=== PATIENT | female | born 1990 | race Caucasian/White ===

== ENCOUNTER 2018-01-11 09:37 | Day surgery (SDC) | payer OTHER ==
[~2018-01-11 09:37] MED LIST: MIDAZOLAM 2 MG/2 ML VIAL IV PRN; SODIUM CHLORIDE 0.9% 1,000 ML IV SCH; ceFAZolin 1,000 MG in SODIUM CHLORIDE 0.9% IRRIGATIO 250 ML IRRIGATION ONE; ceFAZolin IN SWFI 2 GM/20 ML SYRINGE IVP ONE; fentaNYL (PF) 50 MCG/ML 2 ML AMP IV PRN
[2018-01-11 10:47] LABS: Basophils % (A) 1 %; Eosinophils # (A) 0.1 k/uL (0-0.7); Eosinophils % (A) 2 %; HGB 13.1 gm/dL (11.4-16.0); Lymphocytes % (A) 23 %; MCH 29.6 pg (25.0-35.0); MCHC 32.7 g/dL (31.0-37.0); MCV 90.5 fL (80.0-100.0); Mean Platelet Volume 10.3; Monocytes # (A) 0.4 k/uL (0-1.0); Monocytes % (A) 10 %; Neutrophils # (A) 2.8 k/uL (1.3-7.7); Neutrophils % (A) 63 %; Platelet Count 148 k/uL (150-450); RBC 4.42 m/uL (3.80-5.40); RDW 13.9 % (11.5-15.5); WBC 4.5 k/uL (3.8-10.6)
[2018-01-11 11:00] LABS: Anion Gap 12 mmol/L; Blood Urea Nitrogen 10 mg/dL (7-17); Calcium 9.3 mg/dL (8.4-10.2); Carbon Dioxide 22 mmol/L (22-30); Chloride 107 mmol/L (98-107); Glucose 79 mg/dL (74-99); Potassium 4.3 mmol/L (3.5-5.1); Sodium 141 mmol/L (137-145)
[2018-01-11] MEDS ORDERED: PROPOFOL 10 MG/ML 20 ML VIAL IV ONE (11:42)
[2018-01-11] MEDS ORDERED: ONDANSETRON 4 MG/2 ML VIAL ONE (11:42)
[2018-01-11] MEDS ORDERED: MIDAZOLAM 2 MG/2 ML VIAL ONE (11:42)
[2018-01-11] MEDS ORDERED: MORPHINE SULFATE 10 MG/ML SYRINGE ONE (11:42)
[2018-01-11] MEDS ORDERED: diphenhydrAMINE 50 MG/ML 1 ML VIAL ONE (11:42)
[2018-01-11] MEDS ORDERED: fentaNYL (PF) 50 MCG/ML 2 ML AMP ONE (11:42)
[2018-01-11] MEDS ORDERED: KETAMINE 10 MG/ML 20 ML VIAL ONE (11:42)
[2018-01-11] MEDS ORDERED: IOPAMIDOL-250 50ML BTL IV ONE (11:50)
[2018-01-11] MEDS ORDERED: LIDOCAINE 1% INJ 10MG/ML (20 ML MDV) SQ ONE (12:15)
[2018-01-11] MEDS ORDERED: ACETAMINOPHEN TAB 325 MG TAB PO PRN (13:03)
--- NOTE | 2018-01-11 13:20 | P.PCN ---
Date of Procedure: 01/11/18 Preoperative Diagnosis: Nonischemic cardiomyopathy and CHF Postoperative Diagnosis: The same Procedure(s) Performed: Single-chamber AICD implantation, axillary venography Description of Procedure: HISTORY: This is a 27-year-old female with history of nonischemic cardiomyopathy and mitral valve disease status post mitral valve replacement was referred by Dr. HOSSEIN Keating for prophylactic AICD implantation. Patient was explained the risks of the procedure including possibility of infection, myocardial perforation, tamponade and bleeding. Patient fully understood and accepted. CONSENT:I have discussed the risks, benefits and alternative therapies for the above-mentioned procedure and for both sedation/analgesia as well as necessary blood product administration, if indicated, as they pertain to this patient. The patient has indicated understanding and acceptance of the risks and procedures discussed. PROCEDURE: Patient was brought to the lab in a fasting state. Patient was prepped and draped in the usual fashion. Department of anesthesia provided analgesia and anesthesia during the procedure.. The skin below the left clavicle was infiltrated with lidocaine. An incision was made parallel to deltopectoral groove was deepened until the pectoral fascia was exposed. A pocket was created by blunt dissection and cautery. Axillary venography was performed to delineate the course of the axillary vein. 1 stick were performed into extrathoracic portion of the axillary vein and 1 sheath was advanced over the guidewires into left in subclavian vein. Conscious Sedation: This was managed by department of anesthesia LEADS: VENTRICULAR: This was manufactured by [employer]. Model number is 6935M-55 cm. Serial number is [id number]. The ventricular lead is maneuvered l with help of a straight and curved stylets into the left ventricle apical region. Satisfactory position was obtained and threshold measurements were made. And thresholds were obtained. THRESHOLDS: VENTRICLE: The minimal patient threshold was 0.5 V at a pulse width of 0.5 ms. R-wave: 5.6 ohms.. The impedance is 1024. Through the device the R waves are about 8 mV. . The shock impedance is 61 ohms. The lead and pulse generator remained in the pocket after it was washed with antibiotics. Pocket was closed in the usual fashion. The fascia was closed with 2-0 Prolene ,the subcutaneous tissue was closed with 3-0 Prolene and the skin was closed with 4-0 Prolene. DFT TESTING: This was performed under general anesthesia. VF was induced with T shock. It was appropriately detected without any fallout' s. However shocks of 15 J followed by 20 J failed to convert patient to sinus rhythm. External defibrillator was performed with success. After 5 minutes. VF was again induced. This was appropriately detected. Shocks of 15 J with reverse polarity failed to convert patient to sinus rhythm, however shocks of 25 J with reverse polarity was successful in converting patient to sinus rhythm. Patient tolerated the procedure well PROGRAMMING: The bradycardia pacing: MODE: VVI RATE: 40 OUTPUT: Ventricle: 3.5 V at pulse width of 0.4 ms Tachycardia Programming: VF zone: This is programmed to a rate of 1 88 bpm. ATP during charging is programmed. The shocks were programmed to 35 J 6 with reverse polarity. VT zone. This was programmed to a rate of 167-188. Therapies were programmed to burst pacing 3 followed by ramp pacing 3 followed by 20 J followed by 35 J 3. All strokes are programmed with reverse polarity FINAL IMPRESSION: # #1. Successful implantation of single-chamber single coil AICD #2. DFT testing #3. Axillary venography COMPLICATIONS: None PLAN:. We will monitored on the telemetry unit. Prophylactic antibiotics we' ll continue. Further recommendations depend upon clinical course. Chest x-ray will obtain tomorrow morning. Possible discharge in am.
[2018-01-11] MEDS: HYDROcodone/APAP 5-325MG 1 EACH TAB PO PRN ×4 (14:03→23:53)
[2018-01-11] MEDS: LACTATED RINGERS 1,000 ML IV SCH (16:14)
[2018-01-11 16:48] VITALS: BMI 24.5
[2018-01-11] MEDS: ceFAZolin IN SWFI 2 GM/20 ML SYRINGE IVP SCH (17:30)
[2018-01-11] MEDS: METOPROLOL TARTRATE 25 MG TAB PO SCH (20:48)
[2018-01-11] MEDS: SACUBITRIL/VALSARTAN 24 MG-26 MG TABLET PO SCH (20:48)
[2018-01-11] MEDS ORDERED: MELATONIN 5 MG TABLET PO SCH (21:00)
[2018-01-12] MEDS: ceFAZolin IN SWFI 2 GM/20 ML SYRINGE IVP SCH ×3 (00:59→12:50)
[2018-01-12] MEDS: HYDROcodone/APAP 5-325MG 1 EACH TAB PO PRN ×2 (06:43→12:54)
[2018-01-12 08:34] VITALS: RESP 18
--- NOTE | 2018-01-12 08:42 | XR ---
EXAMINATION TYPE: XR chest 2V DATE OF EXAM: 01/12/2018 COMPARISON: None INDICATION: Lead placement check TECHNIQUE: Frontal and lateral views of the chest are obtained. FINDINGS: The heart size is mildly prominent. The pulmonary vasculature is normal. The lungs are clear. Pacemaker is over the left chest. Single lead is directed towards the cardiac apex. Sternotomy wires are present from prior cardiac valve surgery. IMPRESSION: 1. No acute pulmonary process. 2. Pacemaker on the left with the lead towards the cardiac apex. No pneumothorax is present.
[2018-01-12] MEDS: METOPROLOL TARTRATE 25 MG TAB PO SCH (08:55)
[2018-01-12] MEDS ORDERED: FUROSEMIDE 20 MG TAB PO SCH (09:00)
[2018-01-12] MEDS ORDERED: SPIRONOLACTONE 25 MG TAB PO SCH (09:00)
[2018-01-12] MEDS: SACUBITRIL/VALSARTAN 24 MG-26 MG TABLET PO SCH (09:09)
[2018-01-12 11:51] VITALS: BP 97/63; PULSE 75; TEMP 97.9
[2018-01-12] MEDS: LACTATED RINGERS 1,000 ML IV SCH (12:19)
--- NOTE | 2018-01-12 15:06 | P.DS ---
Providers Attending physician: Kelli Bauman Primary care physician: Cristiano Marinomley [facility] Course: INTERVAL HISTORY: The patient is a 27-year-old female admitted to the hospital for elective placement of single chamber [employer] AICD for non-ischemic cardiomyopathy and mitral valve disease s/p mitral valve replacement. Procedure was tolerated well with no immediate complications. Chest xray this morning reveals no evidence of pneumothorax with proper lead placement towards cardiac apex. [employer] has done initial check of pacemaker and found to be operating properly. She denies symptoms of chest pain, shortness of breath, dizziness, palpitations, nausea, vomiting or diaphoresis. Telemetry tracings have been unremarkable. Blood pressure 97/63, heart rate 75, respirations 18, temp 97.9. Patient is 96 % room air. Laboratory data reviewed, hemoglobin 13.1 , platelets 148, sodium 141, potassium 4.3, creatinine 0.7. FINAL IMPRESSION: Status post single-chamber AICD placement Nonischemic cardiomyopathy History of mitral valve replacement PLAN: Patient may be able to be discharged home today. Resume all medications. Prescription Keflex 500 mg every 6 hours 3 days and for Finley 5/325 mg when necessary has been given for pain at the incision site. We will make him a follow-up appointment with Dr. Keating in one week. Patient Condition at Discharge: Stable Plan - Discharge Summary Discharge Rx Participant: No New Discharge Prescriptions: New Cephalexin [Keflex] 500 mg PO Q6HR 3 Days #12 cap Continue Metoprolol Tartrate 25 mg PO BID Furosemide [Lasix] 20 mg PO DAILY Spironolactone [Aldactone] 25 mg PO DAILY Sacubitril/Valsartan [Entresto 24 mg-26 mg Tablet] 1 each PO BID Discharge Medication List Furosemide [Lasix] 20 mg PO DAILY 01/06/18 [History] Metoprolol Tartrate 25 mg PO BID 01/06/18 [History] Sacubitril/Valsartan [Entresto 24 mg-26 mg Tablet] 1 each PO BID 01/06/18 [ History] Spironolactone [Aldactone] 25 mg PO DAILY 01/06/18 [History] Cephalexin [Keflex] 500 mg PO Q6HR 3 Days #12 cap 01/12/18 [Rx] Follow up Appointment(s)/Referral(s): Kelli Bauman MD [STAFF PHYSICIAN] - 1 Week
== END 2018-01-12 15:55 | disposition home or self-care (01) ==
LOC: CATHEP 09:37 → 3OBS 12:55 → CATHEP 01-12 15:55
PROVIDERS: ATTEND Internal Medicine Cardiovascular Disease
DX: I42.8 Other cardiomyopathies (principal); Z00.6 Encounter for examination for normal comparison and control in clinical research program; Z95.2 Presence of prosthetic heart valve; Z79.82 Long term (current) use of aspirin; Z79.899 Other long term (current) drug therapy; Z88.8 Allergy status to other drugs, medicaments and biological substances
CPT/HCPCS: 93641; 33249; 80048; 85025; 81025; 71046; C1895; C1722; J2250; J1200; J2270; J2405; J0690 ×3; J2001; J3010; J2704; Q9966

== ENCOUNTER 2018-03-15 10:02 | Day surgery (SDC) | payer OTHER ==
[2018-03-10 12:43] VITALS: BMI 24.2
[~2018-03-15 10:02] MED LIST changes: +HYDROmorphone 0.5 MG/0.5 ML SYRINGE IVP PRN; +LACTATED RINGERS 1,000 ML IV SCH; -ceFAZolin 1,000 MG in SODIUM CHLORIDE 0.9% IRRIGATIO 250 ML IRRIGATION ONE; -ceFAZolin IN SWFI 2 GM/20 ML SYRINGE IVP ONE; -fentaNYL (PF) 50 MCG/ML 2 ML AMP IV PRN
[2018-03-15 11:04] LABS: Basophils % (A) 0 %; Eosinophils # (A) 0.1 k/uL (0-0.7); Eosinophils % (A) 2 %; HCT 33.6 % (34.0-46.0); Lymphocytes # (A) 0.6 k/uL (1.0-4.8); Lymphocytes % (A) 18 %; MCH 29.4 pg (25.0-35.0); MCHC 32.7 g/dL (31.0-37.0); Mean Platelet Volume 10.7; Monocytes # (A) 0.3 k/uL (0-1.0); Monocytes % (A) 9 %; Neutrophils # (A) 2.3 k/uL (1.3-7.7); Neutrophils % (A) 69 %; Platelet Count 103 k/uL (150-450); RBC 3.74 m/uL (3.80-5.40); RDW 13.9 % (11.5-15.5); WBC 3.3 k/uL (3.8-10.6)
[2018-03-15 11:46] LABS: Anion Gap 8 mmol/L; Blood Urea Nitrogen 13 mg/dL (7-17); Calcium 9.1 mg/dL (8.4-10.2); Carbon Dioxide 22 mmol/L (22-30); Chloride 109 mmol/L (98-107); Glucose 87 mg/dL (74-99); Potassium 4.1 mmol/L (3.5-5.1); Sodium 139 mmol/L (137-145)
[2018-03-15] MEDS ORDERED: ceFAZolin IN SWFI 2 GM/20 ML SYRINGE IVP STA (13:19)
[2018-03-15] MEDS ORDERED: IV FLUID CONTINUATION 900 ML IV ONE ×2 (13:20)
[2018-03-15] MEDS ORDERED: METOPROLOL TARTRATE 5 MG/5 ML VIAL IVP ONE ×2 (13:20→15:57)
[2018-03-15] MEDS ORDERED: fentaNYL (PF) 50 MCG/ML 2 ML AMP ONE (13:20)
[2018-03-15] MEDS ORDERED: ISOPROTERENOL 250 MCG/1.25 ML SYR IV ONE (13:20)
[2018-03-15] MEDS ORDERED: MIDAZOLAM 2 MG/2 ML VIAL ONE (13:20)
[2018-03-15] MEDS ORDERED: PROPOFOL 10 MG/ML 20 ML VIAL IV ONE (13:20)
[2018-03-15] MEDS ORDERED: LIDOCAINE 1% INJ 10MG/ML (20 ML MDV) ONE (13:41)
[2018-03-15] MEDS ORDERED: LIDOCAINE 1% INJ 10MG/ML (20 ML MDV) SQ ONE (13:59)
[2018-03-15] MEDS ORDERED: HEPARIN SODIUM (1,000 UNIT/ML) 1,000 UNIT in SODIUM CHLORIDE 0.9% 1,000 ML IRRIGATION ONE (15:18)
[2018-03-15] MEDS ORDERED: ACETAMINOPHEN IV (For NPO) 1,000 MG in EMPTY BAG 1 BAG IVPB ONE (15:59)
[2018-03-15] MEDS ORDERED: ACETAMINOPHEN TAB 325 MG TAB PO PRN (15:59)
--- NOTE | 2018-03-15 16:15 | P.PCN ---
Preoperative Diagnosis: Dear Dr. Hsu Mrs. Parkinson underwent a diagnostic EP study which revealed are very easily inducible right atrial tachycardia with a rapid ventricular response which was responsible for her inappropriate ICD shocks. During the tachycardia her blood pressure would drop below 80 mmHg systolic in the supine position She underwent successful mapping and ablation of the tachycardia. The tachycardia was rendered noninducible I have changed her metoprolol tartrate to metoprolol succinate since she also has a cardiomyopathy. Other medications remain unchanged She will continue to follow with you and Dr. Bauman as before. Thank you for entrusting me with the care of the patient Warm regards Sincerely Lui Dunn
[2018-03-15] MEDS: METOPROLOL SUCCINATE (ER) 50 MG TAB.ER.24H PO SCH (16:56)
[2018-03-15] MEDS: HYDROcodone/APAP 5-325MG 1 EACH TAB PO PRN ×2 (16:56→21:01)
--- NOTE | 2018-03-15 17:27 | PCN ---
PROCEDURE NOTE Radha Parkinson is a 28-year-old female who has cardiomyopathy and a single-chamber ICD. She is a patient of Dr. Cristiano Hsu and Dr. Bauman. She received an inappropriate ICD shock for supraventricular tachycardia with a short RP interval and she was brought in for a diagnostic EP study and radiofrequency ablation. The patient was brought to the EP lab in a fasting state. Written informed consent was obtained prior to the procedure. IV antibiotics were administered prior to the procedure. Right and left groins were prepped. The ICD was interrogated and reprogrammed. VT and VF detections were turned off. Venous sheaths were placed in the right and left femoral veins, and via these diagnostic catheters were placed in the high right atrium, His bundle area, right ventricle and coronary sinus. Sinus cycle length 691 milliseconds, MN interval 185 milliseconds, QRS 86 milliseconds, QT 388 milliseconds. AH and HV intervals were within normal limits. Sinus node recovery time at a paced cycle length of 400 milliseconds was 778 milliseconds. AV node Wenckebach block 290 milliseconds. VA Wenckebach block greater than 400 milliseconds. Supraventricular tachycardia with a short RP interval was very easily inducible with catheter manipulation as well as with high right atrial and CS pacing. Ventricular pacing could not entrain the tachycardia. The tachycardia was dissociated. It had a high to low sequence with a W-shaped morphology in lead V1 and upright in the inferior leads. Isuprel was also started and the tachycardia was inducible with atrial pacing. On low-dose Isuprel, the tachycardia was induced multiple times, both with catheter manipulation as well as with burst stimulation in the coronary sinus to facilitate 3D mapping. An RF ablation catheter was placed in the right atrium. Three-D electroanatomic mapping was performed. The tachycardia was localized to the upper part of the christiano terminalis/upper part of the right atrial free wall. At this site, good diaphragmatic stimulation was tested for and there was no evidence for phrenic nerve stimulation. Thereafter, RF energy was applied, between 25 and 30 cook, and good power and good contact force was achieved and successful ablation was performed. Thereafter, despite atrial and coronary sinus stimulation, the tachycardia could not be induced with up to triple extrastimuli from multiple sites. Burst stimulation was also performed. Straight pacing was also performed. No tachycardia could be induced. All catheters were then removed at the end of the procedure. The patient was transferred back to telemetry. 1. The ICD was re-interrogated and re-programmed. VT zone at 176 beats per minute with appropriate antitachycardia pacing, cardioversion and defibrillation. The patient has a high DFT. 2. VF zone at 214 beats per minute with ATP during charging followed by defibrillation at max output in reverse polarity. Monitor zone was also programmed. 3. Long detection intervals were also programmed. IMPRESSION: Diagnostic EP study revealing right atrial free wall atrial tachycardia was successfully ablated. Single-chamber ICD was re-programmed to long detection intervals to minimize inappropriate ICD shocks. PROCEDURES PERFORMED: 1. Single-chamber ICD interrogation with reprogramming. 2. Comprehensive diagnostic EP study with CS pacing and recording. 3. Comprehensive diagnostic EP study with attempted arrhythmia induction. 4. CS pacing and recording. 5. Drug stimulation. 6. Three-D mapping. 7. Atrial tachycardia/SVT ablation (79069). 8. ICD interrogation with re-programming at the end of the procedure. MMODL / IJN: [id number] /
[2018-03-15 17:30] VITALS: RESP 16
[2018-03-15] MEDS: SACUBITRIL/VALSARTAN 24 MG-26 MG TABLET PO SCH (20:04)
[2018-03-15] MEDS: GABAPENTIN 100 MG CAP PO SCH (20:05)
--- NOTE | 2018-03-16 08:46 | P.DS ---
Providers Attending physician: Lui Dunn Primary care physician: [facility] Course: Patient is doing well. She is resting comfortably in bed no chest discomfort dizziness lightheadedness. Minimal tenderness in the groins. No bleeding no hematoma Normal heart sounds Normal S1 normal S2 Breath sounds are clear no rhonchi no crackles Abdomen Groins of healed well no hematoma no bruising no swelling Impression Coronary myopathy, valvular heart disease Inappropriate ICD shocks secondary to SVT Diagnostic EP study revealed right atrial tachycardia, lateral right atrium, upper Status post successful ablation Suggest Continue current cardiac medications and follow Dr. Bauman in 2 weeks. She will be discharged today in a few hours after she ambulates in the hallways and if her groins are stable Patient Condition at Discharge: Stable Plan - Discharge Summary Discharge Rx Participant: No New Discharge Prescriptions: No Action RX: Metoprolol Tartrate 62.5 mg PO DAILY RX: Furosemide [Lasix] 20 mg PO DAILY RX: Spironolactone [Aldactone] 25 mg PO DAILY RX: Sacubitril/Valsartan [Entresto 24 mg-26 mg Tablet] 1 each PO BID Gabapentin [Neurontin] 100 mg PO TID Discharge Medication List RX: Furosemide [Lasix] 20 mg PO DAILY 01/06/18 [History] RX: Metoprolol Tartrate 62.5 mg PO DAILY 01/06/18 [History] RX: Sacubitril/Valsartan [Entresto 24 mg-26 mg Tablet] 1 each PO BID 01/06/18 [ History] RX: Spironolactone [Aldactone] 25 mg PO DAILY 01/06/18 [History] Gabapentin [Neurontin] 100 mg PO TID 03/10/18 [History]
[2018-03-16] MEDS ORDERED: SPIRONOLACTONE 25 MG TAB PO SCH (09:00)
[2018-03-16] MEDS ORDERED: FUROSEMIDE 20 MG TAB PO SCH (09:00)
[2018-03-16] MEDS: SACUBITRIL/VALSARTAN 24 MG-26 MG TABLET PO SCH (09:56)
[2018-03-16] MEDS: GABAPENTIN 100 MG CAP PO SCH (09:56)
[2018-03-16] MEDS: METOPROLOL SUCCINATE (ER) 50 MG TAB.ER.24H PO SCH (09:56)
[2018-03-16 11:11] VITALS: BP 118/67; PULSE 86; TEMP 97.3
== END 2018-03-16 13:15 | disposition home or self-care (01) ==
LOC: CATHEP 10:02 → 1SOBS 15:52 → CATHEP 03-16 13:15
PROVIDERS: ATTEND Internal Medicine Clinical Cardiac Electrophysiology
DX: T82.198A Other mechanical complication of other cardiac electronic device, initial encounter (principal); I42.0 Dilated cardiomyopathy; I47.1 Supraventricular tachycardia; I10 Essential (primary) hypertension; Z82.49 Family history of ischemic heart disease and other diseases of the circulatory system; Z79.899 Other long term (current) drug therapy; Z88.8 Allergy status to other drugs, medicaments and biological substances; Z72.0 Tobacco use
CPT/HCPCS: 93623; 93613; 93653; 80048; 85025; 81025; C1769 ×3; C1894; C1730 ×2; C1732; J2250; J2001; J3010; J1644; J0131; J2704; J0690

== ENCOUNTER 2018-05-06 22:34 | Observation (INO) | payer OTHER ==
[2018-05-06] MEDS ORDERED: SODIUM CHLORIDE 0.9% 500 ML 500 ML IV STA (22:39)
--- NOTE | 2018-05-06 22:43 | ED ---
Overdose HPI - General Stated Complaint: Overdose, ETOH Time Seen by Provider: 05/06/18 22:39 Source: EMS, RN notes reviewed, old records reviewed Mode of arrival: EMS - History of Present Illness Initial Comments: This is a 28-year-old female with a history of cardiomyopathy heart valve surgery who apparently is not supposed be drinking alcohol but did drink alcohol tonight approximate 8 heart iced teas with a half a pint of schnapps. She also took 5 loose bar. Unclear exactly why. EMS was called and found her unresponsive on the floor and her home she started to arouse once in the a.m. was. She was brought in for evaluation. Patient is a poor historian this time. No trauma is reported. MD Complaint: intentional overdose, other - Related Data Home Medications Medication Instructions Recorded Confirmed Furosemide [Lasix] 20 mg PO DAILY 01/06/18 05/06/18 Metoprolol Tartrate 62.5 mg PO DAILY 01/06/18 03/15/18 Sacubitril/Valsartan [Entresto 24 1 tab PO BID 01/06/18 05/06/18 mg-26 mg Tablet] Spironolactone [Aldactone] 25 mg PO DAILY 01/06/18 05/06/18 Gabapentin [Neurontin] 100 mg PO TID 03/10/18 05/06/18 Buspar Unknown Dose 5 tab PO ONCE 05/06/18 05/06/18 Allergies Allergy/AdvReac Type Severity Reaction Status Date / Time peas Allergy Rash/Hives Verified 05/06/18 22:58 guaifenesin [From Robitussin] AdvReac Nausea & Verified 05/06/18 22:58 Vomiting Review of Systems ROS Statement: Those systems with pertinent positive or pertinent negative responses have been documented in the HPI. ROS Other: All systems not noted in ROS Statement are negative. Limitations: ROS unobtainable due to patients medical condition Past Medical History Past Medical History: Liver Disease Additional Past Medical History / Comment(s): Cardiomyopathy; Hepatitis C; Neurofibromatosis, see Dr Dunn H & P History of Any Multi-Drug Resistant Organisms: None Reported Past Surgical History: AICD, Cardiac Ablation, Cardiac Valve Replacement Additional Past Surgical History / Comment(s): Heart valve replacement in [place], Detached Retina surgery, left lung pneumothorax- after heart valve replacement. liver biopsy 2011. Past Anesthesia/Blood Transfusion Reactions: No Reported Reaction Type of Cardiac Device: AICD Device Placement Date:: 01-11-18 Past Psychological History: Anxiety Smoking Status: Never smoker Past Alcohol Use History: None Reported Past Drug Use History: None Reported - Past Family History Mother Family Medical History: No Reported History General Exam - General Exam Comments Initial Comments: This a well-developed asthenic appearing female who is lethargic but does respond to questioning. There is a smell of alcohol conjoiners on her breath Limitations: altered mental status General appearance: appears intoxicated, lethargic Head exam: Present: atraumatic, normocephalic, normal inspection Eye exam: Present: normal appearance, PERRL, EOMI. Absent: scleral icterus, conjunctival injection, periorbital swelling ENT exam: Present: normal exam, mucous membranes moist Neck exam: Present: normal inspection. Absent: tenderness, meningismus, lymphadenopathy Respiratory exam: Present: normal lung sounds bilaterally. Absent: respiratory distress, wheezes, rales, rhonchi, stridor Cardiovascular Exam: Present: regular rate, normal rhythm, normal heart sounds. Absent: systolic murmur, diastolic murmur, rubs, gallop, clicks GI/Abdominal exam: Present: soft, normal bowel sounds. Absent: distended, tenderness, guarding, rebound, rigid Extremities exam: Present: normal inspection, full ROM, normal capillary refill. Absent: tenderness, pedal edema, joint swelling, calf tenderness Back exam: Present: normal inspection Neurological exam: Present: alert, altered, CN II-XII intact. Absent: motor sensory deficit Psychiatric exam: Present: depressed, flat affect Skin exam: Present: warm, dry, intact, normal color. Absent: rash Course Vital Signs 05/06/18 05/06/18 05/07/18 22:45 23:34 00:00 Temperature 97.1 F L 98.2 F Pulse Rate 101 H 97 87 Respiratory 18 18 20 Rate Blood Pressure 122/89 125/88 121/85 O2 Sat by Pulse 97 95 98 Oximetry Medical Decision Making - Medical Decision Making I did discuss findings with the patient does have acute pancreatitis likely alcohol related. Additionally patient does drink a considerable amount of alcohol on his potential for going into DTs/withdrawals and she does states she is a drink alcohol the morning otherwise she will feel badly - Lab Data Result diagrams: 05/06/18 22:55 05/06/18 22:55 Lab Results 05/06/18 05/06/18 05/06/18 Range/Units 22:55 22:55 22:55 WBC 4.4 (3.8-10.6) k/uL RBC 4.18 (3.80-5.40) m/uL Hgb 11.7 (11.4-16.0) gm/dL Hct 36.8 (34.0-46.0) % MCV 87.9 (80.0-100.0) fL MCH 28.0 (25.0-35.0) pg MCHC 31.8 (31.0-37.0) g/dL RDW 14.8 (11.5-15.5) % Plt Count 120 L (150-450) k/uL Neutrophils % 75 % Lymphocytes % 15 % Monocytes % 7 % Eosinophils % 1 % Basophils % 0 % Neutrophils # 3.3 (1.3-7.7) k/uL Lymphocytes # 0.7 L (1.0-4.8) k/uL Monocytes # 0.3 (0-1.0) k/uL Eosinophils # 0.1 (0-0.7) k/uL Basophils # 0.0 (0-0.2) k/uL PT (9.0-12.0) sec INR (<1.2) Sodium 137 (137-145) mmol/L Potassium 4.0 (3.5-5.1) mmol/L Chloride 103 (98-107) mmol/L Carbon Dioxide 22 (22-30) mmol/L Anion Gap 12 mmol/L BUN 6 L (7-17) mg/dL Creatinine 0.55 (0.52-1.04) mg/dL Est GFR (CKD-EPI)AfAm >90 (>60 ml/min/1.73 sqM) Est GFR (CKD-EPI)NonAf >90 (>60 ml/min/1.73 sqM) Glucose 79 (74-99) mg/dL Calcium 8.6 (8.4-10.2) mg/dL Magnesium 2.0 (1.6-2.3) mg/dL Total Bilirubin 0.4 (0.2-1.3) mg/dL AST 32 (14-36) U/L ALT 40 (9-52) U/L Alkaline Phosphatase 39 (38-126) U/L Total Creatine Kinase 50 (30-135) U/L CK-MB (CK-2) 0.6 (0.0-2.4) ng/mL CK-MB (CK-2) Rel Index 1.2 Troponin I <0.012 (0.000-0.034) ng/mL Total Protein 7.2 (6.3-8.2) g/dL Albumin 4.4 (3.5-5.0) g/dL Amylase 120 H (30-110) U/L Lipase 895 H (23-300) U/L Urine HCG, Qual (Not Detectd) Salicylates <1.0 mg/dL Urine Opiates Screen (NotDetected) Ur Oxycodone Screen (NotDetected) Urine Methadone Screen (NotDetected) Ur Propoxyphene Screen (NotDetected) Acetaminophen <10.0 ug/mL Ur Barbiturates Screen (NotDetected) U Tricyclic Antidepress (NotDetected) Ur Phencyclidine Scrn (NotDetected) Ur Amphetamines Screen (NotDetected) U Methamphetamines Scrn (NotDetected) U Benzodiazepines Scrn (NotDetected) Urine Cocaine Screen (NotDetected) U Marijuana (THC) Screen (NotDetected) Serum Alcohol 148 mg/dL 05/06/18 05/06/18 05/06/18 Range/Units 22:55 23:45 23:45 WBC (3.8-10.6) k/uL RBC (3.80-5.40) m/uL Hgb (11.4-16.0) gm/dL Hct (34.0-46.0) % MCV (80.0-100.0) fL MCH (25.0-35.0) pg MCHC (31.0-37.0) g/dL RDW (11.5-15.5) % Plt Count (150-450) k/uL Neutrophils % % Lymphocytes % % Monocytes % % Eosinophils % % Basophils % % Neutrophils # (1.3-7.7) k/uL Lymphocytes # (1.0-4.8) k/uL Monocytes # (0-1.0) k/uL Eosinophils # (0-0.7) k/uL Basophils # (0-0.2) k/uL PT 10.0 (9.0-12.0) sec INR 0.9 (<1.2) Sodium (137-145) mmol/L Potassium (3.5-5.1) mmol/L Chloride (98-107) mmol/L Carbon Dioxide (22-30) mmol/L Anion Gap mmol/L BUN (7-17) mg/dL Creatinine (0.52-1.04) mg/dL Est GFR (CKD-EPI)AfAm (>60 ml/min/1.73 sqM) Est GFR (CKD-EPI)NonAf (>60 ml/min/1.73 sqM) Glucose (74-99) mg/dL Calcium (8.4-10.2) mg/dL Magnesium (1.6-2.3) mg/dL Total Bilirubin (0.2-1.3) mg/dL AST (14-36) U/L ALT (9-52) U/L Alkaline Phosphatase (38-126) U/L Total Creatine Kinase (30-135) U/L CK-MB (CK-2) (0.0-2.4) ng/mL CK-MB (CK-2) Rel Index Troponin I (0.000-0.034) ng/mL Total Protein (6.3-8.2) g/dL Albumin (3.5-5.0) g/dL Amylase (30-110) U/L Lipase (23-300) U/L Urine HCG, Qual Not Detected (Not Detectd) Salicylates mg/dL Urine Opiates Screen Not Detected (NotDetected) Ur Oxycodone Screen Not Detected (NotDetected) Urine Methadone Screen Not Detected (NotDetected) Ur Propoxyphene Screen Not Detected (NotDetected) Acetaminophen ug/mL Ur Barbiturates Screen Not Detected (NotDetected) U Tricyclic Antidepress Not Detected (NotDetected) Ur Phencyclidine Scrn Not Detected (NotDetected) Ur Amphetamines Screen Not Detected (NotDetected) U Methamphetamines Scrn Not Detected (NotDetected) U Benzodiazepines Scrn Not Detected (NotDetected) Urine Cocaine Screen Not Detected (NotDetected) U Marijuana (THC) Screen Not Detected (NotDetected) Serum Alcohol mg/dL - EKG Data -: EKG Interpreted by Me EKG shows normal: sinus rhythm (Sinus rhythm of 100. Interval 180 QRS duration 100 QT since QTC 390/503 pulmonary disease pattern incomplete right bundle- branch block nonspecific ST configuration prolonged QT by atrial enlargement) Disposition Clinical Impression: Acute pancreatitis, Alcohol intoxication, Medication overdose, Alcohol abuse Disposition: ADMITTED IP TO THIS HOSP Condition: Stable Referrals: Cristiano Hsu MD [Primary Care Provider] - 1-2 days
[2018-05-06 23:20] LABS: Basophils % (A) 0 %; Eosinophils # (A) 0.1 k/uL (0-0.7); Eosinophils % (A) 1 %; HCT 36.8 % (34.0-46.0); HGB 11.7 gm/dL (11.4-16.0); Lymphocytes # (A) 0.7 k/uL (1.0-4.8); Lymphocytes % (A) 15 %; MCHC 31.8 g/dL (31.0-37.0); MCV 87.9 fL (80.0-100.0); Mean Platelet Volume 10.6; Monocytes # (A) 0.3 k/uL (0-1.0); Monocytes % (A) 7 %; Neutrophils # (A) 3.3 k/uL (1.3-7.7); Neutrophils % (A) 75 %; Platelet Count 120 k/uL (150-450); RBC 4.18 m/uL (3.80-5.40); RDW 14.8 % (11.5-15.5); WBC 4.4 k/uL (3.8-10.6)
[2018-05-06 23:21] LABS: INR 0.9 (<1.2)
[2018-05-06 23:25] LABS: ALT 40 U/L (9-52); AST 32 U/L (14-36); Acetaminophen <10.0 ug/mL; Albumin 4.4 g/dL (3.5-5.0); Alkaline Phosphatase 39 U/L (38-126); Amylase 120 U/L (30-110); Anion Gap 12 mmol/L; Blood Urea Nitrogen 6 mg/dL (7-17); Calcium 8.6 mg/dL (8.4-10.2); Carbon Dioxide 22 mmol/L (22-30); Chloride 103 mmol/L (98-107); Glucose 79 mg/dL (74-99); Lipase 895 U/L (23-300); Salicylate <1.0 mg/dL; Sodium 137 mmol/L (137-145); Total Bilirubin 0.4 mg/dL (0.2-1.3); Total Protein 7.2 g/dL (6.3-8.2)
[2018-05-06 23:34] LABS: Alcohol 148 mg/dL
[2018-05-06 23:36] LABS: Creatine Kinase 50 U/L (30-135)
[2018-05-06 23:50] LABS: Creatine Kinase MB 0.6 ng/mL (0.0-2.4); Troponin I <0.012 ng/mL (0.000-0.034)
[2018-05-07 00:07] LABS: Amphetamine Screen,Urine Not Detected (NotDetected); Barbiturate Screen,Urine Not Detected (NotDetected); Benzodiazepines Screen,Urine Not Detected (NotDetected); Cocaine Screen,Urine Not Detected (NotDetected); Methadone Screen, Urine Not Detected (NotDetected); Opiate Screen,Urine Not Detected (NotDetected); Oxycodone Screen, Urine Not Detected (NotDetected); Phencyclidine Screen,Urine Not Detected (NotDetected); Tricyclic Antidepressant,Urine Not Detected (NotDetected); Urn Cannabinoid Scrn Not Detected (NotDetected)
[2018-05-07] MEDS ORDERED: NALOXONE 0.4 MG/ML 1 ML VIAL IV PRN (00:20)
[2018-05-07] MEDS ORDERED: LORazepam 2 MG/ML INJ IV PRN ×3 (00:23)
[2018-05-07] MEDS: SODIUM CHLORIDE 0.9% 1,000 ML IV SCH ×3 (01:07→20:05)
[2018-05-07 03:42] VITALS: BMI 22.2
[2018-05-07] MEDS: GABAPENTIN 100 MG CAP PO SCH ×3 (08:15→20:04)
[2018-05-07] MEDS: FUROSEMIDE 20 MG TAB PO SCH (08:15)
[2018-05-07] MEDS: SPIRONOLACTONE 25 MG TAB PO SCH (08:16)
[2018-05-07] MEDS: SACUBITRIL/VALSARTAN 24 MG-26 MG TABLET PO SCH ×2 (08:16→20:05)
--- NOTE | 2018-05-07 12:41 | P.CN ---
Psychiatric Consult - . Consult date: 05/07/18 Consult:: 05/07/18 09:36 Intentional overdose of alcohol Assessment and Plan Assessment: This is a 28-year-old female with a history of cardiomyopathy heart valve surgery who apparently is not supposed be drinking alcohol but did drink alcohol tonight approximate 8 heart iced teas with a half a pint of schnapps. She also took 5 loose bar. Unclear exactly why. EMS was called and found her unresponsive on the floor and her home she started to arouse once in the a.m. was. She was brought in for evaluation. Patient is a poor historian this time. No trauma is reported. Patient does admit to drinking and has been working with her therapist at [facility] this decrease and stop her drinking. This was not an intentional overdose. MD Complaint: intentional overdose, other - Related Data Home Medications Medication Instructions Recorded Confirmed Furosemide [Lasix] 20 mg PO DAILY 01/06/18 05/06/18 Metoprolol Tartrate 62.5 mg PO DAILY 01/06/18 03/15/18 Sacubitril/Valsartan [Entresto 24 1 tab PO BID 01/06/18 05/06/18 mg-26 mg Tablet] Spironolactone [Aldactone] 25 mg PO DAILY 01/06/18 05/06/18 Gabapentin [Neurontin] 100 mg PO TID 03/10/18 05/06/18 Buspar Unknown Dose 5 tab PO ONCE 05/06/18 05/06/18 Allergies Allergy/AdvReac Type Severity Reaction Status Date / Time peas Allergy Rash/Hives Verified 05/06/18 22:58 guaifenesin [From Robitussin] AdvReac Nausea & Verified 05/06/18 22:58 Vomiting Past Medical History Past Medical History: Liver Disease Additional Past Medical History / Comment(s): Cardiomyopathy; Hepatitis C; Neurofibromatosis, see Dr Dunn H & P History of Any Multi-Drug Resistant Organisms: None Reported Past Surgical History: AICD, Cardiac Ablation, Cardiac Valve Replacement Additional Past Surgical History / Comment(s): Heart valve replacement in [place], Detached Retina surgery, left lung pneumothorax- after heart valve replacement. liver biopsy 2011. Past Anesthesia/Blood Transfusion Reactions: No Reported Reaction Type of Cardiac Device: AICD Device Placement Date:: 01-11-18 Past Psychological History: Anxiety Smoking Status: Never smoker Past Alcohol Use History: None Reported Past Drug Use History: None Reported - Past Family History Mother Family Medical History: No Reported History Mental Status Examination - The patient presents alert, pleasant, and cooperative. There calmly seated without any agitated behavior. [She] reports that [her] mood is good. Affect is congruent and euthymic. [She] deny having any suicidal or homicidal ideation intent or plan. [She] denies any auditory or visual hallucinations. There is no evidence of any delusional thought content. [Her] thought process is linear and goal-directed. [Her] speech is fluent and nonpressured. [Her] memory and concentration is grossly intact for the purposes of this session. Psychiatric impression: Alcohol use disorder moderate with mixed anxiety Psychiatric recommendations: She is to continue to go to [facility] and work with her therapist. I also recommend 90 meetings in 90 days at and talk with her primary care physician about using alternative medicines to help her stop drinking. She does not require a sitter and discussed with the nurse that she does not require a sitter since she is not suicidal homicidal. Thank you for the consult Felipe Mata D.O. PhD (1) Acute pancreatitis Current Visit: Yes Status: Acute Code(s): K85.90 - ACUTE PANCREATITIS WITHOUT NECROSIS OR INFECTION, UNSP SNOMED Code(s): 924776343 (2) Alcohol abuse Current Visit: Yes Status: Acute Code(s): F10.10 - ALCOHOL ABUSE, UNCOMPLICATED SNOMED Code(s): 91569212 Time with Patient: Less than 30
[2018-05-07] MEDS: METOPROLOL SUCCINATE (ER) 25 MG TAB.ER.24H PO SCH (12:59)
[2018-05-07] MEDS: THIAMINE 100 MG TAB PO SCH (16:03)
[2018-05-07] MEDS ORDERED: ENOXAPARIN 40 MG/0.4 ML SYRINGE SQ SCH (22:30)
--- NOTE | 2018-05-08 00:02 | HP ---
HISTORY AND PHYSICAL DATE OF ADMISSION: May 07, 2018 DATE OF SERVICE: May 0705 25. PRESENTING COMPLAINT: Decreased responsiveness. HISTORY OF PRESENTING COMPLAINT: This is a 28-year-old patient who follows with Dr. Hsu. The patient's chronic stable medical conditions include chronic liver disease from hepatitis C, could be from tattoos, cardiomyopathy that she has had as a child, follows with Dr. Ayesha Keating, neurofibromatosis and the patient has AICD. Patient decided to drink with her boyfriend and her father's friends and brought what is Twisted Tea. The patient normally has 3 cans a day, which contains about 5% of alcohol but yesterday decided to drink far more than that and had some other alcoholic drinks and next thing she remembers that she was brought here. She became unresponsive and in the ER, slowly started coming around. Initially the intention was not known. Psychiatry was consulted, which did clear the patient earlier today. The patient told me she had no suicidal ideation and intent except that she was having a good time with people as mentioned above. There was no chest pain or palpitations. In the morning, when I saw this patient, patient is hungry, wanted food. REVIEW OF SYSTEMS: CONSTITUTIONAL: Tired. HEENT: None. RESPIRATORY: None. CARDIOVASCULAR: None. GASTROINTESTINAL: None. GENITOURINARY: None. MUSCULOSKELETAL none. DERMATOLOGICAL, HEMATOLOGIC, LYMPHATIC: none. PSYCHIATRY: None. NEUROLOGICAL: None. PAST MEDICAL HISTORY: Of hepatitis C with liver disease, cardiomyopathy since a child, neurofibromatosis, AICD. PAST SURGICAL HISTORY: AICD, cardiac ablation, cardiac valve replacement, heart valve replacement, detached retina surgery, left lung pneumothorax after heart valve replacement, liver biopsy in 2011, AICD. SOCIAL HISTORY: Smokes 2 cigarettes a day. Drinks 3 cans of Twisted Tea. Has got 5% alcohol. The patient lives with her boyfriend and mother, uncle and also works in a [employer]. FAMILY HISTORY: Reviewed, noncontributory to presentation. HOME MEDICATIONS: 1. Metoprolol 25 mg p.o. daily. 2. BuSpar. 3. Aldactone 25 mg a day. 4. Entresto one tab b.i.d. 5. Neurontin 100 mg t.i.d. 6. Lasix 20 mg p.o. daily. ALLERGIES: GUAIFENESIN, PENICILLIN. PHYSICAL EXAMINATION: VITAL SIGNS: Vital signs on presentation, temperature 97.1, pulse 101, respiratory 18, blood pressure 120/89, pulse ox 97% on room air. GENERAL APPEARANCE: Average build, lying in bed, tired, sitting up, awake. EYES: Pupils equal. Conjunctivae normal. HEENT: External appearance of nose and ears normal. Oral cavity normal. NECK: JVD not raised. Mass not palpable. RESPIRATORY: Effort normal. LUNGS: Fair entry. CARDIOVASCULAR: First and second sounds no edema ABDOMEN: Soft, nontender. Liver and spleen not palpable. LYMPHATICS: No lymph nodes palpable in the neck and axillae. PSYCHIATRY: Alert and oriented x3. Mood and affect normal. NEUROLOGICAL: Pupils equal. Cranial nerves grossly intact. Power and sensation grossly intact. INVESTIGATIONS: White count 4.4, hemoglobin 11.7, platelets 120. Potassium 4.0, BUN 6, creatinine 0.55. Amylase 120, lipase 895. Urine HCG negative. Serum alcohol 148. ASSESSMENT: 1. Decreased responsiveness from acute alcohol intoxication. 2. Acute pancreatitis with minimal symptoms due to alcoholism. 3. Chronic cardiomyopathy, ejection fraction not known. 4. Hepatitis C with chronic liver disease. 5. AICD in place. PLAN: Patient's diet will be advanced. We will keep the patient on gambling monitor. Home medications will be resumed. Will repeat pancreatic enzymes in the morning. Care was discussed with the patient. Advised against smoking and alcohol. I have encouraged the patient to be out of bed as tolerated. Copy to Dr. Hsu. RUSS / CARLOS: [id number] /
[2018-05-08 01:09] VITALS: RESP 16
[2018-05-08 07:18] LABS: Amylase 43 U/L (30-110); Lipase 363 U/L (23-300)
[2018-05-08 07:44] VITALS: PULSE 90
[2018-05-08] MEDS: GABAPENTIN 100 MG CAP PO SCH ×2 (08:25→16:38)
[2018-05-08] MEDS: SPIRONOLACTONE 25 MG TAB PO SCH (08:25)
[2018-05-08] MEDS: SACUBITRIL/VALSARTAN 24 MG-26 MG TABLET PO SCH (08:25)
[2018-05-08] MEDS: METOPROLOL SUCCINATE (ER) 25 MG TAB.ER.24H PO SCH (08:25)
[2018-05-08] MEDS: FUROSEMIDE 20 MG TAB PO SCH (08:25)
[2018-05-08] MEDS: THIAMINE 100 MG TAB PO SCH ×2 (12:24→16:38)
[2018-05-08 14:42] VITALS: BP 105/71; TEMP 98.8
--- NOTE | 2018-05-09 02:48 | DS ---
DISCHARGE SUMMARY DATE OF ADMISSION: 05/07/2018 DATE OF DISCHARGE: 05/08/2018 FINAL DIAGNOSES: 1. Acute metabolic encephalopathy from acute alcohol intoxication. 2. Acute pancreatitis due to alcoholism. 3. Chronic cardiomyopathy ejection fraction not known, cause undetermined. 4. Hepatitis C with chronic liver disease. 5. AICD in place. HOSPITAL COURSE: This patient has a known cardiomyopathy, EF not known and hepatitis C, who does drink alcohol, decided to drink more alcohol with her friends. Found to be unresponsive after drinking excessive alcohol. There is some element of acute pancreatitis. Doing much better by the time of discharge. Tolerating a diet. The patient's serum alcohol is 148 on admission. By the time of discharge, patient is back to baseline. Patient is counseled against use of any alcohol. PHYSICAL EXAMINATION: VITAL SIGNS: Temperature 98, pulse 92, respiratory rate 16, blood pressure 105/71. LUNGS: Clear. Cardiovascular: 1st and 2nd sounds normal. Psych AO x3. INVESTIGATIONS: White count 4.4, amylase down to 43, lipase 363. DISCHARGE MEDICATIONS: 1. Lasix 20 mg a day. 2. Entresto one tablet p.o. b.i.d. 3. Aldactone 25 mg a day. 4. Neurontin 100 mg t.i.d. 5. Buspar 5 mg as before. 6. Metoprolol succinate 25 mg p.o. daily. 7. Thiamine 100 mg p.o. b.i.d. Follow with Dr. Hsu in 3 days. No alcohol. Copy to Dr. Hsu. MMLATANYA / MIREYAN: [id number] /
== END 2018-05-08 19:22 | disposition home or self-care (01) ==
LOC: EC 22:34 → 4SSUR 05-07 00:20 → OBSVTOIN 05-07 00:20 → INTOOBSV 05-07 00:20 → UNDODISIN 05-08 19:22
PROVIDERS: ADMIT Hospitalist; ATTEND Hospitalist
DX: F10.229 Alcohol dependence with intoxication, unspecified (principal); G93.41 Metabolic encephalopathy; K85.20 Alcohol induced acute pancreatitis without necrosis or infection; I42.9 Cardiomyopathy, unspecified; B19.20 Unspecified viral hepatitis C without hepatic coma; F17.210 Nicotine dependence, cigarettes, uncomplicated; Q85.00 Neurofibromatosis, unspecified; T51.0X1A Toxic effect of ethanol, accidental (unintentional), initial encounter; F41.9 Anxiety disorder, unspecified; Z95.2 Presence of prosthetic heart valve; Z95.810 Presence of automatic (implantable) cardiac defibrillator; Z79.899 Other long term (current) drug therapy; Z88.8 Allergy status to other drugs, medicaments and biological substances; Z88.0 Allergy status to penicillin; Z91.018 Allergy to other foods; Y90.6 Blood alcohol level of 120-199 mg/100 ml
CPT/HCPCS: 96361 ×2; 96372; 96374; 82075; 99285; 36415; 94760; 93005; 80053; 82150 ×2; 82550; 82553; 83690 ×2; 83735; 84484; 85025; 85610; 81025; 80306; 83520 ×2; G0378 ×2; G0480; J2060; J1650; 80320

== ENCOUNTER → 2019-06-21 | Outpatient (CLI) | payer OTHER ==
[2019-06-21 12:43] LABS: Prothrombin Time 10.1 sec (9.0-12.0)
[2019-06-21 13:08] LABS: HCT 41.5 % (34.0-46.0); HGB 13.3 gm/dL (11.4-16.0); MCH 29.2 pg (25.0-35.0); Mean Platelet Volume 11.4; Platelet Count 126 k/uL (150-450); RBC 4.56 m/uL (3.80-5.40); RDW 13.7 % (11.5-15.5); WBC 5.2 k/uL (3.8-10.6)
[2019-06-21 18:42] LABS: African American GFR (CKD) 137.6 (60.0-200.0); Albumin 4.7 g/dL (3.80-4.90); Albumin/Globulin Ratio 2.04 (1.60-3.17); Bilirubin, Conjugated 0.3 mg/dL (0.20-0.40); Bilirubin,Unconjugated 0.9 mg/dL; Globulin 2.3 g/dL (1.6-3.3); Non-African American GFR(CKD) 118.7 (60.0-200.0); Total Bilirubin 1.2 mg/dL (0.2-1.2)
== END | disposition home or self-care (01) ==
LOC: LABWHC1 11:26
PROVIDERS: ATTEND Physician Assistant
DX: B18.2 Chronic viral hepatitis C (principal)
CPT/HCPCS: 36415; 80076; 82565; 85027; 85610; 87522

== ENCOUNTER 2019-07-07 23:08 | Emergency (ER) | payer OTHER ==
[2019-07-07 23:14] VITALS: TEMP 98
[2019-07-07] MEDS ORDERED: SODIUM CHLORIDE 0.9% 1,000 ML IV STA (23:25)
[2019-07-07] MEDS ORDERED: SODIUM CHLORIDE 0.9% 500 ML IV STA (23:25)
[2019-07-07 23:51] LABS: Basophils % (A) 0 %; Eosinophils # (A) 0.2 k/uL (0-0.7); Eosinophils % (A) 2 %; HCT 39.9 % (34.0-46.0); HGB 13.2 gm/dL (11.4-16.0); Lymphocytes # (A) 0.9 k/uL (1.0-4.8); Lymphocytes % (A) 11 %; MCH 29.6 pg (25.0-35.0); MCHC 33.2 g/dL (31.0-37.0); MCV 89.3 fL (80.0-100.0); Mean Platelet Volume 10.7; Monocytes # (A) 0.5 k/uL (0-1.0); Monocytes % (A) 7 %; Neutrophils # (A) 6.3 k/uL (1.3-7.7); Neutrophils % (A) 78 %; Platelet Count 134 k/uL (150-450); RBC 4.47 m/uL (3.80-5.40); RDW 13.6 % (11.5-15.5)
[2019-07-08 00:05] LABS: INR 0.9 (<1.2); Partial Thromboplastin Time 22.5 sec (22.0-30.0); Prothrombin Time 9.9 sec (9.0-12.0)
[2019-07-08 00:13] LABS: ALT 46 U/L (4-34); AST 42 U/L (14-36); African American GFR (CKD) >90 (>60 ml/min/1.73 sqM); Albumin 4.5 g/dL (3.5-5.0); Alkaline Phosphatase 60 U/L (38-126); Anion Gap 7 mmol/L; Blood Urea Nitrogen 17 mg/dL (7-17); Calcium 9.8 mg/dL (8.4-10.2); Carbon Dioxide 29 mmol/L (22-30); Chloride 103 mmol/L (98-107); Glucose 81 mg/dL (74-99); Non-African American GFR(CKD) >90 (>60 ml/min/1.73 sqM); Potassium 4.1 mmol/L (3.5-5.1); Sodium 139 mmol/L (137-145); Total Bilirubin 0.8 mg/dL (0.2-1.3); Total Protein 7.6 g/dL (6.3-8.2)
--- NOTE | 2019-07-08 00:20 | CT ---
EXAMINATION TYPE: CT abdomen pelvis w con DATE OF EXAM: 07/08/2019 COMPARISON: None HISTORY: abd pain CT DLP: 634.7 mGycm Automated exposure control for dose reduction was used. CONTRAST: Performed with IV Contrast, patient injected with 100 mL of Isovue 300. Multiple axial sections were obtained from the diaphragm to the floor the pelvis with intravenous con trast. Lung bases are clear. There is no pleural effusion. Heart size is normal. There are sternal wires. Th ere is pacemaker wire in the heart. Liver spleen pancreas stomach appear normal. Gallbladder is contracted with small gallstone. There is no adrenal mass. Kidneys show satisfactory contrast opacification. There is no hydronephrosi s. Appendix is posterior and appears normal. Ureters are not dilated. Bladder distends smoothly. Gauri yed images show normal renal excretion. There is no inguinal hernia. There is 3.6 cm septated cyst in the right adnexal region consistent with ovarian cyst. Lumbar vertebra have normal spacing and align ment. Posterior elements are intact. There is no compression fracture. Bony pelvis is intact. Uterus appears absent. There is no mesenteric edema. There is no ascites or free air. There is no sign of a bowel obstructio n. IMPRESSION: Septated large cyst on the right ovary. Normal appendix. Small calcified gallstone. No dilated ducts.
[2019-07-08 01:06] VITALS: RESP 18
[2019-07-08] MEDS ORDERED: MORPHINE SULFATE 4 MG/ML SYRINGE IV STA (01:27)
--- NOTE | 2019-07-08 02:10 | ED ---
General Adult HPI - General Chief complaint: GI Bleed Stated complaint: GI Bleed Time Seen by Provider: 07/07/19 23:18 Source: patient, RN notes reviewed, old records reviewed Mode of arrival: ambulatory Limitations: no limitations - History of Present Illness Initial comments: 29-year-old female patient with extensive past medical history including cardio myopathy, hepatitis C, AICD, presents ED for chief complaint of rectal bleeding, abdominal pain. Patient reports that she had a endoscopy as well as colonoscopy performed today. Reports that she isn't having symptoms otherwise periumbilical abdominal discomfort. She also reports that she feels that she had a bowel movement when she strained she did have some rectal bleeding. Approximately one hour later the same occurred. This was that roughly 4:00 and 5:00. Patient states that she cannot be due to hysterectomy. Denies any other complaints. Systemic: Pt denies fatigue, fever/chills, rash. Pt denies weakness, night sweats, weight loss. Neuro: Pt denies headache, visual disturbances, syncope or pre-syncope. HEENT: Pt denies ocular discharge or irritation, otalgia, rhinorrhea, pharyngitis or notable lymphadenopathy. Cardiopulmonary: Pt denies chest pain, SOB, heart palpitations, dyspnea on exertion. Abdominal/GI: Pt denies n/v/d. : Pt denies dysuria, burning w/ urination, frequency/urgency. Denies new onset urinary or bowel incontinence. MSK: Pt denies myalgia, loss of strength or function in extremities. Neuro: Pt denies new onset weakness, paresthesias. - Related Data Home Medications Medication Instructions Recorded Confirmed Furosemide [Lasix] 20 mg PO DAILY 01/06/18 07/07/19 Sacubitril/Valsartan [Entresto 24 1 tab PO BID 01/06/18 07/07/19 mg-26 mg Tablet] Spironolactone [Aldactone] 25 mg PO DAILY 01/06/18 07/07/19 Gabapentin [Neurontin] 100 mg PO DAILY 03/10/18 07/07/19 Metoprolol(Unknown Dose) 1 tab PO DAILY 07/06/19 07/07/19 Potassium(Unknown Dose) 1 tab PO DAILY 07/06/19 07/07/19 Allergies Allergy/AdvReac Type Severity Reaction Status Date / Time Latex, Natural Rubber Allergy Rash/Hives Verified 07/07/19 23:14 peas Allergy Rash/Hives Verified 07/07/19 23:14 guaifenesin [From Robitussin] AdvReac Nausea & Verified 07/07/19 23:14 Vomiting Review of Systems ROS Statement: Those systems with pertinent positive or pertinent negative responses have been documented in the HPI. ROS Other: All systems not noted in ROS Statement are negative. Past Medical History Past Medical History: Asthma, Deep Vein Thrombosis (DVT), Liver Disease Additional Past Medical History / Comment(s): Cardiomyopathy; Hepatitis C; Neurofibromatosis, asthma as a child, SOB w/exertion, ?DVT several years ago, "inflammed gallbladder" per pt., nausea, abd. pain, 16%EF per pt. History of Any Multi-Drug Resistant Organisms: None Reported Past Surgical History: AICD, Cardiac Ablation, Cardiac Valve Replacement, Hysterectomy Additional Past Surgical History / Comment(s): Heart valve replacement in [place], Detached Retina surgery, left lung pneumothorax- after heart valve replacement. liver biopsy 2011. Past Anesthesia/Blood Transfusion Reactions: No Reported Reaction Type of Cardiac Device: AICD Device Placement Date:: 01-11-18 Past Psychological History: Anxiety Smoking Status: Current some day smoker Past Alcohol Use History: None Reported Past Drug Use History: None Reported - Past Family History Mother Family Medical History: No Reported History General Exam - General Exam Comments Initial Comments: Constitutional: NAD, AOX3, Pt has pleasant affect. HEENT: NC/AT, trachea midline, neck supple, no lymphadenopathy. Posterior pharynx non erythematous, without exudates. External ears appear normal, without discharge. Mucous membranes moist. Eyes PERRLA, EOM intact. There is no scleral icterus. No pallor noted. Cardiopulmonary: RRR, no murmurs, rubs or gallops, no JVD noted. Lungs CTAB in anterior and posterior simpson. No peripheral edema. Abdominal exam: Abdomen soft and non-distended. Abdomen mildly tender to p alpation periumbilical region.. Bowel sounds active in LLQ. No hepatosplenomegaly. No ecchymosis Neuro: CN II-XII grossly intact. No nuchal rigidity. No raccon eyes, no chaudhary sign, no hemotympanum. No cervical spinal tenderness. MSK: No posterior calf tenderness bilaterally, homans sign negative bilaterally. Posterior tibialis and radial pulse +2 bilaterally. Sensation intact in upper and lower extremities. Full active ROM in upper and lower extremities, 5/5 stregnth. Rectal: External rectal exam by Dr. Jaquez did not display any tear or fissure. Scant amount of bright red blood noted. Limitations: no limitations Course Vital Signs 07/07/19 07/08/19 23:12 01:04 Temperature 98 F Pulse Rate 95 82 Respiratory 20 18 Rate Blood Pressure 148/88 136/86 O2 Sat by Pulse 99 98 Oximetry Medical Decision Making - Medical Decision Making 29-year-old female patient with extensive past medical history including cardiomyopathy, hepatitis C, AICD, presents ED for chief complaint of rectal bleeding, abdominal pain. Patient reports that she had a endoscopy as well as colonoscopy performed today. Reports that she isn't having symptoms otherwise periumbilical abdominal discomfort. She also reports that she feels that she h ad a bowel movement when she strained she did have some rectal bleeding. Approximately one hour later the same occurred. This was that roughly 4:00 and 5:00. Patient states that she cannot be due to hysterectomy. Denies any other complaints. Pt VSS, afebrile. Physical exam displayed: Abdomen soft and non-distended. Abdomen mildly tender to palpation periumbilical region. External rectal exam by Dr. Jaquez did not display any tear or fissure. Scant amount of bright red blood noted. Laboratory investigations were obtained. Platelets 134. Correlation studies are within normal limits. Mild elevation of AST ALT. CT abdomen and pelvis was performed, this displayed septated large cyst on the right ovary. Normal appendix, small calcified gallstone, no dilated ducts. Attempts to page GI Dr. Chaney were unsuccessful. Patient will be discharged, will follow up with GI and primary care provider tomorrow. Return to ER if condition worsens. Case discussed with Dr. Jaquez. - Lab Data Result diagrams: 07/07/19 23:40 07/07/19 23:40 Lab Results 07/07/19 07/07/19 07/07/19 Range/Units 23:40 23:40 23:40 WBC 8.0 (3.8-10.6) k/uL RBC 4.47 (3.80-5.40) m/uL Hgb 13.2 (11.4-16.0) gm/dL Hct 39.9 (34.0-46.0) % MCV 89.3 (80.0-100.0) fL MCH 29.6 (25.0-35.0) pg MCHC 33.2 (31.0-37.0) g/dL RDW 13.6 (11.5-15.5) % Plt Count 134 L (150-450) k/uL Neutrophils % 78 % Lymphocytes % 11 % Monocytes % 7 % Eosinophils % 2 % Basophils % 0 % Neutrophils # 6.3 (1.3-7.7) k/uL Lymphocytes # 0.9 L (1.0-4.8) k/uL Monocytes # 0.5 (0-1.0) k/uL Eosinophils # 0.2 (0-0.7) k/uL Basophils # 0.0 (0-0.2) k/uL PT (9.0-12.0) sec INR (<1.2) APTT (22.0-30.0) sec Sodium 139 (137-145) mmol/L Potassium 4.1 (3.5-5.1) mmol/L Chloride 103 (98-107) mmol/L Carbon Dioxide 29 (22-30) mmol/L Anion Gap 7 mmol/L BUN 17 (7-17) mg/dL Creatinine 0.72 (0.52-1.04) mg/dL Est GFR (CKD-EPI)AfAm >90 (>60 ml/min/1.73 sqM) Est GFR (CKD-EPI)NonAf >90 (>60 ml/min/1.73 sqM) Glucose 81 (74-99) mg/dL Plasma Lactic Acid David 1.5 (0.7-2.0) mmol/L Calcium 9.8 (8.4-10.2) mg/dL Total Bilirubin 0.8 (0.2-1.3) mg/dL AST 42 H (14-36) U/L ALT 46 H (4-34) U/L Alkaline Phosphatase 60 (38-126) U/L Total Protein 7.6 (6.3-8.2) g/dL Albumin 4.5 (3.5-5.0) g/dL 07/07/19 Range/Units 23:40 WBC (3.8-10.6) k/uL RBC (3.80-5.40) m/uL Hgb (11.4-16.0) gm/dL Hct (34.0-46.0) % MCV (80.0-100.0) fL MCH (25.0-35.0) pg MCHC (31.0-37.0) g/dL RDW (11.5-15.5) % Plt Count (150-450) k/uL Neutrophils % % Lymphocytes % % Monocytes % % Eosinophils % % Basophils % % Neutrophils # (1.3-7.7) k/uL Lymphocytes # (1.0-4.8) k/uL Monocytes # (0-1.0) k/uL Eosinophils # (0-0.7) k/uL Basophils # (0-0.2) k/uL PT 9.9 (9.0-12.0) sec INR 0.9 (<1.2) APTT 22.5 (22.0-30.0) sec Sodium (137-145) mmol/L Potassium (3.5-5.1) mmol/L Chloride (98-107) mmol/L Carbon Dioxide (22-30) mmol/L Anion Gap mmol/L BUN (7-17) mg/dL Creatinine (0.52-1.04) mg/dL Est GFR (CKD-EPI)AfAm (>60 ml/min/1.73 sqM) Est GFR (CKD-EPI)NonAf (>60 ml/min/1.73 sqM) Glucose (74-99) mg/dL Plasma Lactic Acid David (0.7-2.0) mmol/L Calcium (8.4-10.2) mg/dL Total Bilirubin (0.2-1.3) mg/dL AST (14-36) U/L ALT (4-34) U/L Alkaline Phosphatase (38-126) U/L Total Protein (6.3-8.2) g/dL Albumin (3.5-5.0) g/dL Disposition Clinical Impression: Rectal bleeding Disposition: HOME SELF-CARE Condition: Stable Instructions (If sedation given, give patient instructions): Rectal Bleeding (ED) Additional Instructions: Follow-up with primary care provider and GI tomorrow. Return to ER if condition worsens in any way. Is patient prescribed a controlled substance at d/c from ED?: No Referrals: Cristiano Hsu MD [Primary Care Provider] - 1-2 days Mandeep Lantigua MD [STAFF PHYSICIAN] - 1-2 days
[2019-07-08 02:32] VITALS: BP 136/83; PULSE 71
== END 2019-07-08 03:01 | disposition home or self-care (01) ==
LOC: EC 23:08
DX: K62.5 Hemorrhage of anus and rectum (principal); N83.201 Unspecified ovarian cyst, right side; K80.20 Calculus of gallbladder without cholecystitis without obstruction; I42.9 Cardiomyopathy, unspecified; B19.20 Unspecified viral hepatitis C without hepatic coma; F17.200 Nicotine dependence, unspecified, uncomplicated; Z79.899 Other long term (current) drug therapy; Z91.040 Latex allergy status; Z91.010 Allergy to peanuts; Z88.8 Allergy status to other drugs, medicaments and biological substances; Z86.69 Personal history of other diseases of the nervous system and sense organs; Z95.810 Presence of automatic (implantable) cardiac defibrillator; Z95.5 Presence of coronary angioplasty implant and graft; Z86.718 Personal history of other venous thrombosis and embolism; Z90.710 Acquired absence of both cervix and uterus; Z95.4 Presence of other heart-valve replacement
CPT/HCPCS: 36415; 80053; 83605; 85025; 85610; 85730; 74177; 99285; 96374; J2270; Q9967

== ENCOUNTER 2019-09-25 22:07 | Emergency (ER) | payer OTHER ==
[2019-09-25 22:18] VITALS: TEMP 97.9
[2019-09-25 23:15] LABS: HCT 41.5 % (34.0-46.0); HGB 13.2 gm/dL (11.4-16.0); MCH 28.4 pg (25.0-35.0); MCHC 31.8 g/dL (31.0-37.0); MCV 89.5 fL (80.0-100.0); Mean Platelet Volume 11.3; Platelet Count 105 k/uL (150-450); RBC 4.64 m/uL (3.80-5.40); RDW 13.5 % (11.5-15.5); WBC 11.9 k/uL (3.8-10.6)
[2019-09-25 23:16] LABS: ALT 13 U/L (4-34); AST 24 U/L (14-36); African American GFR (CKD) >90 (>60 ml/min/1.73 sqM); Albumin 5.1 g/dL (3.5-5.0); Alkaline Phosphatase 46 U/L (38-126); Amylase 51 U/L (30-110); Anion Gap 12 mmol/L; Blood Urea Nitrogen 10 mg/dL (7-17); Calcium 9.6 mg/dL (8.4-10.2); Carbon Dioxide 24 mmol/L (22-30); Chloride 100 mmol/L (98-107); Glucose 111 mg/dL (74-99); Magnesium 1.9 mg/dL (1.6-2.3); Non-African American GFR(CKD) >90 (>60 ml/min/1.73 sqM); Potassium 4.1 mmol/L (3.5-5.1); Sodium 136 mmol/L (137-145); Total Bilirubin 0.5 mg/dL (0.2-1.3); Total Protein 8.4 g/dL (6.3-8.2)
--- NOTE | 2019-09-25 23:22 | XR ---
EXAMINATION TYPE: XR chest 2V DATE OF EXAM: 09/25/2019 COMPARISON: 01/12/2018 HISTORY: Chest pain TECHNIQUE: FINDINGS: Heart is normal. There are sternal wires. There is cardiac valve surgery. There is a left a xillary pacemaker. Lungs are clear of infiltrate. There is no heart failure. Bony thorax is intact. IMPRESSION: No active cardiopulmonary disease. Inspiration improved compared to old exam. There is cl earing of subsegmental minimal atelectasis right lung base compared to old exam.
--- NOTE | 2019-09-25 23:29 | ED ---
Chest Pain HPI - General Chief Complaint: Chest Pain Stated Complaint: Chest Pain Time Seen by Provider: 09/25/19 22:59 Source: patient, family Mode of arrival: ambulatory Limitations: no limitations - History of Present Illness Initial Comments: This patient is 29-year-old woman who presents to be evaluated for chest pains that she states started coming on early Thursday. She describes it as a stinging in the left upper chest. She states it comes on when she gets anxious which happens at work. She states that if she is able to relax the pain imp roves. She has not had any associated symptoms. Complaint: chest pain Onset/Timin -: days(s) Onset: during rest Pain Location: left chest Pain Radiation: none Severity: severe Quality: other (Stinging) Consistency: constant Improves With: other (Relaxing) Worsens With: nothing Treatments Prior to Arrival: none - Related Data Home Medications Medication Instructions Recorded Confirmed Furosemide [Lasix] 20 mg PO DAILY 01/06/18 07/07/19 Sacubitril/Valsartan [Entresto 24 1 tab PO BID 01/06/18 07/07/19 mg-26 mg Tablet] Spironolactone [Aldactone] 25 mg PO DAILY 01/06/18 07/07/19 Gabapentin [Neurontin] 100 mg PO DAILY 03/10/18 07/07/19 Metoprolol(Unknown Dose) 1 tab PO DAILY 07/06/19 07/07/19 Potassium(Unknown Dose) 1 tab PO DAILY 07/06/19 07/07/19 Allergies Allergy/AdvReac Type Severity Reaction Status Date / Time Latex, Natural Rubber Allergy Rash/Hives Verified 09/25/19 22:18 peas Allergy Rash/Hives Verified 09/25/19 22:18 guaifenesin [From Robitussin] AdvReac Nausea & Verified 09/25/19 22:18 Vomiting Review of Systems ROS Statement: Those systems with pertinent positive or pertinent negative responses have been documented in the HPI. ROS Other: All systems not noted in ROS Statement are negative. Constitutional: Denies: fever, chills Respiratory: Denies: cough, dyspnea Cardiovascular: Reports: chest pain. Denies: palpitations, orthopnea, edema, syncope Gastrointestinal: Denies: abdominal pain, nausea, vomiting, diarrhea Genitourinary: Denies: dysuria, hematuria, abnormal menses Skin: Denies: rash Neurological: Denies: headache, weakness Psychiatric: Reports: anxiety EKG Findings - EKG Comments: EKG Findings:: Similar to comparison from 05/06/2018 - EKG Results: EKG: sinus rhythm, normal axis - Blocks, [place], Hypertrophy, ST Abn: AV and intraventricular conduction: right bundle branch block (fixed/intermittent, complete/incomplete) (Incomplete) Repolarization changes or abnormalities: nonspecific abnormality, ST segment, and/or T wave, Q-T interval prolongation Past Medical History Past Medical History: Asthma, Deep Vein Thrombosis (DVT), Liver Disease Additional Past Medical History / Comment(s): Cardiomyopathy; Hepatitis C; Neurofibromatosis, asthma as a child, SOB w/exertion, ?DVT several years ago, "inflammed gallbladder" per pt., nausea, abd. pain, 16%EF per pt. History of Any Multi-Drug Resistant Organisms: None Reported Past Surgical History: AICD, Cardiac Ablation, Cardiac Valve Replacement, Hysterectomy Additional Past Surgical History / Comment(s): Heart valve replacement in [place], Detached Retina surgery, left lung pneumothorax- after heart valve replacement. liver biopsy 2011. Defibrillator, 2019 Past Anesthesia/Blood Transfusion Reactions: No Reported Reaction Type of Cardiac Device: AICD Device Placement Date:: 01-11-18 Past Psychological History: Anxiety Smoking Status: Current some day smoker Past Alcohol Use History: None Reported Past Drug Use History: None Reported - Past Family History Mother Family Medical History: No Reported History General Exam Limitations: no limitations General appearance: alert, in no apparent distress Head exam: Present: atraumatic, normocephalic Eye exam: Present: normal appearance. Absent: scleral icterus, conjunctival injection ENT exam: Present: normal oropharynx Neck exam: Present: normal inspection Respiratory exam: Present: normal lung sounds bilaterally, chest wall tenderness. Absent: respiratory distress, wheezes, rales, rhonchi, stridor, accessory muscle use Cardiovascular Exam: Present: regular rate, normal rhythm, systolic murmur, gallop. Absent: diastolic murmur, rubs GI/Abdominal exam: Present: soft. Absent: distended, tenderness, guarding, rebound, rigid, mass Extremities exam: Present: normal inspection, normal capillary refill. Absent: pedal edema, calf tenderness Back exam: Present: normal inspection. Absent: CVA tenderness (R), CVA tenderness (L) Neurological exam: Present: alert Skin exam: Present: warm, dry, intact, normal color. Absent: rash Course Vital Signs 09/25/19 09/25/19 09/25/19 22:13 22:34 23:00 Temperature 97.9 F Pulse Rate 90 90 92 Pulse Rate [ Pulse Oximetery ] Respiratory 18 16 Rate Blood Pressure 135/82 127/69 O2 Sat by Pulse 100 Oximetry 09/25/19 09/25/19 23:19 23:30 Temperature Pulse Rate 89 Pulse Rate [ 92 Pulse Oximetery ] Respiratory 20 18 Rate Blood Pressure 123/84 O2 Sat by Pulse Oximetry Disposition Clinical Impression: Atypical chest pain Disposition: HOME SELF-CARE Condition: Good Instructions (If sedation given, give patient instructions): Chest Pain (ED) Is patient prescribed a controlled substance at d/c from ED?: No Referrals: Cristiano Hsu MD [Primary Care Provider] - 1-2 days
[2019-09-25 23:34] LABS: D-Dimer 0.63 mg/L FEU (<0.60); INR 0.9 (<1.2); Partial Thromboplastin Time 20.5 sec (22.0-30.0); Prothrombin Time 9.6 sec (9.0-12.0)
[2019-09-25 23:38] LABS: Lymphocytes # (M) 0.48 k/uL (1.0-4.8); Monocytes # (M) 0.12 k/uL (0-1.0); Neutrophils # (M) 11.31 k/uL (1.3-7.7); Neutrophils % (M) 95 %; Nucleated Red Blood Cells 0 /100 WBC (0-0); Total Cells Counted 100
[2019-09-25 23:40] LABS: Large Platelets Present
[2019-09-25 23:44] VITALS: RESP 18
--- NOTE | 2019-09-26 00:35 | CT ---
EXAMINATION TYPE: CT chest angio for PE DATE OF EXAM: 09/26/2019 COMPARISON: None HISTORY: elevated d-dimer CT DLP: 232.7 mGycm Automated exposure control for dose reduction was used. CONTRAST: Performed with IV Contrast, patient injected with 60mL mL of Isovue 370. There are 3-D post processed images. The lungs are clear of consolidation. There is no evidence of a pulmonary mass. There are sternal wir es. There is a left axillary pacemaker. There is cardiac valve surgery. There are no hilar masses. There is no mediastinal adenopathy. Thoracic aorta is intact without evide nce of aneurysm or dissection. Upper abdominal soft tissues appear intact. There is normal contrast opacification of the pulmonary arteries. There are no filling defects. Heart size is fairly normal. IMPRESSION: Negative exam. No evidence of pulmonary embolism.
[2019-09-26 01:11] VITALS: BP 130/88; PULSE 100
== END 2019-09-26 01:11 | disposition home or self-care (01) ==
LOC: EC 22:07
DX: R07.89 Other chest pain (principal); I42.9 Cardiomyopathy, unspecified; F17.200 Nicotine dependence, unspecified, uncomplicated; Z79.899 Other long term (current) drug therapy; Z91.040 Latex allergy status; Z91.018 Allergy to other foods; Z88.8 Allergy status to other drugs, medicaments and biological substances; Z95.810 Presence of automatic (implantable) cardiac defibrillator; Z95.2 Presence of prosthetic heart valve; Z98.890 Other specified postprocedural states
CPT/HCPCS: 36415; 93005; 85379; 80053; 82150; 83690; 83735; 84484; 85025; 85610; 85730; 71046; 71275; 99285; Q9967

== ENCOUNTER → 2019-10-18 | Outpatient (CLI) | payer OTHER | END | disposition home or self-care (01) | LOC: LABWHC1 10:57 | PROVIDERS: ATTEND Surgery | DX: Z11.59 Encounter for screening for other viral diseases (principal) ==

== ENCOUNTER 2019-10-20 07:21 | Day surgery (SDC) | payer OTHER ==
[2019-10-19 10:36] VITALS: BMI 25.2
[~2019-10-20 07:21] MED LIST changes: +ACETAMINOPHEN TAB 500 MG TAB PO ONE; +DEXAMETHASONE SOD PHOSPHATE 10 MG/ML 1 ML VIAL IV ONE; +HEPARIN SODIUM,PORCINE 5,000 UNIT/ML 1 ML VIAL SQ ONE; -LACTATED RINGERS 1,000 ML IV SCH; -MIDAZOLAM 2 MG/2 ML VIAL IV PRN; +ONDANSETRON 4 MG/2 ML VIAL IVP ONE; +Pre Op ABX Message 1 EACH MISC MISCELLANE ONE; -SODIUM CHLORIDE 0.9% 1,000 ML IV SCH
[2019-10-20] MEDS: LACTATED RINGERS 1,000 ML IV SCH ×2 (08:08→11:43)
[2019-10-20] MEDS ORDERED: SCOPOLAMINE 1.5MG/72HR PATCH TRANSDERM ONE (08:16)
[2019-10-20] MEDS ORDERED: METOPROLOL SUCCINATE (ER) 25 MG TAB.ER.24H PO STA (08:17)
[2019-10-20] MEDS ORDERED: METOPROLOL TARTRATE 50 MG TAB PO ONE (08:31)
--- NOTE | 2019-10-20 08:32 | P.GSHP ---
History of Present Illness H&P Date: 10/20/19 Chief Complaint: Right quadrant pain Is a 29-year-old female with complaints of right quadrant pain. Her recent CAT scan shows evidence of calcified gallstones. She presents today for laparoscopic cholecystectomy Past Medical History Past Medical History: Asthma, Deep Vein Thrombosis (DVT), Liver Disease Additional Past Medical History / Comment(s): Cardiomyopathy; AICD., Chronic Liver disease from Hepatitis C; Neurofibromatosis, Mild Asthma (no rx)., SOB w/exertion, ?DVT in past., states having nausea & abd. pain. History of Any Multi-Drug Resistant Organisms: None Reported Past Surgical History: AICD, Cardiac Ablation, Cardiac Valve Replacement, Hysterectomy Additional Past Surgical History / Comment(s): Heart valve replacement in [place], Detached Retina surgery, left lung pneumothorax- after heart valve replacement. liver biopsy 2011. Defibrillator, 2018 -[employer] Past Anesthesia/Blood Transfusion Reactions: No Reported Reaction, Motion Sickness Type of Cardiac Device: AICD Device Placement Date:: 01-11-18 Past Psychological History: Anxiety, Depression Smoking Status: Current some day smoker Past Alcohol Use History: None Reported Additional Past Alcohol Use History / Comment(s): states trying to quit smoking and is vaping now., started smoking age 20, smoked off and on. smokes a cig/most days. Past Drug Use History: None Reported - Past Family History Mother Family Medical History: No Reported History Medications and Allergies Home Medications Medication Instructions Recorded Confirmed Type Furosemide [Lasix] 20 mg PO DAILY 01/06/18 10/20/19 History Spironolactone [Aldactone] 25 mg PO BID 01/06/18 10/20/19 History Entresto (Unknown Dose) 1 tab PO BID 10/19/19 10/20/19 History Gabapentin 600 mg PO TID 10/19/19 10/20/19 History Metoprolol Succinate [Toprol XL] 75 mg PO DAILY 10/19/19 10/20/19 History Multivit with Calcium,Iron,Min 1 each PO DAILY 10/19/19 10/20/19 History [Women's Multivitamin] Omeprazole [PriLOSEC] 40 mg PO DAILY 10/19/19 10/20/19 History Potassium (Unknown Dose) 1 tab PO DAILY 10/19/19 10/20/19 History Allergies Allergy/AdvReac Type Severity Reaction Status Date / Time Latex, Natural Rubber Allergy Rash/Hives Verified 10/20/19 08:03 peas Allergy Rash/Hives Verified 10/20/19 08:03 guaifenesin [From Robitussin] AdvReac Nausea & Verified 10/20/19 08:03 Vomiting Surgical - Exam Vital Signs Temp Pulse Resp BP Pulse Ox 98.2 F 68 18 110/70 100 10/20/19 07:59 10/20/19 07:59 10/20/19 07:59 10/20/19 07:59 10/20/19 07:59 - General well developed, well nourished, no distress - Eyes PERRL - ENT normal pinna - Neck no masses - Respiratory normal expansion - Cardiovascular Rhythm: regular - Abdomen Abdomen: soft, non tender Assessment and Plan Assessment: Cholelithiasis Chronic cholecystitis We'll perform laparoscopic cholecystectomy.
[2019-10-20] MEDS ORDERED: fentaNYL (PF) 50 MCG/ML 2 ML AMP ONE ×2 (08:47)
[2019-10-20] MEDS ORDERED: LIDOCAINE 1% INJ 10MG/ML (20 ML MDV) ONE (08:47)
[2019-10-20] MEDS ORDERED: ROCURONIUM BROMIDE 10 MG/ML 5 ML VIAL IV ONE (08:47)
[2019-10-20] MEDS ORDERED: MIDAZOLAM 2 MG/2 ML VIAL ONE ×2 (08:47)
[2019-10-20] MEDS ORDERED: SUCCINYLCHOLINE CHLORIDE 100 MG/5 ML SYR IV ONE (08:47)
[2019-10-20] MEDS ORDERED: KETOROLAC 30 MG/ML 1 ML VIAL ONE (08:47)
[2019-10-20] MEDS ORDERED: NEOSTIGMINE 1 MG/ML 10 ML VIAL ONE (08:47)
[2019-10-20] MEDS ORDERED: GLYCOPYRROLATE 0.2 MG/ML 2 ML VIAL ONE (08:47)
[2019-10-20] MEDS ORDERED: ETOMIDATE 2 MG/ML 10 ML VIAL ONE (08:47)
[2019-10-20] MEDS ORDERED: LIDOCAINE 1%-EPI 1:100,000 20 ML VIAL SQ ONE (09:08)
--- NOTE | 2019-10-20 09:36 | P.OP ---
Date of Procedure: 10/20/19 Preoperative Diagnosis: Cholecystitis Cholelithiasis Postoperative Diagnosis: Cholestasis Cholelithiasis Procedure(s) Performed: Laparoscopic cholecystectomy Anesthesia: CHARLES Surgeon: Ridge Yañez Estimated Blood Loss (ml): 5 Pathology: other (Gallbladder) Condition: stable Disposition: PACU Description of Procedure: The patient was placed on the operating table. The patient received a general endotracheal tube anesthesia. The patients abdomen was prepped and draped in the usual sterile fashion. Through an infraumbilical stab incision, the fascia of the anterior abdominal wall was grasped with a pair of Kochers and then the Veress needle was placed in the peritoneal cavity. Position of the Veress needle was confirmed with positive drop test. The abdomen was then insufflated. After adequate insufflation, the 10 mm trocar was placed in the peritoneal cavity. Following this the laparoscope was placed in the peritoneal cavity. The patient was placed in the head-up, right side up position and then a 5 mm trocar was placed in the right lateral and right subcostal position under direct visualization. A 8 mm trocar was placed in the epigastric position. The gallbladder was grasped in the fundus and infundibulum. Traction on the gallbladder was placed in the lateral and the cephalad positions. The triangle of Calot was visualized.. The cystic duct was bluntly dissected until the union of the cystic duct and common bile duct was seen. A critical view of safety was achieved. The cystic duct was then divided and sealed with the Harmonic scissors. A PDS Endoloop was then placed throughout the cystic duct stump. The cystic artery divided and sealed with the Harmonic scissors. The gallbladder was then removed from the liver bed using Harmonic scissors. The gallbladder was then extracted through the epigastric port site. Operative field was checked for any bleeding spots and Harmonic scissors was used to coagulate the liver bed. The abdomen was irrigated. The trocars were removed. The skin was closed using interrupted 3-0 Vicryl suture. Dermabond dressing were applied. The patient tolerated the procedure well.
[2019-10-20 09:37] VITALS: TEMP 97.9
[2019-10-20 10:17] VITALS: RESP 16
[2019-10-20 12:08] VITALS: BP 123/79; PULSE 65
== END 2019-10-20 13:22 | disposition home or self-care (01) ==
LOC: OR 07:21
PROVIDERS: ATTEND Surgery
DX: K80.10 Calculus of gallbladder with chronic cholecystitis without obstruction (principal); I42.9 Cardiomyopathy, unspecified; F41.9 Anxiety disorder, unspecified; F32.9 Major depressive disorder, single episode, unspecified; J45.909 Unspecified asthma, uncomplicated; Q85.00 Neurofibromatosis, unspecified; B19.20 Unspecified viral hepatitis C without hepatic coma; F17.290 Nicotine dependence, other tobacco product, uncomplicated; Z79.899 Other long term (current) drug therapy; Z95.2 Presence of prosthetic heart valve; Z95.810 Presence of automatic (implantable) cardiac defibrillator; Z91.040 Latex allergy status; Z86.718 Personal history of other venous thrombosis and embolism; Z90.710 Acquired absence of both cervix and uterus; Z91.018 Allergy to other foods
CPT/HCPCS: 88304; 47562; J2250; J1644; J1100; J2710; J0690; J2001; J3010; J1885; J0330

== ENCOUNTER 2019-11-25 09:05 | Observation (INO) | payer OTHER ==
[2019-11-25] MEDS ORDERED: SODIUM CHLORIDE 0.9% 1,000 ML IV STA (09:25)
--- NOTE | 2019-11-25 09:39 | ED ---
General Adult HPI - General Chief complaint: Shortness of Breath Stated complaint: lt arm pain/neck pain/sob Time Seen by Provider: 11/25/19 09:16 Source: patient, RN notes reviewed, old records reviewed Mode of arrival: wheelchair Limitations: no limitations - History of Present Illness Initial comments: Patient is a 29-year-old female history of cardiomyopathy and mitral valve replacement by Dr. Keating and had a better placement who presents emergency Department today with complaints of left arm pain with range of motion as well as complaints of pain in the chest and shortness of breath starting few hours prior to arrival. She reports that she awoke this morning to the left arm pain. Patient reports that she was previously on warfarin but reports that she was told to discontinue this and states that she does not take any blood thinners at this time. Patient also reports that she had a history of cholecystectomy performed [address] Townsend and that has been healing well. She denies any recent nausea or vomiting. She reports that the pain radiates towards her neck. - Related Data Home Medications Medication Instructions Recorded Confirmed Furosemide [Lasix] 20 mg PO DAILY 01/06/18 11/25/19 Spironolactone [Aldactone] 25 mg PO BID 01/06/18 11/25/19 Gabapentin 600 mg PO TID 10/19/19 11/25/19 Metoprolol Succinate [Toprol XL] 75 mg PO DAILY 10/19/19 11/25/19 Multivit with Calcium,Iron,Min 1 tab PO DAILY 10/19/19 11/25/19 [Women's Multivitamin] Omeprazole [PriLOSEC] 40 mg PO DAILY 10/19/19 11/25/19 Cetirizine HCl [Zyrtec] 10 mg PO DAILY PRN 11/25/19 11/25/19 Ergocalciferol [Vitamin D2] 50,000 unit PO SA 11/25/19 11/25/19 Potassium Chloride [Klor-Con 10] 10 meq PO DAILY 11/25/19 11/25/19 Sacubitril/Valsartan [Entresto 24 1 tab PO BID 11/25/19 11/25/19 mg-26 mg Tablet] Allergies Allergy/AdvReac Type Severity Reaction Status Date / Time Latex, Natural Rubber Allergy Rash/Hives Verified 11/25/19 09:10 peas Allergy Rash/Hives Verified 11/25/19 09:10 guaifenesin [From Robitussin] AdvReac Nausea & Verified 11/25/19 09:10 Vomiting Review of Systems ROS Statement: Those systems with pertinent positive or pertinent negative responses have been documented in the HPI. ROS Other: All systems not noted in ROS Statement are negative. Past Medical History Past Medical History: Asthma, Deep Vein Thrombosis (DVT), Liver Disease Additional Past Medical History / Comment(s): Cardiomyopathy; Hepatitis C; Neurofibromatosis, asthma as a child, SOB w/exertion, ?DVT several years ago, "inflammed gallbladder" per pt., nausea, abd. pain, 16%EF per pt. History of Any Multi-Drug Resistant Organisms: None Reported Past Surgical History: AICD Additional Past Surgical History / Comment(s): Heart valve replacement in [place], Detached Retina surgery, left lung pneumothorax- after heart valve replacement. liver biopsy 2012. Defibrillator, 2019 Past Anesthesia/Blood Transfusion Reactions: No Reported Reaction Type of Cardiac Device: AICD Device Placement Date:: 01-11-18 Past Psychological History: Anxiety Smoking Status: Current some day smoker Past Alcohol Use History: None Reported Past Drug Use History: None Reported - Past Family History Mother Family Medical History: No Reported History General Exam - General Exam Comments Initial Comments: 29-year-old female. Alert and oriented 3. Patient appears in no significant distress. Limitations: no limitations General appearance: alert, in no apparent distress Head exam: Present: atraumatic, normocephalic, normal inspection Eye exam: Present: normal appearance, PERRL, EOMI. Absent: scleral icterus, conjunctival injection, periorbital swelling ENT exam: Present: normal exam Neck exam: Present: normal inspection. Absent: tenderness, meningismus, lymphadenopathy Respiratory exam: Present: normal lung sounds bilaterally, other (Chest tenderness over the left arm with range of motion of shoulder and left chest wall.). Absent: respiratory distress, wheezes, rales, rhonchi, stridor Cardiovascular Exam: Present: regular rate, normal rhythm, normal heart sounds. Absent: systolic murmur, diastolic murmur, rubs, gallop, clicks GI/Abdominal exam: Present: soft, normal bowel sounds. Absent: distended, tenderness, guarding, rebound, rigid Back exam: Present: normal inspection Neurological exam: Present: alert, oriented X3, CN II-XII intact Psychiatric exam: Present: normal affect, normal mood Skin exam: Present: warm, dry, intact, normal color. 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 Prolonged QT. Ventricular rate of 93 beats were minute. Interval is 170 ms. QRS duration is 94 ms. QT QTc is 404/502 ms. Medical Decision Making - Medical Decision Making 29-year-old female presents emergency department today with concern for chest pain and shortness of breath starting this morning. Patient had full evaluation and negative d-dimer negative troponin. She does have extensive cardiac history with the fibular placement as well as mitral valve replacement with a history of cardiac cardiomyopathy. She's not had a recent echo a few years. Patient reports that she did have a near syncopal episode yesterday while at work. On reevaluation she is a portable lab results. She continues to complain of some chest discomfort. Her lungs are clear with no significant wheezing. I discussed case with Dr. Jamison. With concern for nursing of soda no recent echo discussed admission will complete the echo today. Patient is agreeable to this plan. - Lab Data Result diagrams: 11/25/19 09:43 11/25/19 09:43 Lab Results 11/25/19 11/25/19 11/25/19 Range/Units 09:38 09:43 09:43 WBC 4.8 (3.8-10.6) k/uL RBC 4.25 (3.80-5.40) m/uL Hgb 12.8 (11.4-16.0) gm/dL Hct 38.0 (34.0-46.0) % MCV 89.5 (80.0-100.0) fL MCH 30.2 (25.0-35.0) pg MCHC 33.7 (31.0-37.0) g/dL RDW 13.8 (11.5-15.5) % Plt Count 137 L (150-450) k/uL Neutrophils % 63 % Lymphocytes % 24 % Monocytes % 8 % Eosinophils % 2 % Basophils % 0 % Neutrophils # 3.1 (1.3-7.7) k/uL Lymphocytes # 1.2 (1.0-4.8) k/uL Monocytes # 0.4 (0-1.0) k/uL Eosinophils # 0.1 (0-0.7) k/uL Basophils # 0.0 (0-0.2) k/uL Manual Slide Review Performed Large Platelets Present RBC Morphology Normal PT 9.7 (9.0-12.0) sec INR 0.9 (<1.2) APTT 22.7 (22.0-30.0) sec D-Dimer 0.35 (<0.60) mg/L FEU Sodium (137-145) mmol/L Potassium (3.5-5.1) mmol/L Chloride (98-107) mmol/L Carbon Dioxide (22-30) mmol/L Anion Gap mmol/L BUN (7-17) mg/dL Creatinine (0.52-1.04) mg/dL Est GFR (CKD-EPI)AfAm (>60 ml/min/1.73 sqM) Est GFR (CKD-EPI)NonAf (>60 ml/min/1.73 sqM) Glucose (74-99) mg/dL Calcium (8.4-10.2) mg/dL Magnesium (1.6-2.3) mg/dL Total Bilirubin (0.2-1.3) mg/dL AST (14-36) U/L ALT (4-34) U/L Alkaline Phosphatase (38-126) U/L Troponin I (0.000-0.034) ng/mL NT-Pro-B Natriuret Pep 171 pg/mL Total Protein (6.3-8.2) g/dL Albumin (3.5-5.0) g/dL Amylase (30-110) U/L Lipase (23-300) U/L 11/25/19 11/25/19 Range/Units 09:43 09:43 WBC (3.8-10.6) k/uL RBC (3.80-5.40) m/uL Hgb (11.4-16.0) gm/dL Hct (34.0-46.0) % MCV (80.0-100.0) fL MCH (25.0-35.0) pg MCHC (31.0-37.0) g/dL RDW (11.5-15.5) % Plt Count (150-450) k/uL Neutrophils % % Lymphocytes % % Monocytes % % Eosinophils % % Basophils % % Neutrophils # (1.3-7.7) k/uL Lymphocytes # (1.0-4.8) k/uL Monocytes # (0-1.0) k/uL Eosinophils # (0-0.7) k/uL Basophils # (0-0.2) k/uL Manual Slide Review Large Platelets RBC Morphology PT (9.0-12.0) sec INR (<1.2) APTT (22.0-30.0) sec D-Dimer (<0.60) mg/L FEU Sodium 137 (137-145) mmol/L Potassium 4.2 (3.5-5.1) mmol/L Chloride 106 (98-107) mmol/L Carbon Dioxide 26 (22-30) mmol/L Anion Gap 5 mmol/L BUN 6 L (7-17) mg/dL Creatinine 0.62 (0.52-1.04) mg/dL Est GFR (CKD-EPI)AfAm >90 (>60 ml/min/1.73 sqM) Est GFR (CKD-EPI)NonAf >90 (>60 ml/min/1.73 sqM) Glucose 92 (74-99) mg/dL Calcium 9.1 (8.4-10.2) mg/dL Magnesium 2.0 (1.6-2.3) mg/dL Total Bilirubin 1.0 (0.2-1.3) mg/dL AST 20 (14-36) U/L ALT 13 (4-34) U/L Alkaline Phosphatase 51 (38-126) U/L Troponin I <0.012 (0.000-0.034) ng/mL NT-Pro-B Natriuret Pep pg/mL Total Protein 7.2 (6.3-8.2) g/dL Albumin 4.5 (3.5-5.0) g/dL Amylase 46 (30-110) U/L Lipase 224 (23-300) U/L Disposition Clinical Impression: Chest pain, Hx of mitral valve replacement Disposition: ADMITTED IP TO THIS HOSP Condition: Stable Is patient prescribed a controlled substance at d/c from ED?: No Referrals: Cristiano Hsu MD [Primary Care Provider] - 1-2 days Time of Disposition: 12:18
--- NOTE | 2019-11-25 10:01 | XR ---
EXAMINATION TYPE: XR chest 2V DATE OF EXAM: 11/25/2019 COMPARISON: 09/25/2019 TECHNIQUE: PA and lateral views submitted. HISTORY: Chest pain FINDINGS: The lungs are clear and there is no pneumothorax, pleural effusion, or focal pneumonia. Postoperati ve change and cardiac device. No overt failure. IMPRESSION: 1. No acute process.
[2019-11-25 10:13] LABS: Basophils % (A) 0 %; Eosinophils # (A) 0.1 k/uL (0-0.7); Eosinophils % (A) 2 %; HGB 12.8 gm/dL (11.4-16.0); Lymphocytes # (A) 1.2 k/uL (1.0-4.8); Lymphocytes % (A) 24 %; MCH 30.2 pg (25.0-35.0); MCHC 33.7 g/dL (31.0-37.0); MCV 89.5 fL (80.0-100.0); Mean Platelet Volume 11.5; Monocytes # (A) 0.4 k/uL (0-1.0); Monocytes % (A) 8 %; Neutrophils # (A) 3.1 k/uL (1.3-7.7); Neutrophils % (A) 63 %; RBC 4.25 m/uL (3.80-5.40); RDW 13.8 % (11.5-15.5); WBC 4.8 k/uL (3.8-10.6)
[2019-11-25 10:17] LABS: ALT 13 U/L (4-34); AST 20 U/L (14-36); African American GFR (CKD) >90 (>60 ml/min/1.73 sqM); Albumin 4.5 g/dL (3.5-5.0); Alkaline Phosphatase 51 U/L (38-126); Amylase 46 U/L (30-110); Anion Gap 5 mmol/L; Blood Urea Nitrogen 6 mg/dL (7-17); Calcium 9.1 mg/dL (8.4-10.2); Carbon Dioxide 26 mmol/L (22-30); Chloride 106 mmol/L (98-107); Glucose 92 mg/dL (74-99); Non-African American GFR(CKD) >90 (>60 ml/min/1.73 sqM); Potassium 4.2 mmol/L (3.5-5.1); Sodium 137 mmol/L (137-145); Total Protein 7.2 g/dL (6.3-8.2)
[2019-11-25 10:22] LABS: D-Dimer 0.35 mg/L FEU (<0.60); INR 0.9 (<1.2); Partial Thromboplastin Time 22.7 sec (22.0-30.0); Prothrombin Time 9.7 sec (9.0-12.0)
[2019-11-25 10:33] LABS: Platelet Count 137 k/uL (150-450)
[2019-11-25 10:34] LABS: Large Platelets Present
[2019-11-25] MEDS ORDERED: ORPHENADRINE 30 MG/ML 2 ML VIAL IVP STA (11:05)
[2019-11-25] MEDS ORDERED: KETOROLAC 30 MG/ML 1 ML VIAL IVP STA (11:05)
[2019-11-25] MEDS ORDERED: ONDANSETRON 4 MG/2 ML VIAL IVP PRN (12:19)
[2019-11-25] MEDS ORDERED: IBUPROFEN 400 MG TAB PO PRN (12:19)
[2019-11-25] MEDS ORDERED: NALOXONE 0.4 MG/ML 1 ML VIAL IV PRN (12:19)
[2019-11-25] MEDS ORDERED: ACETAMINOPHEN TAB 325 MG TAB PO PRN (12:19)
[2019-11-25] MEDS ORDERED: oxyCODONE-APAP 5-325MG 1 EACH TAB PO PRN (12:19)
[2019-11-25] MEDS ORDERED: SODIUM CHLORIDE 0.9% 1,000 ML IV SCH (12:30)
[2019-11-25] MEDS ORDERED: LORATADINE 10 MG TAB PO PRN (13:01)
--- NOTE | 2019-11-25 14:10 | P.CRDCN ---
History of Present Illness History of present illness: HISTORY OF PRESENTING ILLNESS This is a pleasant 29-year-old female past medical history significant for valvular heart disease status post tissue mitral valve replacement in [place] in 2017, nonischemic cardiomyopathy status post single-chamber [employer] AICD 2018, SVT status post ablation 2018, hypertension, chronic systolic heart failure, chronic nicotine dependence and asthma. She follows in the office with Dr. Keating. We have been asked to see in consultation for chest pain. She states that she was woken up this morning by a significant sharp shooting pain in the left lower arm and hand. The pain in her arm is exacerbated by movement or lifting her arm above her head. When she lifts the arm she feels a shooting sensation in the left shoulder and in the left precordial region. The discomfort in her chest is exacerbated by deep inspiration and is significantly reproducible on palpation. She denies shortness of breath, dizziness, nausea, vomiting, palpitations or diaphoresis. 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 She underwent cardiac catheterization in [place] in 2016 revealing no significant coronary artery disease with severely impaired LV systolic function. Most recent echocardiogram obtained in the office 2018 reveals severely decreased LV systolic function with ejection fraction 25-30%, severely dilated left atrium, mitral valve prosthetic valve leaflets mildly thickened with no prosthetic valvular regurgitation, mean gradient of 5 mmHg. DIAGNOSTICS EKG reveals sinus mechanism heart rate of 93 with lateral T-wave abnormalities, consistent with previous EKGs. No acute ischemic changes noted. Chest xray negative for any acute cardiopulmonary process. Laboratory reviewed, WBC 4.8, hemoglobin 12.8, platelets 137, d-dimer 0.35, sodium 137, potassium 4.2, creatinine 0.62, magnesium 2.0, cardiac enzymes negative 1, and T proBNP 171. Current cardiac medications include Lasix 20 mg daily, Toprol 75 mg daily, Aldactone 25 mg twice a day and entresto 24/26 mg BID. REVIEW OF SYSTEMS At the time of my exam: CONSTITUTIONAL: Denies fever or chills. CARDIOVASCULAR: Complains of pleurtic chest pain. Denies shortness of breath, orthopnea, PND or palpitations. RESPIRATORY: Denies cough. GASTROINTESTINAL: Denies abdominal pain, diarrhea, constipation, nausea or vomiting. MUSCULOSKELETAL: Denies myalgias. NEUROLOGIC: Complains of tingling and sharp pain down the left arm. Denies numbness or weakness. ENDOCRINE: Denies fatigue, weight change, polydipsia or polyurina. GENITOURINARY: Denies burning, hematuria or urgency with micturation. HEMATOLOGIC: Denies history of anemia or bleeding. PHYSICAL EXAMINATION Blood pressure 134/91 heart rate 74 afebrile and maintaining oxygen saturation on room air. CONSTITUTIONAL: No apparent distress. HEENT: Head is normocephalic. Pupils are equal, round. Sclerae anicteric. Mucous membranes of the mouth are moist. No JVD. No carotid bruit. CHEST EXAMINATION: Lungs are clear to auscultation. No chest wall tenderness is noted on palpation or with deep breathing. HEART EXAMINATION: Regular rate and rhythm. S1, S2 heard. No murmurs, gallops or rub. ABDOMEN: Soft, nontender. Positive bowel sounds. EXTREMITIES: 2+ peripheral pulses, no lower extremity edema and no calf tenderness. NEUROLOGIC EXAMINATION: Patient is awake, alert and oriented x3. ASSESSMENT Chest pain, reproducible and respirophasic. D-dimer negative. Left arm and hand tingling Valvular heart disease status post prosthetic mitral valve replacement 2017 Nonischemic cardiomyopathy status post AICD 2018 Chronic systolic heart failure, clinically euvolemic Hypertension History of SVT status post ablation Asthma Chronic nicotine dependence PLAN Pain is atypical for angina and unlikely to be related to coronary artery disease. She had a normal cardiac catheterization performed in 2016. Echocardiogram been ordered and will be reviewed. Continue to obtain serial cardiac enzymes to rule out an acute event. Check x-ray of the C-spine. Continue cardiac medications as previously ordered. Smoking cessation recommended. Thank you kindly for this consultation. Nurse Practitioner note has been reviewed, I agree with a documented findings and plan of care. Patient was seen and examined. Past Medical History Past Medical History: Asthma, Deep Vein Thrombosis (DVT), Liver Disease Additional Past Medical History / Comment(s): Cardiomyopathy; Hepatitis C; Neurofibromatosis, asthma as a child, SOB w/exertion, ?DVT several years ago, "inflammed gallbladder" per pt., nausea, abd. pain, 16%EF per pt. History of Any Multi-Drug Resistant Organisms: None Reported Past Surgical History: AICD Additional Past Surgical History / Comment(s): Heart valve replacement in [place], Detached Retina surgery, left lung pneumothorax- after heart valve replacement. liver biopsy 2011. Defibrillator, 2019 Past Anesthesia/Blood Transfusion Reactions: No Reported Reaction Type of Cardiac Device: AICD Device Placement Date:: 01-11-18 Past Psychological History: Anxiety Smoking Status: Current some day smoker Past Alcohol Use History: None Reported Past Drug Use History: None Reported - Past Family History Mother Family Medical History: No Reported History Medications and Allergies Home Medications Medication Instructions Recorded Confirmed Type Furosemide [Lasix] 20 mg PO DAILY 01/06/18 11/25/19 History Spironolactone [Aldactone] 25 mg PO BID 01/06/18 11/25/19 History Gabapentin 600 mg PO TID 10/19/19 11/25/19 History Metoprolol Succinate [Toprol XL] 75 mg PO DAILY 10/19/19 11/25/19 History Multivit with Calcium,Iron,Min 1 tab PO DAILY 10/19/19 11/25/19 History [Women's Multivitamin] Omeprazole [PriLOSEC] 40 mg PO DAILY 10/19/19 11/25/19 History Cetirizine HCl [Zyrtec] 10 mg PO DAILY PRN 11/25/19 11/25/19 History Ergocalciferol [Vitamin D2] 50,000 unit PO SA 11/25/19 11/25/19 History Potassium Chloride [Klor-Con 10] 10 meq PO DAILY 11/25/19 11/25/19 History Sacubitril/Valsartan [Entresto 24 1 tab PO BID 11/25/19 11/25/19 History mg-26 mg Tablet] Allergies Allergy/AdvReac Type Severity Reaction Status Date / Time Latex, Natural Rubber Allergy Rash/Hives Verified 11/25/19 09:10 peas Allergy Rash/Hives Verified 11/25/19 09:10 guaifenesin [From Robitussin] AdvReac Nausea & Verified 11/25/19 09:10 Vomiting Physical Exam Vitals: Vital Signs Temp Pulse Pulse Resp BP BP Pulse Ox 11/25/19 13:26 98.4 F 74 14 134/91 100 11/25/19 12:00 98.6 F 85 16 137/78 98 11/25/19 11:21 81 16 145/100 99 11/25/19 09:41 92 18 142/92 100 11/25/19 09:33 89 11/25/19 09:08 98.1 F 98 18 145/100 98 Intake and Output 11/24/19 11/25/19 11/25/19 22:59 06:59 14:59 Other: Voiding Method Toilet # Voids 1 Weight 56.245 kg Results 11/25/19 09:43 11/25/19 09:43 Cardiac Enzymes 11/25/19 11/25/19 Range/Units 09:43 09:43 AST 20 (14-36) U/L Troponin I <0.012 (0.000-0.034) ng/mL Coagulation 11/25/19 Range/Units 09:43 PT 9.7 (9.0-12.0) sec APTT 22.7 (22.0-30.0) sec CBC 11/25/19 Range/Units 09:43 WBC 4.8 (3.8-10.6) k/uL RBC 4.25 (3.80-5.40) m/uL Hgb 12.8 (11.4-16.0) gm/dL Hct 38.0 (34.0-46.0) % Plt Count 137 L (150-450) k/uL Comprehensive Metabolic Panel 11/25/19 Range/Units 09:43 Sodium 137 (137-145) mmol/L Potassium 4.2 (3.5-5.1) mmol/L Chloride 106 (98-107) mmol/L Carbon Dioxide 26 (22-30) mmol/L BUN 6 L (7-17) mg/dL Creatinine 0.62 (0.52-1.04) mg/dL Glucose 92 (74-99) mg/dL Calcium 9.1 (8.4-10.2) mg/dL AST 20 (14-36) U/L ALT 13 (4-34) U/L Alkaline Phosphatase 51 (38-126) U/L Total Protein 7.2 (6.3-8.2) g/dL Albumin 4.5 (3.5-5.0) g/dL Current Medications Generic Name Dose Route Start Last Admin Trade Name Freq PRN Reason Stop Dose Admin Acetaminophen 650 mg 11/25/19 12:19 Tylenol Tab PO Q6HR PRN Mild Pain or Fever > 100.5 Furosemide 20 mg 11/26/19 09:00 Lasix PO DAILY ALEX Gabapentin 600 mg 11/25/19 16:00 Neurontin PO TID ALEX Sodium Chloride 1,000 mls @ 100 mls/hr 11/25/19 12:30 11/25/19 13:00 Saline 0.9% IV 100 mls/hr .Q10H ALEX Administration Ibuprofen 400 mg 11/25/19 12:19 Motrin PO Q6HR PRN Mild Pain or Fever > 100.5 Loratadine 10 mg 11/25/19 13:01 Claritin PO DAILY PRN Allergy Symptoms Metoprolol Succinate 75 mg 11/26/19 09:00 Toprol Xl PO DAILY ALEX Naloxone HCl 0.2 mg 11/25/19 12:19 Narcan IV Q2M PRN Opioid Reversal Ondansetron HCl 4 mg 11/25/19 12:19 Zofran IVP Q8HR PRN Nausea And Vomiting Oxycodone/Acetaminophen 1 each 11/25/19 12:19 Percocet 5-325 PO Q4HR PRN Severe Pain Pantoprazole Sodium 40 mg 11/26/19 09:00 Protonix IV DAILY [facility] Potassium Chloride 10 meq 11/26/19 09:00 K-Dur 10 PO DAILY [facility] Sacubitril/Valsartan 1 each 11/25/19 21:00 Entresto 24 Mg-26 Mg Tablet PO BID [facility] Spironolactone 25 mg 11/25/19 21:00 Aldactone PO BID [facility] Intake and Output 11/24/19 11/25/19 11/25/19 22:59 06:59 14:59 Other: Voiding Method Toilet # Voids 1 Weight 56.245 kg Patient Weight 11/26/19 06:59 Weight 56.245 kg 11/25/19 09:43 11/25/19 09:43
--- NOTE | 2019-11-25 15:08 | XR ---
EXAMINATION TYPE: XR cervical spine comp DATE OF EXAM: 11/25/2019 COMPARISON: NONE HISTORY: Pain TECHNIQUE: Four views are submitted. FINDINGS: The odontoid is intact. There are no compression deformities. The prevertebral soft tissue structur es are within normal limits. Postsurgical change involving the mediastinum. IMPRESSION: 1. No acute process. If symptoms persist correlate with MRI.
[2019-11-25] MEDS: GABAPENTIN 300 MG CAP PO SCH ×2 (16:18→22:35)
--- NOTE | 2019-11-25 18:00 | ECHOF ---
Referral Reason:syncope MEASUREMENTS -------- HEIGHT: 129.5 cm WEIGHT: 56.7 kg BP: IVSd: 1.4 cm (0.6 - 1.1) LVIDd: 5.0 cm (3.9 - 5.3) LVPWd: 1.7 cm (0.6 - 1.1) IVSs: 1.4 cm LVIDs: 4.7 cm LVPWs: 1.0 cm LA Diam: 5.0 cm (2.7 - 3.8) LAESV Index (A-L): 80.33 ml/m Ao Diam: 2.4 cm (2.0 - 3.7) AV Cusp: 1.8 cm (1.5 - 2.6) LA Diam: 4.5 cm (2.7 - 3.8) MV E Rashid: 1.27 m/s MV DecT: 220 ms MV A Rashid: 1.28 m/s MV E/A Ratio: 0.99 RAP: 5.00 mmHg RVSP: 27.22 mmHg FINDINGS -------- Sinus rhythm. Pacerwire seen in RV and RA. This was a technically adequate study. The left ventricular size is normal. There is mild concentric left ventricular hypertrophy. There is moderate global hypokinesis of LV . Overall left ventricular systolic function is moderately im paired with, an EF between 35 - 40 %. The right ventricle is normal in size. LA is severely dilated >40 ml/m2 The right atrial size is normal. The aortic valve is trileaflet, and appears structurally normal. No aortic stenosis or regurgitation. Mild mitral regurgitation is present. The peak and mean MV gradients are 13.14mmHg 4.87mmHg as rigo sured by doppler. Normally functioning bioprosthetic mitral valve. Mild tricuspid regurgitation present. Right ventricular systolic pressure is normal at < 35 mmHg. The pulmonic valve was not well visualized. The aortic root size is normal. There is no pericardial effusion. CONCLUSIONS -------- 1. Pacerwire seen in RV and RA. 2. There is mild concentric left ventricular hypertrophy. 3. There is moderate global hypokinesis of LV . 4. Overall left ventricular systolic function is moderately impaired with, an EF between 35 - 40 %. 5. LA is severely dilated >40 ml/m2 6. The aortic valve is trileaflet, and appears structurally normal. No aortic stenosis or regurgitati on. 7. Mild mitral regurgitation is present. 8. The peak and mean MV gradients are 13.14mmHg 4.87mmHg as measured by doppler. 9. Normally functioning bioprosthetic mitral valve. 10. Mild tricuspid regurgitation present. 11. There is no pericardial effusion. SENIOR BOOKKEEPER: Deloris Prasad RDCS
--- NOTE | 2019-11-25 20:00 | P.HPIM ---
History of Present Illness H&P Date: 11/25/19 Chief Complaint: Left upper chest pain History of presenting complaint: This is a pleasant 29-year-old patient of Dr. Hsu. Patient's chronic stable medical conditions include hepatitis C that was treated, cardiomyopathy with AICD and been followed by Dr. HOSSEIN Keating. Patient is to smoke a pack a day now down to smoking a few cigarettes a day. Patient does drink some alcohol on weekends. Patient now presents with pain below the left clavicle area sharp in nature present on and off. Pain does not radiate. Not related to activity. No exacerbating or relieving factors.. Appetite is fair bowels are good. No fever no chills. No shortness of breath. No cough Review of systems: GEN.: None EYES: None HEENT: None NECK: None RESPIRATORY: None CARDIOVASCULAR: As above GASTROINTESTINAL: None GENITOURINARY: None MUSCULOSKELETAL: None LYMPHATICS: None HEMATOLOGICAL: None PSYCHIATRY: None NEUROLOGICAL: None Past medical history to include: Asthma, DVT, cardiomyopathy, hepatitis C, neurofibromatosis, ejection fraction 15%, AICD heart valve replacement inside, anxiety. Social history: Was smoking up to a pack a day now down to occasional cigarettes. Has children at home. 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 Some alcohol on the weekends Physical examination: VITAL SIGNS: 98.1, 98, 18, 145/100, 98% room air GENERAL: BMI 25, 6 propped up in bed, comfortable]. EYES: Pupils equal. Conjunctiva normal. HEENT: External appearance of nose and ears normal, oral cavity grossly normal. NECK: JVD not raised; masses not palpable. HEART: First and second heart sounds are normal; no edema. LUNGS: Respiratory rate normal; clear to auscultation. ABDOMEN: Soft, nontender, liver spleen not palpable, no masses palpable. PSYCH: Alert and oriented x3; mood and affect normal. NEUROLOGICAL: Cranial nerves grossly intact; no facial asymmetry, power and sensation grossly intact. LYMPHATICS: No lymph nodes palpable in the axilla and neck INVESTIGATIONS, reviewed in the clinical context: White count 4.8 hemoglobin 12.8 platelets 137 potassium 4.2 creatinine 0.62 d- dimer 0.35 Troponin I 2 negative EKG tracing personally reviewed by me-normal sinus rhythm coronary progression flipped T waves in leads V2 to V6 Chest x-ray film personally reviewed by me-lung simpson clear AICD 2-D echocardiogram EF 35-40%, normal functioning bioprosthetic mitral valve, gl obal hypokinesis Assessment: -Left infraclavicular/anterior chest wall pain sharp intermittent. Patient is no fever or chills no cough. -Cardiomyopathy EF 50% -Intermittent asthma -Neurofibromatosis -AICD Plan: -Patient's presentation of atypical for a cardiac manifestation. But given the cardiac history will get a cardiac opinion. Home medications to be resumed. Care was discussed with the patient. Questions were answered. Past Medical History Past Medical History: Asthma, Deep Vein Thrombosis (DVT), Liver Disease Additional Past Medical History / Comment(s): Cardiomyopathy; Hepatitis C; Neurofibromatosis, asthma as a child, SOB w/exertion, ?DVT several years ago, "inflammed gallbladder" per pt., nausea, abd. pain, 16%EF per pt. History of Any Multi-Drug Resistant Organisms: None Reported Past Surgical History: AICD Additional Past Surgical History / Comment(s): Heart valve replacement in [place], Detached Retina surgery, left lung pneumothorax- after heart valve replacement. liver biopsy 2011. Defibrillator, 2019 Past Anesthesia/Blood Transfusion Reactions: No Reported Reaction Type of Cardiac Device: AICD Device Placement Date:: 01-11-18 Past Psychological History: Anxiety Smoking Status: Current some day smoker Past Alcohol Use History: None Reported Past Drug Use History: None Reported - Past Family History Mother Family Medical History: No Reported History Father Family Medical History: Skin Disorder Additional Family Medical History / Comment(s): neruofibromatosis 2 Medications and Allergies Home Medications Medication Instructions Recorded Confirmed Type Furosemide [Lasix] 20 mg PO DAILY 01/06/18 11/25/19 History Spironolactone [Aldactone] 25 mg PO BID 01/06/18 11/25/19 History Gabapentin 600 mg PO TID 10/19/19 11/25/19 History Metoprolol Succinate [Toprol XL] 75 mg PO DAILY 10/19/19 11/25/19 History Multivit with Calcium,Iron,Min 1 tab PO DAILY 10/19/19 11/25/19 History [Women's Multivitamin] Omeprazole [PriLOSEC] 40 mg PO DAILY 10/19/19 11/25/19 History Cetirizine HCl [Zyrtec] 10 mg PO DAILY PRN 11/25/19 11/25/19 History Ergocalciferol [Vitamin D2] 50,000 unit PO SA 11/25/19 11/25/19 History Potassium Chloride [Klor-Con 10] 10 meq PO DAILY 11/25/19 11/25/19 History Sacubitril/Valsartan [Entresto 24 1 tab PO BID 11/25/19 11/25/19 History mg-26 mg Tablet] Allergies Allergy/AdvReac Type Severity Reaction Status Date / Time Latex, Natural Rubber Allergy Rash/Hives Verified 11/25/19 09:10 peas Allergy Rash/Hives Verified 11/25/19 09:10 guaifenesin [From Robitussin] AdvReac Nausea & Verified 11/25/19 09:10 Vomiting Physical Exam Vitals: Vital Signs Temp Pulse Pulse Resp BP Pulse Ox 11/25/19 12:00 98.6 F 85 16 137/78 98 11/25/19 11:21 81 16 145/100 99 11/25/19 09:41 92 18 142/92 100 11/25/19 09:33 89 11/25/19 09:08 98.1 F 98 18 145/100 98 Intake and Output 11/24/19 11/25/19 11/25/19 22:59 06:59 14:59 Other: Weight 56.245 kg Results CBC & Chem 7: 11/25/19 09:43 11/25/19 09:43 Labs: Abnormal Lab Results - Last 24 Hours (Table) 11/25/19 11/25/19 Range/Units 09:43 09:43 Plt Count 137 L (150-450) k/uL BUN 6 L (7-17) mg/dL
[2019-11-25] MEDS: SPIRONOLACTONE 25 MG TAB PO SCH (22:35)
[2019-11-25] MEDS: SACUBITRIL/VALSARTAN 24 MG-26 MG TABLET PO SCH (23:05)
[2019-11-26 04:52] VITALS: PULSE 80
[2019-11-26] MEDS: SPIRONOLACTONE 25 MG TAB PO SCH (08:23)
[2019-11-26] MEDS: GABAPENTIN 300 MG CAP PO SCH (08:23)
[2019-11-26] MEDS: SACUBITRIL/VALSARTAN 24 MG-26 MG TABLET PO SCH (08:24)
[2019-11-26] MEDS ORDERED: POTASSIUM CHLORIDE ER 10 MEQ TAB.ER.PRT PO SCH (09:00)
[2019-11-26] MEDS ORDERED: PANTOPRAZOLE 40 MG/10 ML VIAL IV SCH (09:00)
[2019-11-26] MEDS ORDERED: FUROSEMIDE 20 MG TAB PO SCH (09:00)
[2019-11-26] MEDS ORDERED: NON FORMULARY DRUG (Omeprazole 40 MG) PO SCH (09:00)
[2019-11-26] MEDS ORDERED: METOPROLOL SUCCINATE (ER) 25 MG TAB.ER.24H PO SCH (09:00)
--- NOTE | 2019-11-26 10:20 | PN ---
PROGRESS NOTE Tia is a 29-year-old lady with extensive cardiac history including dilated cardiomyopathy, chronic systolic heart failure status post AICD who presented to hospital with chest pain yesterday. She ruled out for myocardial infarction. Her chest discomfort was thought to be atypical. An echocardiogram on her, revealed moderate LV systolic dysfunction with an ejection fraction of 35-40 percent. This morning, patient appears comfortable at rest, free of chest pain. On exam, vital signs are stable. There is no jugular venous distention. Chest exam reveals good air entry bilaterally. Heart exam reveals first and second heart sounds. Systolic murmur at the apex. Abdomen is soft. Exam of extremities did not reveal any edema. Peripheral pulses are felt. Labs show that the hemoglobin is 12.8, potassium is 4.2. Creatinine is 0.6. Coronavirus is negative. ASSESSMENT: 1. Atypical chest pain. 2. History of mitral valve replacement. 3. Dilated cardiomyopathy with severe LV dysfunction, status post AICD. PLAN: The patient is stable for discharge. Outpatient followup with Dr. 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 MMODL / IJN: [id number] /
[2019-11-26 10:28] VITALS: RESP 16
[2019-11-26 11:39] VITALS: BP 120/79; TEMP 97.9
--- NOTE | 2019-11-26 23:19 | P.DS ---
Providers Date of admission: 11/25/19 12:02 Expected date of discharge: 11/26/19 Attending physician: Clement Bliss Consults: 11/25/19 12:20 Consult Physician Stat Consulting Provider: Vernon Keating Consult Reason/Comments: chest pain, mitral valve replacement Do you want consulting provider notified?: Yes Primary care physician: Cristiano Hsu [place] [facility] Course: Chief Complaint: Left upper chest pain History of presenting complaint: This is a pleasant 29-year-old patient of Dr. Hsu. Patient's chronic stable medical conditions include hepatitis C that was treated, cardiomyopathy with AICD and been followed by Dr. HOSSEIN Keating. Patient is to smoke a pack a day now down to smoking a few cigarettes a day. Patient does drink some alcohol on weekends. Patient now presents with pain below the left clavicle area sharp in nature present on and off. Pain does not radiate. Not related to activity. No exacerbating or relieving factors.. Appetite is fair. bowels are good. No fever no chills. No shortness of breath. No cough Patient was seen by cardiology. [place] to be noncardiac. Cleared for discharge. Patient to follow with Dr. 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 Consultation: Dr. Ervin Chaney from cardiology Physical examination: VITAL SIGNS: 97.9, 80, 16, 120/79, 98% room air GENERAL: Laying in bed, comfortable]. EYES: Pupils equal. Conjunctiva normal. HEENT: External appearance of nose and ears normal, oral cavity grossly normal. NECK: JVD not raised; masses not palpable. HEART: First and second heart sounds are normal; no edema. LUNGS: Respiratory rate normal; clear to auscultation. ABDOMEN: Soft, nontender, liver spleen not palpable, no masses palpable. PSYCH: Alert and oriented x3; mood and affect normal. INVESTIGATIONS, reviewed in the clinical context: White count 4.8 hemoglobin 12.8 platelets 137 potassium 4.2 creatinine 0.62 d- dimer 0.35 Troponin I 3 negative EKG tracing personally reviewed by me-normal sinus rhythm coronary progression flipped T waves in leads V2 to V6 Chest x-ray film personally reviewed by me-lung simpson clear AICD 2-D echocardiogram EF 35-40%, normal functioning bioprosthetic mitral valve, global hypokinesis Assessment: -Left infraclavicular/anterior chest wall pain sharp intermittent. Patient is no fever or chills no cough. -Chronic congestive heart failure/nonischemic Cardiomyopathy EF 35-40% -Intermittent asthma -Neurofibromatosis -AICD Disposition: Home Patient Condition at Discharge: Stable Plan - Discharge Summary Discharge Rx Participant: No New Discharge Prescriptions: Continue Furosemide [Lasix] 20 mg PO DAILY Spironolactone [Aldactone] 25 mg PO BID Gabapentin 600 mg PO TID Omeprazole [PriLOSEC] 40 mg PO DAILY Metoprolol Succinate [Toprol XL] 75 mg PO DAILY Multivit with Calcium,Iron,Min [Women's Multivitamin] 1 tab PO DAILY Sacubitril/Valsartan [Entresto 24 mg-26 mg Tablet] 1 tab PO BID Ergocalciferol [Vitamin D2 (DRISDOL)] 50,000 unit PO SA Cetirizine HCl [Zyrtec] 10 mg PO DAILY PRN PRN Reason: Allergy Symptoms Potassium Chloride [Klor-Con 10] 10 meq PO DAILY Discharge Medication List Furosemide [Lasix] 20 mg PO DAILY 01/06/18 [History] Spironolactone [Aldactone] 25 mg PO BID 01/06/18 [History] Gabapentin 600 mg PO TID 10/19/19 [History] Metoprolol Succinate [Toprol XL] 75 mg PO DAILY 10/19/19 [History] Multivit with Calcium,Iron,Min [Women's Multivitamin] 1 tab PO DAILY 10/19/19 [History] Omeprazole [PriLOSEC] 40 mg PO DAILY 10/19/19 [History] Cetirizine HCl [Zyrtec] 10 mg PO DAILY PRN 11/25/19 [History] Ergocalciferol [Vitamin D2 (DRISDOL)] 50,000 unit PO SA 11/25/19 [History] Potassium Chloride [Klor-Con 10] 10 meq PO DAILY 11/25/19 [History] Sacubitril/Valsartan [Entresto 24 mg-26 mg Tablet] 1 tab PO BID 11/25/19 [History] Follow up Appointment(s)/Referral(s): Vernon Keating MD [STAFF PHYSICIAN] - 2 Weeks Cristiano Hsu MD [Primary Care Provider] - 1-2 days Patient Instructions/Handouts: Chest Pain (DC) Discharge/Stand Alone Forms: Work/Release Restrictions Form, Work/School Release / Restrict Discharge Disposition: HOME SELF-CARE
== END 2019-11-26 13:23 | disposition home or self-care (01) ==
LOC: EC 09:05 → 1SOBS 12:02
PROVIDERS: ADMIT Hospitalist; ATTEND Hospitalist
DX: R07.89 Other chest pain (principal); Z03.818 Encounter for observation for suspected exposure to other biological agents ruled out; I11.0 Hypertensive heart disease with heart failure; I42.0 Dilated cardiomyopathy; I50.22 Chronic systolic (congestive) heart failure; J45.20 Mild intermittent asthma, uncomplicated; B19.20 Unspecified viral hepatitis C without hepatic coma; F17.210 Nicotine dependence, cigarettes, uncomplicated; F41.9 Anxiety disorder, unspecified; Q85.00 Neurofibromatosis, unspecified; Z79.899 Other long term (current) drug therapy; Z87.09 Personal history of other diseases of the respiratory system; Z90.49 Acquired absence of other specified parts of digestive tract; Z95.2 Presence of prosthetic heart valve; Z95.810 Presence of automatic (implantable) cardiac defibrillator; Z88.8 Allergy status to other drugs, medicaments and biological substances; Z91.040 Latex allergy status; Z91.018 Allergy to other foods; K76.9 Liver disease, unspecified
CPT/HCPCS: 96361 ×3; 96375 ×2; 96374; 99285; 36415; 93005; 93306; 85379; 83880; 80053; 82150; 83690; 83735; 84484; 85025; 85610; 85730; 72050; 71046; G0378 ×2; U0003; J2360; J1885; C9113

== ENCOUNTER → 2019-12-27 | Outpatient (CLI) | payer OTHER | END | disposition home or self-care (01) | LOC: LABWHC1 14:27 | PROVIDERS: ATTEND Pediatrics | DX: Z20.828 Contact with and (suspected) exposure to other viral communicable diseases (principal) | CPT/HCPCS: U0003; C9803 ==

== ENCOUNTER 2020-04-07 10:28 | Observation (INO) | payer OTHER ==
[2020-04-07] MEDS ORDERED: ASPIRIN 81 MG PO STA (11:03)
[2020-04-07 12:00] LABS: Basophils % (A) 1 %; Eosinophils # (A) 0.1 k/uL (0-0.7); Eosinophils % (A) 2 %; HCT 40.9 % (34.0-46.0); HGB 13.4 gm/dL (11.4-16.0); Lymphocytes # (A) 0.9 k/uL (1.0-4.8); Lymphocytes % (A) 16 %; MCH 29.2 pg (25.0-35.0); MCHC 32.8 g/dL (31.0-37.0); MCV 89.2 fL (80.0-100.0); Mean Platelet Volume 11.5; Monocytes # (A) 0.3 k/uL (0-1.0); Monocytes % (A) 6 %; Neutrophils % (A) 73 %; Platelet Count 121 k/uL (150-450); RBC 4.59 m/uL (3.80-5.40); RDW 13.7 % (11.5-15.5); WBC 5.5 k/uL (3.8-10.6)
[2020-04-07 12:11] LABS: ALT 37 U/L (4-34); AST 71 U/L (14-36); African American GFR (CKD) >90 (>60 ml/min/1.73 sqM); Albumin 4.8 g/dL (3.5-5.0); Alkaline Phosphatase 75 U/L (38-126); Anion Gap 10 mmol/L; Blood Urea Nitrogen 9 mg/dL (7-17); Calcium 9.3 mg/dL (8.4-10.2); Carbon Dioxide 19 mmol/L (22-30); Chloride 107 mmol/L (98-107); Glucose 83 mg/dL (74-99); Lipase 837 U/L (23-300); Magnesium 2.1 mg/dL (1.6-2.3); Non-African American GFR(CKD) >90 (>60 ml/min/1.73 sqM); Potassium 4.4 mmol/L (3.5-5.1); Sodium 136 mmol/L (137-145); Total Protein 8.1 g/dL (6.3-8.2)
--- NOTE | 2020-04-07 12:21 | ED ---
Extremity Problem HPI - General Chief complaint: Extremity Problem,Nontraumatic Stated complaint: rt leg pain, hx bloodclots Time Seen by Provider: 04/07/20 10:55 Source: patient Mode of arrival: wheelchair Limitations: no limitations - History of Present Illness Initial comments: 30yo female wiht history of pericardial tissue mitral heart valve performed 05/2016 in [place] with defibrillator due to heart failure from cardiomyopathy, neurofibromatosis, pancreatitis presenting to the ER today for cc of right posterior knee bruising and swelling. States walking on the beach yesterday when she noticed discomfort and swelling to the posterior right knee swelling/bruising. Pt states she has history of blood clots and was concerned. Denies current anticoagulation therapy stating that she was taken off of them and does not know why. Denies bleeding/known clotting disorders. States she has had some lower chest discomfort on and off and just doesnt feel well. Admits to some occasional, cough. Leg swelling last week that resolved. Denies fevers. Patient denies IVDU, denies additional complaints. Patient is overall a poor historian and history provider/describing symptoms-vague. - Related Data Home Medications Medication Instructions Recorded Confirmed Gabapentin 600 mg PO TID 10/19/19 04/07/20 Cetirizine HCl [Zyrtec] 10 mg PO DAILY PRN 11/25/19 04/07/20 Ergocalciferol [Vitamin D2 50,000 unit PO Q7D 11/25/19 04/07/20 (DRISDOL)] Atomoxetine HCl [Strattera] 40 mg PO DAILY 04/07/20 04/07/20 Allergies Allergy/AdvReac Type Severity Reaction Status Date / Time Latex, Natural Rubber Allergy Rash/Hives Verified 04/07/20 10:52 peas Allergy Rash/Hives Verified 04/07/20 10:52 guaifenesin [From Robitussin] AdvReac Nausea & Verified 04/07/20 10:52 Vomiting Review of Systems ROS Statement: Those systems with pertinent positive or pertinent negative responses have been documented in the HPI. ROS Other: All systems not noted in ROS Statement are negative. Past Medical History Past Medical History: Asthma, Deep Vein Thrombosis (DVT), Liver Disease Additional Past Medical History / Comment(s): Cardiomyopathy; Neurofibromatosis, asthma as a child, SOB w/exertion, ?DVT several years ago, "inflammed gallbladder" per pt., nausea, abd. pain, 16%EF per pt. History of Any Multi-Drug Resistant Organisms: None Reported Past Surgical History: AICD, Cholecystectomy Additional Past Surgical History / Comment(s): Heart valve replacement in [place], Detached Retina surgery, left lung pneumothorax- after heart valve replacement. liver biopsy 2012. Defibrillator, 2019 Past Anesthesia/Blood Transfusion Reactions: No Reported Reaction Type of Cardiac Device: AICD Device Placement Date:: 01-11-18 Past Psychological History: Anxiety Smoking Status: Current every day smoker Past Alcohol Use History: None Reported Past Drug Use History: None Reported - Past Family History Mother Family Medical History: No Reported History Father Family Medical History: Skin Disorder Additional Family Medical History / Comment(s): neruofibromatosis 2 General Exam - General Exam Comments Initial Comments: General: The patient is awake and alert, in no distress Eye: +3 mm pupils are equal, round and reactive to light, extra-ocular movements are intact. No nystagmus. There is normal conjunctiva bilaterally. No signs of icterus. Ears, nose, mouth and throat: There are moist mucous membranes and no oral lesions. Neck: The neck is supple, there is no tenderness or JVD. Cardiovascular: There is a regular rate and rhythm. No murmur, rub or gallop is appreciated. Respiratory: Lungs are clear to auscultation, respirations are non-labored, breath sounds are equal. No wheezes, stridor, rales, or rhonchi. Gastrointestinal: Soft, non-distended, non-tender abdomen without masses or organomegaly noted. There is no rebound or guarding present. Musculoskeletal: Normal ROM, no tenderness. Strength 5/5. Sensation intact. Radial and DP pulses equal bilaterally 2+. Neurological: A&O x 3. CN II-XII intact grossly, There are no obvious motor or sensory deficits. Coordination appears grossly intact. Speech is normal. Skin: Skin is warm and dry and no rashes or lesions are noted. No splinter hemorrhages, or matt way lesions appreciated. ecchymotics, raised painful area of the posterior right popliteal region. no surrounding redness/warmth, not pulsatile. Psychiatric: Cooperative, appropriate mood & affect, normal judgment. Limitations: no limitations Course Vital Signs 11/21/20 11/21/20 10:48 11:51 Temperature 97.9 F Pulse Rate 91 Respiratory 18 18 Rate Blood Pressure 139/83 O2 Sat by Pulse 100 Oximetry Medical Decision Making - Medical Decision Making Labs stable. initialy trop (-). Ekg no acute changes. Patient case discussed with dr. epperson who reviewed US and he examined patient, unsure if this is vasular phenomenon vs hemorrhagic bakers cyst. there is no noted changes on US. Patient does admit to chest pain (2nd complaint). significant cardiac history of ACID/heart failure, valve replacement. pt will be admitted for cp r/o, cardiology consultation, vascular consulation for further evaluation of right leg mass. Dr. Epperson helped create and is agreeable to care plan. blood culture pending. pancreatic enzymes were elevated. will hydrate and repeat. - Lab Data Result diagrams: 04/07/20 11:42 04/07/20 11:42 Lab Results 04/07/20 04/07/20 04/07/20 Range/Units 11:42 11:42 11:42 WBC 5.5 (3.8-10.6) k/uL RBC 4.59 (3.80-5.40) m/uL Hgb 13.4 (11.4-16.0) gm/dL Hct 40.9 (34.0-46.0) % MCV 89.2 (80.0-100.0) fL MCH 29.2 (25.0-35.0) pg MCHC 32.8 (31.0-37.0) g/dL RDW 13.7 (11.5-15.5) % Plt Count 121 L (150-450) k/uL MPV 11.5 Neutrophils % 73 % Lymphocytes % 16 % Monocytes % 6 % Eosinophils % 2 % Basophils % 1 % Neutrophils # 4.0 (1.3-7.7) k/uL Lymphocytes # 0.9 L (1.0-4.8) k/uL Monocytes # 0.3 (0-1.0) k/uL Eosinophils # 0.1 (0-0.7) k/uL Basophils # 0.0 (0-0.2) k/uL Manual Slide Review Performed Large Platelets Present RBC Morphology Normal PT 10.1 (9.0-12.0) sec INR 1.0 (<1.2) APTT 23.4 (22.0-30.0) sec D-Dimer 0.40 (<0.60) mg/L FEU Sodium 136 L (137-145) mmol/L Potassium 4.4 (3.5-5.1) mmol/L Chloride 107 (98-107) mmol/L Carbon Dioxide 19 L (22-30) mmol/L Anion Gap 10 mmol/L BUN 9 (7-17) mg/dL Creatinine 0.56 (0.52-1.04) mg/dL Est GFR (CKD-EPI)AfAm >90 (>60 ml/min/1.73 sqM) Est GFR (CKD-EPI)NonAf >90 (>60 ml/min/1.73 sqM) Glucose 83 (74-99) mg/dL Calcium 9.3 (8.4-10.2) mg/dL Magnesium 2.1 (1.6-2.3) mg/dL Total Bilirubin 1.0 (0.2-1.3) mg/dL AST 71 H (14-36) U/L ALT 37 H (4-34) U/L Alkaline Phosphatase 75 (38-126) U/L Troponin I (0.000-0.034) ng/mL NT-Pro-B Natriuret Pep pg/mL Total Protein 8.1 (6.3-8.2) g/dL Albumin 4.8 (3.5-5.0) g/dL Lipase 837 H (23-300) U/L Coronavirus (PCR) (Not Detectd) 04/07/20 04/07/20 04/07/20 Range/Units 11:42 11:42 11:42 WBC (3.8-10.6) k/uL RBC (3.80-5.40) m/uL Hgb (11.4-16.0) gm/dL Hct (34.0-46.0) % MCV (80.0-100.0) fL MCH (25.0-35.0) pg MCHC (31.0-37.0) g/dL RDW (11.5-15.5) % Plt Count (150-450) k/uL MPV Neutrophils % % Lymphocytes % % Monocytes % % Eosinophils % % Basophils % % Neutrophils # (1.3-7.7) k/uL Lymphocytes # (1.0-4.8) k/uL Monocytes # (0-1.0) k/uL Eosinophils # (0-0.7) k/uL Basophils # (0-0.2) k/uL Manual Slide Review Large Platelets RBC Morphology PT (9.0-12.0) sec INR (<1.2) APTT (22.0-30.0) sec D-Dimer (<0.60) mg/L FEU Sodium (137-145) mmol/L Potassium (3.5-5.1) mmol/L Chloride (98-107) mmol/L Carbon Dioxide (22-30) mmol/L Anion Gap mmol/L BUN (7-17) mg/dL Creatinine (0.52-1.04) mg/dL Est GFR (CKD-EPI)AfAm (>60 ml/min/1.73 sqM) Est GFR (CKD-EPI)NonAf (>60 ml/min/1.73 sqM) Glucose (74-99) mg/dL Calcium (8.4-10.2) mg/dL Magnesium (1.6-2.3) mg/dL Total Bilirubin (0.2-1.3) mg/dL AST (14-36) U/L ALT (4-34) U/L Alkaline Phosphatase (38-126) U/L Troponin I <0.012 (0.000-0.034) ng/mL NT-Pro-B Natriuret Pep 223 pg/mL Total Protein (6.3-8.2) g/dL Albumin (3.5-5.0) g/dL Lipase (23-300) U/L Coronavirus (PCR) Not Detected (Not Detectd) Disposition Clinical Impression: Right leg pain, Ecchymosis, Chest pain Disposition: ADMITTED IP TO THIS [facility] Condition: Stable Is patient prescribed a controlled substance at d/c from ED?: No Referrals: Cristiano Hsu MD [Primary Care Provider] - 1-2 days Time of Disposition: 13:11 Decision to Admit Reason: Admit from EC Decision Date: 04/07/20 Decision Time: 13:12
[2020-04-07 12:24] LABS: D-Dimer 0.4 mg/L FEU (<0.60); Partial Thromboplastin Time 23.4 sec (22.0-30.0); Prothrombin Time 10.1 sec (9.0-12.0)
[2020-04-07 12:34] LABS: Large Platelets Present
--- NOTE | 2020-04-07 12:43 | US ---
EXAMINATION TYPE: US venous doppler duplex LE RT DATE OF EXAM: 04/07/2020 12:26 PM COMPARISON: NONE CLINICAL HISTORY: mass behind right knee. Palpable/painful area behind right knee x 1 day SIDE PERFORMED: Right TECHNIQUE: The lower extremity deep venous system is examined utilizing real time linear array sonog tashi with graded compression, doppler sonography and color-flow sonography. VESSELS IMAGED: Common Femoral Vein Deep Femoral Vein Greater Saphenous Vein * Femoral Vein Popliteal Vein Small Saphenous Vein * Proximal Calf Veins (* superficial vessels) Right Leg: Appears negative for DVT Right popliteal fossa: no abnormality seen at patient's area of concern. IMPRESSION: No DVT of the right lower extremity. No sonographic evidence of significant fluid or mass in the area of clinical concern/popliteal fossa.
[2020-04-07] MEDS ORDERED: NITROGLYCERIN SL TABS 0.4 MG TAB SUBLINGUAL PRN (13:09)
[2020-04-07] MEDS ORDERED: CLINDAMYCIN 600 MG in DEXTROSE 5% IN WATER 50 ML IVPB STA ×2 (13:11)
[2020-04-07] MEDS ORDERED: SODIUM CHLORIDE 0.9% 1,000 ML IV ONE (13:29)
[2020-04-07] MEDS ORDERED: SODIUM CHLORIDE 0.9% 1,000 ML IV SCH (13:30)
--- NOTE | 2020-04-07 13:59 | XR ---
EXAMINATION TYPE: XR chest 2V DATE OF EXAM: 04/07/2020 COMPARISON: 11/25/2019. HISTORY: Chest pain. TECHNIQUE: Frontal and lateral views of the chest are obtained. FINDINGS: There is no focal air space opacity, pleural effusion, or pneumothorax seen. The cardiac silhouette size is enlarged. The osseous structures are intact. Cardiothoracic postsurgical changes noted. Bilateral axillary skin fold artifact seen. IMPRESSION: No definite acute cardiopulmonary process.
[2020-04-07] MEDS ORDERED: LORATADINE 10 MG TAB PO PRN (15:14)
[2020-04-07] MEDS: GABAPENTIN 300 MG CAP PO SCH ×2 (16:02→22:25)
--- NOTE | 2020-04-07 17:23 | P.HPIM ---
History of Present Illness H&P Date: 04/07/20 Chief Complaint: Bruising behind right knee History of presenting complaint: This is a pleasant 30-year-old patient of Dr. Hsu. Patient's chronic stable medical conditions include hepatitis C that was treated, intermittent asthma, cardiomyopathy with AICD - followed by Dr. HOSSEIN Keating. EF 35-40% with a normal functioning bioprosthetic mitral valve., Neurofibromatosis. Patient [place] she suddenly felt lightheaded legs became weak. She started falling backwards and a friend caught her from hitting the duct. She developed some pain behind the left knee fossa. Patient never passed out. No chest pain or palpitation. Review of systems: GEN.: None EYES: None HEENT: None NECK: None RESPIRATORY: None CARDIOVASCULAR: No palpitation GASTROINTESTINAL: None GENITOURINARY: None MUSCULOSKELETAL: None LYMPHATICS: None HEMATOLOGICAL: None PSYCHIATRY: None NEUROLOGICAL: No focal symptoms Past medical history to include: Asthma, DVT, cardiomyopathy, hepatitis C, neurofibromatosis, ejection fraction 35-40 %, AICD-prosthetic mitral valve replacement 2016 Social history: Smoking a pack a day since 2009 down to few cigarettes. Has children at home. Occasional alcohol Physical examination: VITAL SIGNS: 97.9, 91, 18, 1 3983, 100% room air GENERAL: BMI 26.3, laying in bed, comfortable EYES: Pupils equal. Conjunctiva normal. HEENT: External appearance of nose and ears normal, oral cavity grossly normal. NECK: JVD not raised; masses not palpable. HEART: First and second heart sounds are normal; no edema. LUNGS: Respiratory rate normal; clear to auscultation. ABDOMEN: Soft, nontender, liver spleen not palpable, no masses palpable. PSYCH: Alert and oriented x3; mood and affect normal. NEUROLOGICAL: Cranial nerves grossly intact; no facial asymmetry, power and sensation grossly intact. LYMPHATICS: No lymph nodes palpable in the axilla and neck MUSCULAR skeletal: In the right popliteal fossa is area of tender bruising. Not pulsatile. No defined margins. INVESTIGATIONS, reviewed in the clinical context: White count 5.5 hemoglobin 13.4 platelets 121 potassium 4.4 creatinine 0.56, AST 71 ALT 37 COVID 19 P/Cr-not detected Venous Doppler-negative 2-D echocardiogram EF 35-40%, normal functioning bioprosthetic mitral valve, global hypokinesis Assessment: -Near-syncope likely from arrhythmia short-lived, patient never passed out. -Nonischemic Cardiomyopathy EF 35-40% -Intermittent asthma -Neurofibromatosis -AICD -Bruising behind the right knee/popliteal fossa likely from sudden muscle pull while falling. Negative for DVT. No pulsation. No mass. Plan: Home medications to be resumed. Placed on telemetry. Consult cardiology. Patient really concerned about a bruising at the back of the right leg. We'll get orthopedic opinion. Use ice pack. Placed into observation. Past Medical History Past Medical History: Asthma, Deep Vein Thrombosis (DVT), Liver Disease Additional Past Medical History / Comment(s): Cardiomyopathy; Neurofibromatosis, asthma as a child, SOB w/exertion, ?DVT several years ago, "inflammed ga llbladder" per pt., nausea, abd. pain, 16%EF per pt. History of Any Multi-Drug Resistant Organisms: None Reported Past Surgical History: AICD, Cholecystectomy Additional Past Surgical History / Comment(s): Heart valve replacement in [place], Detached Retina surgery, left lung pneumothorax- after heart valve replacement. liver biopsy 2011. Defibrillator, 2019 Past Anesthesia/Blood Transfusion Reactions: No Reported Reaction Type of Cardiac Device: AICD Device Placement Date:: 01-11-18 Past Psychological History: Anxiety Smoking Status: Current every day smoker Past Alcohol Use History: None Reported Past Drug Use History: None Reported - Past Family History Mother Family Medical History: No Reported History Father Family Medical History: Skin Disorder Additional Family Medical History / Comment(s): neruofibromatosis 2 Medications and Allergies Home Medications Medication Instructions Recorded Confirmed Type Gabapentin 600 mg PO TID 10/19/19 04/07/20 History Cetirizine HCl [Zyrtec] 10 mg PO DAILY PRN 11/25/19 04/07/20 History Ergocalciferol [Vitamin D2 50,000 unit PO Q7D 11/25/19 04/07/20 History (DRISDOL)] Atomoxetine HCl [Strattera] 40 mg PO DAILY 04/07/20 04/07/20 History Allergies Allergy/AdvReac Type Severity Reaction Status Date / Time Latex, Natural Rubber Allergy Rash/Hives Verified 04/07/20 10:52 peas Allergy Rash/Hives Verified 04/07/20 10:52 guaifenesin [From Robitussin] AdvReac Nausea & Verified 04/07/20 10:52 Vomiting Physical Exam Vitals: Vital Signs Temp Pulse Pulse Resp BP BP Pulse Ox 04/07/20 14:34 58 L 04/07/20 13:46 97.9 F 103 H 18 120/85 100 04/07/20 13:33 98.0 F 58 L 16 118/64 96 04/07/20 13:00 103 H 18 120/85 100 04/07/20 12:00 103 H 18 119/90 100 04/07/20 11:51 18 04/07/20 10:48 97.9 F 91 18 139/83 100 Intake and Output 04/07/20 04/07/20 04/07/20 06:59 14:59 22:59 Intake Total 50 Balance 50 Intake: Intake, IV Titration 50 Amount Clindamycin 600 mg In 50 Dextrose 5% in Water 50 ml @ 50 mls/hr IVPB ONCE STA Rx#:[id number] Other: Weight 58.967 kg Results CBC & Chem 7: 04/07/20 11:42 04/07/20 11:42 Labs: Abnormal Lab Results - Last 24 Hours (Table) 04/07/20 04/07/20 Range/Units 11:42 11:42 Plt Count 121 L (150-450) k/uL Lymphocytes # 0.9 L (1.0-4.8) k/uL Sodium 136 L (137-145) mmol/L Carbon Dioxide 19 L (22-30) mmol/L AST 71 H (14-36) U/L ALT 37 H (4-34) U/L Lipase 837 H (23-300) U/L Thrombosis Risk Factor Assmnt - Choose All That Apply Any of the Below Risk Factors Present?: No Each Risk Factor Represents 3 Points: History of DVT/PE Other congenital or acquired thrombophilia - If yes, enter type in comment: No Thrombosis Risk Factor Assessment Total Risk Factor Score: 3 Thrombosis Risk Factor Assessment Level: Moderate Risk
[2020-04-07] MEDS: ENOXAPARIN 40 MG/0.4 ML SYRINGE SQ SCH (17:31)
--- NOTE | 2020-04-07 17:52 | XR ---
RESULT: HISTORY: eccymotic mass. Pain and swelling. TECHNIQUE: 3 views of the right knee. 2 views of the right tibia-fibula. COMPARISON: None. FINDINGS: There is no acute fracture or dislocation of the right knee, tibia or fibula. The visualized joint sp aces are preserved. No significant knee joint effusion. Soft tissues are better evaluated by cross-sectional imaging. IMPRESSION: No acute osseous abnormality of the right knee, tibia or fibula.
--- NOTE | 2020-04-07 18:18 | P.GSCN ---
History of Present Illness Consult date: 04/07/20 History of present illness: The patient is a 30-year-old female with a past medical history of hepatitis, asthma, cardiomyopathy with AICD, neurofibromatosis who was walking with a friend the other day and felt like she was becoming weak. She almost fell but her friend caught her and Her from injuring herself. She has complaints of pain behind her left knee. She denies any popping sensation that she is aware of this pain. She's never had pain like this before. She does have multiple areas of bruising and has somewhat easier bruisability. She denies any fevers, chills, nausea, vomiting chest pain or shortness of breath Past Medical History Past Medical History: Asthma, Deep Vein Thrombosis (DVT), Liver Disease Additional Past Medical History / Comment(s): Cardiomyopathy; Neurofibromatosis, asthma as a child, SOB w/exertion, ?DVT several years ago, "inflammed gallbladder" per pt., nausea, abd. pain, 16%EF per pt. History of Any Multi-Drug Resistant Organisms: None Reported Past Surgical History: AICD, Cholecystectomy Additional Past Surgical History / Comment(s): Heart valve replacement in [place], Detached Retina surgery, left lung pneumothorax- after heart valve replacement. liver biopsy 2012. Defibrillator, 2019 Past Anesthesia/Blood Transfusion Reactions: No Reported Reaction Type of Cardiac Device: AICD Device Placement Date:: 01-11-18 Past Psychological History: Anxiety Smoking Status: Current every day smoker Past Alcohol Use History: None Reported Past Drug Use History: None Reported - Past Family History Mother Family Medical History: No Reported History Father Family Medical History: Skin Disorder Additional Family Medical History / Comment(s): neruofibromatosis 2 Medications and Allergies Home Medications Medication Instructions Recorded Confirmed Type Gabapentin 600 mg PO TID 10/19/19 04/07/20 History Cetirizine HCl [Zyrtec] 10 mg PO DAILY PRN 11/25/19 04/07/20 History Ergocalciferol [Vitamin D2 50,000 unit PO Q7D 11/25/19 04/07/20 History (DRISDOL)] Atomoxetine HCl [Strattera] 40 mg PO DAILY 04/07/20 04/07/20 History Allergies Allergy/AdvReac Type Severity Reaction Status Date / Time Latex, Natural Rubber Allergy Rash/Hives Verified 04/07/20 10:52 peas Allergy Rash/Hives Verified 04/07/20 10:52 guaifenesin [From Robitussin] AdvReac Nausea & Verified 04/07/20 10:52 Vomiting Surgical - Exam Vital Signs Temp Pulse Resp BP Pulse Ox 97.9 F 91 18 139/83 100 04/07/20 10:48 04/07/20 10:48 04/07/20 10:48 04/07/20 10:48 04/07/20 10:48 Gen. is a pleasant and cooperative female in no acute distress. HEENT is normoc ephalic, atraumatic, extraocular motion intact. Heart is regular in rate and rhythm. Lungs are clear bilaterally. Abdomen is soft. Extremity show no clubbing or cyanosis. There are multiple areas of ecchymosis over her knees. There is a modest sized ecchymotic area in her left popliteal fossa on the lateral portion without any pulsatility. She has I will radial, femoral and dorsalis pedis pulses bilaterally. Normal mood, flattened affect. Cranial nerves II through XII grossly intact Results Ultrasound of the lower extremity is reviewed. No evidence of DVT - Labs 04/07/20 11:42 04/07/20 11:42 Abnormal Lab Results - Last 24 Hours (Table) 04/07/20 04/07/20 Range/Units 11:42 11:42 Plt Count 121 L (150-450) k/uL Lymphocytes # 0.9 L (1.0-4.8) k/uL Sodium 136 L (137-145) mmol/L Carbon Dioxide 19 L (22-30) mmol/L AST 71 H (14-36) U/L ALT 37 H (4-34) U/L Lipase 837 H (23-300) U/L Diabetes panel 04/07/20 Range/Units 11:42 Sodium 136 L (137-145) mmol/L Potassium 4.4 (3.5-5.1) mmol/L Chloride 107 (98-107) mmol/L Carbon Dioxide 19 L (22-30) mmol/L BUN 9 (7-17) mg/dL Creatinine 0.56 (0.52-1.04) mg/dL Glucose 83 (74-99) mg/dL Calcium 9.3 (8.4-10.2) mg/dL AST 71 H (14-36) U/L ALT 37 H (4-34) U/L Alkaline Phosphatase 75 (38-126) U/L Total Protein 8.1 (6.3-8.2) g/dL Albumin 4.8 (3.5-5.0) g/dL Calcium panel 04/07/20 Range/Units 11:42 Calcium 9.3 (8.4-10.2) mg/dL Albumin 4.8 (3.5-5.0) g/dL Pituitary panel 04/07/20 Range/Units 11:42 Sodium 136 L (137-145) mmol/L Potassium 4.4 (3.5-5.1) mmol/L Chloride 107 (98-107) mmol/L Carbon Dioxide 19 L (22-30) mmol/L BUN 9 (7-17) mg/dL Creatinine 0.56 (0.52-1.04) mg/dL Glucose 83 (74-99) mg/dL Calcium 9.3 (8.4-10.2) mg/dL Adrenal panel 04/07/20 Range/Units 11:42 Sodium 136 L (137-145) mmol/L Potassium 4.4 (3.5-5.1) mmol/L Chloride 107 (98-107) mmol/L Carbon Dioxide 19 L (22-30) mmol/L BUN 9 (7-17) mg/dL Creatinine 0.56 (0.52-1.04) mg/dL Glucose 83 (74-99) mg/dL Calcium 9.3 (8.4-10.2) mg/dL Total Bilirubin 1.0 (0.2-1.3) mg/dL AST 71 H (14-36) U/L ALT 37 H (4-34) U/L Alkaline Phosphatase 75 (38-126) U/L Total Protein 8.1 (6.3-8.2) g/dL Albumin 4.8 (3.5-5.0) g/dL Assessment and Plan Assessment: #1 leg pain #2 ecchymosis #3 hepatitis C #4 neurofibromatosis Plan: At this time I do not believe there is any significant arterial injury. Likely she had some sort of muscular strain or possibly a Reynolds's cyst. There is no diagnostic finding on ultrasound as ordered although was a venous duplex. May consider a soft tissue ultrasound versus further workup by orthopedics. No vascular interventions planned.
[2020-04-07 20:40] VITALS: RESP 16
[2020-04-08 02:55] LABS: Cholesterol 194 mg/dL (<200); HDL Cholesterol 89 mg/dL (40-60); LDL Cholesterol,Calculated 89 mg/dL (0-99); Triglycerides 82 mg/dL (<150)
[2020-04-08] MEDS ORDERED: ACETAMINOPHEN TAB 500 MG TAB PO PRN (07:41)
--- NOTE | 2020-04-08 08:14 | P.CNOR ---
History of Present Illness - HPI Consult date: 04/08/20 History of present illness: The patient is a 30 year old female with a history of pericardial tissue mitral heart valve performed in 2017 in [place] with defibrillator due to heart failure from cardiomyopathy, neurofibromatosis, and pancreatitis who presented to the ER yesterday for severe right posterior knee bruising and swelling. She states walking on the beach 2 days ago when she noticed discomfort and swelling to the posterior right knee swelling/bruising. She states she has history of blood clots and was concerned. Denies current anticoagulation therapy stating that she was taken off of them and does not know why. X-rays and venous doppler were negative for fracture/clots. Today, she states her knee is still painful. She is able to ambulate to the bathroom without increased pain on weightbearing. She is unable to straighten or flex the knee fully. The patient is taking Neurontin for pain. Review of Systems Constitutional: Denies chills, Denies fatigue, Denies fever Cardiovascular: Denies chest pain, Denies shortness of breath Respiratory: Denies cough Gastrointestinal: Denies diarrhea, Denies nausea, Denies vomiting Musculoskeletal: right: knee pain, knee stiffness, knee swelling Past Medical History Past Medical History: Asthma, Deep Vein Thrombosis (DVT), Liver Disease Additional Past Medical History / Comment(s): Cardiomyopathy; Neurofibromatosis, asthma as a child, SOB w/exertion, ?DVT several years ago, "inflammed gallbladder" per pt., nausea, abd. pain, 16%EF per pt. History of Any Multi-Drug Resistant Organisms: None Reported Past Surgical History: AICD, Cholecystectomy Additional Past Surgical History / Comment(s): Heart valve replacement in [place], Detached Retina surgery, left lung pneumothorax- after heart valve replacement. liver biopsy 2011. Defibrillator, 2019 Past Anesthesia/Blood Transfusion Reactions: No Reported Reaction Type of Cardiac Device: AICD Device Placement Date:: 01-11-18 Past Psychological History: Anxiety Smoking Status: Current every day smoker Past Alcohol Use History: None Reported Past Drug Use History: None Reported - Past Family History Mother Family Medical History: No Reported History Father Family Medical History: Skin Disorder Additional Family Medical History / Comment(s): neruofibromatosis 2 Medications and Allergies Home Medications Medication Instructions Recorded Confirmed Type Gabapentin 600 mg PO TID 10/19/19 04/07/20 History Cetirizine HCl [Zyrtec] 10 mg PO DAILY PRN 11/25/19 04/07/20 History Ergocalciferol [Vitamin D2 50,000 unit PO Q7D 11/25/19 04/07/20 History (DRISDOL)] Atomoxetine HCl [Strattera] 40 mg PO DAILY 04/07/20 04/07/20 History Allergies Allergy/AdvReac Type Severity Reaction Status Date / Time Latex, Natural Rubber Allergy Rash/Hives Verified 04/07/20 10:52 peas Allergy Rash/Hives Verified 04/07/20 10:52 guaifenesin [From Robitussin] AdvReac Nausea & Verified 04/07/20 10:52 Vomiting Physical Examination The patient is a 30 y/o female who is no acute distress. She is alert and oriented x3. Exam of the right lower extremity reveals ecchymosis to the posterior knee and multiple bruises to the leg. The area to the posterior knee is marked with a skin marker. The area is moderately tender on palpation without pulsation. She is lacking about 5 degrees of full extension and able to flex the knee to 90 degrees without significant pain. Calf is soft and non-tender. Good foot and ankle motion. Normal sensation. Capillary refill <2 seconds. Foot is warm and well-perfused. Results Venous doppler is negative for DVT. - Labs Labs: Abnormal Lab Results - Last 24 Hours (Table) 04/07/20 04/07/20 04/07/20 Range/Units 07:40 11:42 11:42 Plt Count 121 L (150-450) k/uL Lymphocytes # 0.9 L (1.0-4.8) k/uL Sodium 136 L (137-145) mmol/L Carbon Dioxide 19 L (22-30) mmol/L AST 71 H (14-36) U/L ALT 37 H (4-34) U/L HDL Cholesterol 89 H (40-60) mg/dL Lipase 837 H (23-300) U/L H & H 04/07/20 Range/Units 11:42 Hgb 13.4 (11.4-16.0) gm/dL Hct 40.9 (34.0-46.0) % Coagulation 04/07/20 Range/Units 11:42 INR 1.0 (<1.2) Result Diagrams: 04/07/20 11:42 04/07/20 11:42 - Diagnostic results Knee x-ray: image reviewed (X-ray of the right knee reveals no acute fracture, dislocation, bone lesions, or arthritic changes. ) Assessment and Plan Assessment: Right knee posterior pain/strain Plan: The clinical and x-ray findings were discussed with the patient. The case was discussed with Dr. Crane. No orthopedic surgical intervention or further imaging is warranted at this time. Continue pain management, Tylenol has been ordered. She may apply ice and/or heat to the knee for comfort. We will hold off on a brace at this time due to the patient's concerns about pressure on the posterior knee. Continue protective weightbearing. An MRI may be needed if her pain does not improve in the 1-2 weeks. The patient will follow up in our office in 1-2 weeks for further orthopedic care and treatment. She is orthopedically stable for discharge from our standpoint.
[2020-04-08] MEDS: GABAPENTIN 300 MG CAP PO SCH ×2 (08:46→16:09)
[2020-04-08] MEDS ORDERED: ASPIRIN 325 MG TAB PO SCH (09:00)
[2020-04-08] MEDS ORDERED: NON FORMULARY DRUG (Atomoxetine Hcl [Strattera] 40 MG Capsule) PO SCH (09:00)
--- NOTE | 2020-04-08 10:55 | P.CRDCN ---
History of Present Illness Consult date: 04/08/20 Reason for Consult (text): Near Syncope/cardiomyopathy with AICD Chief complaint: Near syncope/Cardiomyopathy with AICD History of present illness: HISTORY OF PRESENT ILLNESS AND PLAN: This is a 30-year-old female with history of significant for valvular heart disease s/p tissue mitral valve replacement in [place] in 2016, non-ischemic cardiomyopathy with EF of 35-40%, s/p single chamber [employer] AICD in 2018, non-obstructive CAD by cardiac cath in [place] in 2015, SVT status post ablation in 2018, hypertension, chronic systolic heart failure, current smoking, asthma and Hepatitis. Patient presents to ER with complaints of right posterior knee swelling and pain. Patient states [place] when she began to feel right posterior knee pain with associated lighthea dedness, legs became weak and she had a near-syncopal episode. Patient states her friend did not let her fall and she had no complete syncope. Pt denies being bit by any insects or animals. Patient currently lying in bed in no acute distress. Patient has no current complaints of chest pain, chest pressure, shortness of breath or palpitations. Troponins negative 3. Tele shows sinus rhythm/sinus tach, heart rate 88. Patient vital signs stable. Afebrile. Patient sat 100% on room air. Patient swab for COVID-19, negative. Physical exam within normal limits except for right posterior knee redness/swelling/pian. Patient has no complaints of cough or fever. Most recent office visit with Dr. HOSSEIN Keating was in September 2019 and AICD was interrogated and functioning well. Most recent echo at [facility] November 2019 shows EF at 35-40% with global hypokinesia and stable tissue bioprosthetic MV. Pt does seem to be a poor historian. Pt states she has a questionable history of DVT, no anticoagulation. D-Dimer WNL. SIGNIFICANT PAST MEDICAL HISTORY: Valvular heart disease s/p tissue mitral valve replacement in [place] in 2017, non-ischemic cardio myopathy with EF of 35-40%, s/p single chamber Medtronic AICD in 2018, non-obstructive CAD by cardiac cath in [place] in 2015, SVT status post ablation in 2018, hypertension, chronic systolic heart failure, current smoking, asthma and Hepatitis C. PAST SURGICAL HISTORY: See list. EKG = Sinus Tachycardia, hr 108. No acute process. Troponins negative x 3 SIGNIFICANT LABORATORY VALUES: COVID negative. Lipase 837. Sodium 136. D-Dimer - negative. Chest x-ray 04/07/20, no acute process Doppler of RIGHT lower extremity 04/07/20, negative for DVT. DX of RIGHT knee/tibia/fibula 04/07/20, no fracture, no acute process Most recent echo November 2019 = EF at 35-40% with global hypokinesia and stable tissue bioprosthetic MV. REVIEW OF SYSTEMS: CONSTITUTIONAL: Denies fever. Denies chills. EYES: Denies blurred vision. Denies blurred vision or vision changes. Denies eye pain. EARS, NOSE, MOUTH & THROAT: Denies headache. Denies sore throat. Denies ear pain Denies hemoptysis. CARDIOVASCULAR: Denies chest pain. Denies shortness of breath. Denies orthopnea. Denies PND. Denies palpitations. RESPIRATORY: Denies cough. Denies shortness of breath. GASTROINTESTINAL: Denies abdominal pain or distention. Denies diarrhea. Denies constipation. Denies nausea. Denies vomiting. MUSCULOSKELETAL: Complains of myalgias and sorenes of RIGHT posterior knee. INTEGUMENTARY: Denies pruitis. Denies rash. ENDOCRINE: Denies fatigue. Denies weight change. Denies polydipsia. Denies polyurina Denies heat/cold intolerance. GENITOURINARY: Denies burning, hematuria or urgency with micturation. HEMATOLOGIC: Denies history of anemia. Denies bleeding. NEUROLOGIC: Denies numbness. Denies tingling. Complains of generalized weakness. Complains of dizziness. PSYCHIATRIC: Denies anxiety. Denies depression. PHYSICAL EXAM: GENERAL: Well developed, in no acute distress. HEENT: Head is atraumatic, normocephalic. Pupils are equal, round. Extra ocular movements intact. Mucous membranes moist. Neck supple. No JVD. No carotid bruit. No thyromegaly. LUNGS: Clear to auscultation. No wheezes, rales or rhonchi. No chest wall tenderness on palpation or with deep breathing. HEART: Regular rate and rhythm, no rubs or gallops. S1 and S2 heard. No murmur. ABDOMEN: Abdominal exam, WNL. Bowel sounds x4 quads. Soft, non-tender, without masses, organomegaly, or abdominal aorta enlargement. EXTREMITIES/VASCULAR: Extremities have easily palpable radial, femoral, dorsalis pedis and posterior tibial pulses. No cyanosis, calf tenderness. No BLE edema. RIGHT posterior knee is mildly swollen, red and tender to touch. NEUROLOGIC: Patient is awake, alert and oriented x3. No focal neurologic abnormalities. FINAL IMPRESSION: 1. Pre-syncope 2. Valvular heart disease s/p tissue mitral valve replacement 3. Non-ischemic cardio myopathy with EF of 35-40%, 4. S/P AICD 5. Hypertension PLAN: Pt non-compliant with medications. No acute cardiology process. Start Metoprolol 12.5 mg twice daily. Start aldactone 25 mg daily. Start Lisinpril at HS. OK to discharge from a cardiology perspective. FOV in 2 weeks (Apr 20 in the afternoon) at office with DR. HOSSEIN Keating. Nurse Practitioner note has been reviewed by the Physician. Signing provider agrees with the documented findings, assessment and plan of care. Past Medical History Past Medical History: Asthma, Deep Vein Thrombosis (DVT), Liver Disease Additional Past Medical History / Comment(s): Cardiomyopathy; Neurofibromatosis, asthma as a child, SOB w/exertion, ?DVT several years ago, "inflammed gallbladder" per pt., nausea, abd. pain, 16%EF per pt. History of Any Multi-Drug Resistant Organisms: None Reported Past Surgical History: AICD, Cholecystectomy Additional Past Surgical History / Comment(s): Heart valve replacement in [place], Detached Retina surgery, left lung pneumothorax- after heart valve replacement. liver biopsy 2012. Defibrillator, 2019 Past Anesthesia/Blood Transfusion Reactions: No Reported Reaction Type of Cardiac Device: AICD Device Placement Date:: 01-11-18 Past Psychological History: Anxiety Smoking Status: Current every day smoker Past Alcohol Use History: None Reported Past Drug Use History: None Reported - Past Family History Mother Family Medical History: No Reported History Father Family Medical History: Skin Disorder Additional Family Medical History / Comment(s): neruofibromatosis 2 Medications and Allergies Home Medications Medication Instructions Recorded Confirmed Type Gabapentin 600 mg PO TID 10/19/19 04/07/20 History Cetirizine HCl [Zyrtec] 10 mg PO DAILY PRN 11/25/19 04/07/20 History Ergocalciferol [Vitamin D2 50,000 unit PO Q7D 11/25/19 04/07/20 History (DRISDOL)] Atomoxetine HCl [Strattera] 40 mg PO DAILY 04/07/20 04/07/20 History Allergies Allergy/AdvReac Type Severity Reaction Status Date / Time Latex, Natural Rubber Allergy Rash/Hives Verified 04/07/20 10:52 peas Allergy Rash/Hives Verified 04/07/20 10:52 guaifenesin [From Robitussin] AdvReac Nausea & Verified 04/07/20 10:52 Vomiting Physical Exam Vitals: Vital Signs Temp Pulse Pulse Resp BP BP BP 04/08/20 07:55 97.9 F 89 16 108/81 04/08/20 03:00 97.8 F 88 16 139/82 04/07/20 20:39 96.8 F L 95 16 105/69 04/07/20 14:34 58 L 04/07/20 13:46 97.9 F 103 H 18 120/85 04/07/20 13:33 98.0 F 58 L 16 118/64 04/07/20 13:00 103 H 18 120/85 04/07/20 12:00 103 H 18 119/90 04/07/20 11:51 18 04/07/20 10:48 97.9 F 91 18 139/83 Pulse Ox 04/08/20 07:55 100 04/08/20 03:00 100 04/07/20 20:39 99 04/07/20 14:34 04/07/20 13:46 100 04/07/20 13:33 96 04/07/20 13:00 100 04/07/20 12:00 100 04/07/20 11:51 04/07/20 10:48 100 Intake and Output 04/07/20 04/08/20 04/08/20 22:59 06:59 14:59 Other: # Voids 2 2 Results 04/07/20 11:42 04/07/20 11:42 Cardiac Enzymes 04/07/20 04/07/20 04/07/20 Range/Units 11:42 11:42 16:26 AST 71 H (14-36) U/L Troponin I <0.012 <0.012 (0.000-0.034) ng/mL 04/07/20 Range/Units 19:11 AST (14-36) U/L Troponin I <0.012 (0.000-0.034) ng/mL Coagulation 04/07/20 Range/Units 11:42 PT 10.1 (9.0-12.0) sec APTT 23.4 (22.0-30.0) sec Lipids 04/07/20 Range/Units 07:40 Triglycerides 82 (<150) mg/dL Cholesterol 194 (<200) mg/dL HDL Cholesterol 89 H (40-60) mg/dL CBC 04/07/20 Range/Units 11:42 WBC 5.5 (3.8-10.6) k/uL RBC 4.59 (3.80-5.40) m/uL Hgb 13.4 (11.4-16.0) gm/dL Hct 40.9 (34.0-46.0) % Plt Count 121 L (150-450) k/uL Comprehensive Metabolic Panel 04/07/20 Range/Units 11:42 Sodium 136 L (137-145) mmol/L Potassium 4.4 (3.5-5.1) mmol/L Chloride 107 (98-107) mmol/L Carbon Dioxide 19 L (22-30) mmol/L BUN 9 (7-17) mg/dL Creatinine 0.56 (0.52-1.04) mg/dL Glucose 83 (74-99) mg/dL Calcium 9.3 (8.4-10.2) mg/dL AST 71 H (14-36) U/L ALT 37 H (4-34) U/L Alkaline Phosphatase 75 (38-126) U/L Total Protein 8.1 (6.3-8.2) g/dL Albumin 4.8 (3.5-5.0) g/dL Current Medications Generic Name Dose Route Start Last Admin Trade Name Freq PRN Reason Stop Dose Admin Acetaminophen 500 mg 04/08/20 07:41 Acetaminophen Tab 500 Mg Tab PO Q6HR PRN Pain Aspirin 325 mg 04/08/20 09:00 04/08/20 08:47 Aspirin 325 Mg Tab PO 325 mg DAILY ALEX Administration Enoxaparin Sodium 40 mg 04/07/20 17:15 04/07/20 17:31 Enoxaparin 40 Mg/0.4 Ml Syringe SQ 40 mg Q24H ALEX Administration Gabapentin 600 mg 04/07/20 16:00 04/08/20 08:46 Gabapentin 300 Mg Cap PO 600 mg TID ALEX Administration Loratadine 10 mg 04/07/20 15:14 Loratadine 10 Mg Tab PO DAILY PRN Allergy Symptoms Nitroglycerin 0.4 mg 04/07/20 13:09 Nitroglycerin Sl Tabs 0.4 Mg Tab SUBLINGUAL Q5M PRN Chest Pain Non-Formulary Medication 40 mg 04/08/20 09:00 04/08/20 08:47 Atomoxetine Hcl [Strattera] PO Not Given DAILY ALEX Intake and Output 04/07/20 04/08/20 04/08/20 22:59 06:59 14:59 Other: # Voids 2 2 04/07/20 11:42 04/07/20 11:42 - EKG Interpretation EKG: sinus rhythm
[2020-04-08] MEDS ORDERED: SPIRONOLACTONE 25 MG TAB PO SCH (11:45)
[2020-04-08] MEDS: METOPROLOL TARTRATE 12.5 MG TAB PO SCH ×2 (12:39→20:12)
[2020-04-08] MEDS: ENOXAPARIN 40 MG/0.4 ML SYRINGE SQ SCH (17:15)
[2020-04-08] MEDS ORDERED: lisinopriL 5 MG TAB PO SCH (21:00)
[2020-04-08 21:18] VITALS: BP 127/80; PULSE 80; TEMP 97
--- NOTE | 2020-04-08 22:11 | P.DS ---
Providers Date of admission: 04/07/20 13:01 Expected date of discharge: 04/08/20 Attending physician: Clement Bliss Consults: 04/07/20 13:09 Consult Physician Urgent Consulting Provider: Yessi Perez Consult Reason/Comments: ecchymotic mass posterior right knee Do you want consulting provider notified?: Yes 04/07/20 15:15 Consult Physician Routine Consulting Provider: Vernon Keating Consult Reason/Comments: near syncope Do you want consulting provider notified?: Yes 04/07/20 15:17 Consult Physician Routine Consulting Provider: Sunny Crane Consult Reason/Comments: popliteal fossa bruising Do you want consulting provider notified?: Yes Primary care physician: [facility] Course: Chief Complaint: Bruising behind right knee History of presenting complaint: This is a pleasant 30-year-old patient of Dr. Hsu. Patient's chronic stable medical conditions include hepatitis C that was treated, intermittent asthma, c ardiomyopathy with AICD - followed by Dr. HOSSEIN Keating. EF 35-40% with a normal functioning bioprosthetic mitral valve., Neurofibromatosis. Patient [place] she suddenly felt lightheaded legs became weak. She started falling backwards and a friend caught her from hitting the duct. She developed some pain behind the left knee fossa. Patient never passed out. No chest pain or palpitation. Today-feeling better. Bruising is gone down. No cardiac symptoms. Discussed with Dr. HOSSEIN Keating. Okay to DC. Also seen by orthopedics.-Cleared. Aldactone ANTHONY inhibitor - added. Consultation: Dr. HOSSEIN Keating-[facility]iology [facility] Dr. Renate Preez-vascular Dr. Sunny Crane[facility] Physical examination: VITAL SIGNS: 97, 80, 127/80, 100% room air GENERAL: BMI 26.3, laying in bed, comfortable EYES: Pupils equal. Conjunctiva normal. NECK: JVD not raised; masses not palpable. HEART: First and second heart sounds are normal; no edema. LUNGS: Respiratory rate normal; clear to auscultation. ABDOMEN: Soft, nontender, liver spleen not palpable, no masses palpable. PSYCH: Alert and oriented x3; mood and affect normal. MUSCULAR skeletal: In the right popliteal fossa is area of tender bruising- improving. Not pulsatile. No defined margins. INVESTIGATIONS, reviewed in the clinical context: White count 5.5 hemoglobin 13.4 platelets 121 potassium 4.4 creatinine 0.56, AST 71 ALT 37 COVID 19 P/Cr-not detected Venous Doppler-negative 2-D echocardiogram EF 35-40%, normal functioning bioprosthetic mitral valve, global hypokinesis Assessment: -Near-syncope likely from arrhythmia short-lived, patient never passed out. -Nonischemic Cardiomyopathy EF 35-40% -Intermittent asthma -Neurofibromatosis -AICD -Bruising behind the right knee/popliteal fossa likely from sudden muscle pull while falling. Negative for DVT. No pulsation. No mass. Disposition: Home Patient Condition at Discharge: Stable Plan - Discharge Summary Discharge Rx Participant: No New Discharge Prescriptions: New Spironolactone [Aldactone] 25 mg PO DAILY #30 tab Metoprolol Tartrate [Lopressor] 12.5 mg PO BID #60 tab lisinopriL [Zestril] 5 mg PO HS #30 tab Continue Gabapentin 600 mg PO TID Ergocalciferol [Vitamin D2 (DRISDOL)] 50,000 unit PO Q7D Cetirizine HCl [Zyrtec] 10 mg PO DAILY PRN PRN Reason: Allergy Symptoms Atomoxetine HCl [Strattera] 40 mg PO DAILY Discharge Medication List Gabapentin 600 mg PO TID 10/19/19 [History] Cetirizine HCl [Zyrtec] 10 mg PO DAILY PRN 11/25/19 [History] Ergocalciferol [Vitamin D2 (DRISDOL)] 50,000 unit PO Q7D 11/25/19 [History] Atomoxetine HCl [Strattera] 40 mg PO DAILY 04/07/20 [History] Metoprolol Tartrate [Lopressor] 12.5 mg PO BID #60 tab 04/08/20 [Rx] Spironolactone [Aldactone] 25 mg PO DAILY #30 tab 04/08/20 [Rx] lisinopriL [Zestril] 5 mg PO HS #30 tab 04/08/20 [Rx] Follow up Appointment(s)/Referral(s): [facility] [Provider Group] - 1 Week (1-2 weeks) Vernon Keating MD [STAFF PHYSICIAN] - 1 Week Cristiano Hsu MD [Primary Care Provider] - 1-2 days Patient Instructions/Handouts: Chest Pain (DC), Ecchymosis (GEN) Activity/Diet/Wound Care/Special Instructions: bmp - 1 week Discharge Disposition: HOME SELF-CARE
[2020-04-09] MEDS ORDERED: ASPIRIN 81 MG PO SCH (09:00)
== END 2020-04-08 21:28 | disposition home or self-care (01) ==
LOC: EC 10:28 → 1SOBS 13:01
PROVIDERS: ADMIT Hospitalist; ATTEND Hospitalist
DX: R55 Syncope and collapse (principal); S80.01XA Contusion of right knee, initial encounter; W18.39XA Other fall on same level, initial encounter; R07.9 Chest pain, unspecified; I25.10 Atherosclerotic heart disease of native coronary artery without angina pectoris; I11.0 Hypertensive heart disease with heart failure; I50.22 Chronic systolic (congestive) heart failure; Z20.828 Contact with and (suspected) exposure to other viral communicable diseases; I42.8 Other cardiomyopathies; Z95.810 Presence of automatic (implantable) cardiac defibrillator; J45.20 Mild intermittent asthma, uncomplicated; F17.210 Nicotine dependence, cigarettes, uncomplicated; Z86.718 Personal history of other venous thrombosis and embolism; K76.9 Liver disease, unspecified; Q85.00 Neurofibromatosis, unspecified; Z90.49 Acquired absence of other specified parts of digestive tract; Z95.2 Presence of prosthetic heart valve; Z98.890 Other specified postprocedural states; F41.9 Anxiety disorder, unspecified; Z87.19 Personal history of other diseases of the digestive system; Z86.19 Personal history of other infectious and parasitic diseases; Z79.899 Other long term (current) drug therapy; Z91.040 Latex allergy status; Z88.8 Allergy status to other drugs, medicaments and biological substances; Z91.018 Allergy to other foods
CPT/HCPCS: 93005 ×2; 96361; 96366; 96372 ×2; 96365; 99285; 36415; 85379; 83880; 80061; 80053; 83690; 83735; 84484; 85025; 85610; 85730; 87040; 87635; 73590; 73562; 71046; 93971; G0378 ×2; J1650 ×2

== ENCOUNTER 2021-12-23 06:04 | Emergency (ER) | payer OTHER ==
[2021-12-23 06:23] VITALS: TEMP 98.9
--- NOTE | 2021-12-23 06:59 | XR ---
EXAMINATION TYPE: XR elbow complete RT DATE OF EXAM: 12/23/2021 COMPARISON: None HISTORY: Elbow pain TECHNIQUE: 3 views FINDINGS: There is no sign of fracture nor dislocation. Joint spaces are normal. No sign of elbow steffi nt effusion. IMPRESSION: Negative right elbow exam.
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
[2021-12-23 07:51] VITALS: BP 122/82; PULSE 105; RESP 18
== END 2021-12-23 07:50 | disposition home or self-care (01) ==
LOC: EC 06:04
DX: S40.021A Contusion of right upper arm, initial encounter (principal); S00.83XA Contusion of other part of head, initial encounter; F17.200 Nicotine dependence, unspecified, uncomplicated; J45.909 Unspecified asthma, uncomplicated; Z91.040 Latex allergy status; Z91.018 Allergy to other foods; Z79.899 Other long term (current) drug therapy; Y04.8XXA Assault by other bodily force, initial encounter
CPT/HCPCS: 70450; 70486; 72125; 99284

== ENCOUNTER 2023-05-16 19:12 | Emergency (ER) | payer OTHER ==
[2023-05-16 19:34] VITALS: RESP 18
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
--- NOTE | 2023-05-16 20:14 | XR ---
EXAMINATION TYPE: XR KUB DATE OF EXAM: 05/16/2023 7:58 PM CLINICAL INDICATION:Female, 33 years old with history of constipation; COMPARISON: None. TECHNIQUE: One radiographic view of the abdomen was obtained. FINDINGS: The bowel gas pattern is nonspecific without dilated loops of small or large bowel. There i s no evidence for organomegaly or pneumoperitoneum. The osseous structures are intact. No abnormal calcifications are present. Fecal material and gas are demonstrated throughout the colon and rectum. Cardiac conduction leads present. Valvular repair changes present. IMPRESSION: Nonspecific bowel gas pattern without radiographic evidence for acute process.
[2023-05-16 21:48] VITALS: BP 111/94; PULSE 80; TEMP 98.2
== END 2023-05-16 21:35 | disposition home or self-care (01) ==
LOC: EC 19:12
DX: R19.4 Change in bowel habit (principal); J45.909 Unspecified asthma, uncomplicated; F41.9 Anxiety disorder, unspecified; F12.90 Cannabis use, unspecified, uncomplicated; F17.200 Nicotine dependence, unspecified, uncomplicated; Z79.899 Other long term (current) drug therapy; Z91.040 Latex allergy status; Z88.8 Allergy status to other drugs, medicaments and biological substances
CPT/HCPCS: 74018; 99283

== ENCOUNTER → 2023-10-28 | Outpatient (CLI) | payer OTHER | END | disposition home or self-care (01) | LOC: LABWHC1 14:57 | PROVIDERS: ATTEND Internal Medicine Interventional Cardiology | DX: R53.83 Other fatigue (principal) | CPT/HCPCS: 36415; 84443 ==

== ENCOUNTER 2024-09-27 12:31 | Inpatient (IN) | payer OTHER ==
[2024-09-27] MEDS ORDERED: NALOXONE 0.4 MG/ML 1 ML VIAL IV PRN (13:02)
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
--- NOTE | 2024-09-27 17:08 | US ---
EXAMINATION TYPE: US carotid duplex BILAT DATE OF EXAM: 09/27/2024 COMPARISON: NONE CLINICAL INDICATION: Female, 34 years old with history of stroke; stroke or seizure symptoms Additional History: .... TECHNIQUE: Grayscale, color Doppler and spectral Doppler evaluation of the bilateral carotid systems and vertebral arteries. Indirect Doppler criteria was utilized. FINDINGS: EXAM MEASUREMENTS: RIGHT: Peak Systolic Velocity (PSV) cm/sec ----- Right CCA: 103 ----- Right ICA: 101 ----- Right ECA: 72.1 ICA/CCA ratio: 1.0 RIGHT: End Diastole cm/sec ----- Right CCA: 26.6 ----- Right ICA: 45.5 ----- Right ECA: 15.6 LEFT: Peak Systolic Velocity (PSV) cm/sec ----- Left CCA: 108 ----- Left ICA: 73.0 ----- Left ECA: 107 ICA/CCA ratio: 0.7 LEFT: End Diastole cm/sec ----- Left CCA: 23.4 ----- Left ICA: 29.3 ----- Left ECA: 13.8 VERTEBRALS (direction of flow): Right Vertebral: Antegrade Left Vertebral: Antegrade Rhythm: Normal TECHNICAL SERVICES ANALYST NOTES: no sign of significant stenosis or plaque. Exam limited by very high bifurcation a nd shadowing from mandible Color Doppler imaging shows patency with blood flow throughout the carotid artery. Spectral waveforms are within normal limits. IMPRESSION: Right: No hemodynamically significant stenosis. Left: No hemodynamically significant stenosis. Criteria for Assigning % of Stenosis / Diameter reduction (Estimation based on the indirect measurements of the internal carotid artery velocities (ICA PSV). 1. Normal (no stenosis)=ICA PSV < 180 cm/s: ratio < 2.0: ICA EDV<40 cm/s. 2. Less than 50% stenosis=ICA PSV < 180 cm/s: ratio < 2.0: ICA EDV<40 cm/s. 3. 50 to 69% stenosis=ICA PSV of 180 to 230 cm/s: ration 2.0 ? 4.0: ICA EDV 40-100 cm/s. PSV 125-180 cm/sec and ICA/CCA PSV Ratio ? 2.0 is also consistent with 50-69% stenosis 4. Greater than 70% stenosis to near occlusion= ICA PSV > 230 cm/s: ratio > 4.0: ICA EDV > 100 cm/s. 5. Near occlusion= ICA PSV velocities may be low or undetectable: variable ratio and ICA EDV. 6. Total occlusion=unable to detect flow. [facility], , 09/27/2024 5:06 PM
[2024-09-27] MEDS: carvediloL 6.25 MG TAB PO SCH (17:34)
[2024-09-27 18:11] LABS: Amphetamine Screen,Urine Not Detected (NotDetected); Barbiturate Screen,Urine Not Detected (NotDetected); Benzodiazepines Screen,Urine Detected (NotDetected); Cocaine Screen,Urine Not Detected (NotDetected); Methadone Screen, Urine Not Detected (NotDetected); Opiate Screen,Urine Detected (NotDetected); Oxycodone Screen, Urine Not Detected (NotDetected); Phencyclidine Screen,Urine Not Detected (NotDetected); Tricyclic Antidepressant,Urine Not Detected (NotDetected); Urn Cannabinoid Scrn Detected (NotDetected)
[2024-09-27 18:19] LABS: Appearance,Urine Cloudy (Clear); Bilirubin,Urine Negative (Negative); Blood,Urine Negative (Negative); Color,Urine Light Yellow; Glucose,Urine (UA) Negative (Negative); Ketones,Urine 1+ (Negative); Leukocyte Esterase,Urine Negative (Negative); Mucus,Urine Many /hpf; Nitrite,Urine Negative (Negative); PH, Urine 7.5 (5.0-8.0); Protein,Urine Negative (Negative); RBC,Urine 2 /hpf (0-5); Specific Gravity,Urine 1.018 (1.001-1.035); Squamous Epithelial Cell,Urine 3 /hpf (0-4); WBC,Urine 3 /hpf (0-5)
[2024-09-28] MEDS: LORazepam 1 MG/0.5 ML VIAL IV PRN (01:46)
--- NOTE | 2024-09-28 03:09 | HP ---
HISTORY AND PHYSICAL CHIEF COMPLAINT: Seizures. HISTORY OF PRESENT ILLNESS: This 34-year-old woman with a past medical history of psychiatric illness, being treated for , history of DVT, history of asthma, liver disease, cardiomyopathy, neurofibromatosis, apparently had a green party with mushrooms on the 8th of this month. The patient has some apparent psychotic reaction after that, but today the patient is noted to have some seizure-like activity and referred from [facility]. The patient was complaining electric-like sensations, some anxiety also. There is no history of any fever, rigors, or chills. PAST MEDICAL HISTORY: Asthma, DVT, and liver disease. Rest of the chart is also reviewed. HOME MEDICATIONS: Reviewed, include fluoxetine. Dose and rest of medications reviewed. ALLERGIES: Include latex. FAMILY HISTORY: History of neurofibromatosis type 2. SOCIAL HISTORY: History of smoking. REVIEW OF SYSTEMS: Fourteen-point review of systems is negative as mentioned, except as mentioned earlier. PHYSICAL EXAMINATION: VITAL SIGNS: Pulse is 76, blood pressure 140/88, and respirations 18. HEENT: Conjunctivae normal. NECK: No jugular venous distention. CARDIOVASCULAR: S1, S2 muffled. RESPIRATION: Breath sounds diminished at the bases. A few scattered rhonchi and crackles. ABDOMEN: Soft, nontender. LEGS: No edema. NERVOUS SYSTEM: Diffusely weak. LABORATORY DATA: Not available. ASSESSMENT: 1. Rule out generalized tonic-clonic seizures. 2. Rule out paranoid psychosis, possibly triggered by mushrooms. 3. Asthma. 4. History of deep venous thrombosis. 5. History of liver disease. 6. History of cardiomyopathy. 7. History of neurofibromatosis. 8. History of AICD. 9. Multiple complex medical issues. RECOMMENDATION AND DISCUSSION: This is a 34-year-old woman, presented with multiple complex medical issues. At this time, I recommend to continue the current medications. Continue symptomatic treatment. Otherwise, I would check Neurology and Cardiology consultations. Psychiatry also will be consulted. Home medications will be continued once confirmed. Prognosis is extremely guarded because of multiple complex medical issues. Further recommendations to follow. MMODL / IJN: [id number] / RISHI
[2024-09-28 04:07] VITALS: RESP 16
--- NOTE | 2024-09-28 08:18 | XR ---
EXAMINATION TYPE: XR chest 1V portable DATE OF EXAM: 09/28/2024 7:47 AM COMPARISON: 04/07/2020 CLINICAL INDICATION: Female, 34 years old with history of chf, , FINDINGS: Median sternotomy wires and prosthetic cardiac valve. Left anterior chest wall ICD generator with rig ht ventricular lead. Heart normal size. Aorta and pulmonary vasculature within normal limits. No cons olidation or pleural effusion. IMPRESSION: No overt CHF changes are identified. [facility], Workstation: [id number], 09/28/2024 8:16 AM
[2024-09-28 08:28] LABS: Basophils # (A) 0.03 X 10*3/uL (0.00-0.10); Basophils % (A) 0.6 %; Eosinophils # (A) 0.07 X 10*3/uL (0.04-0.35); Eosinophils % (A) 1.4 %; HCT 40.2 % (37.2-46.3); HGB 13.4 g/dL (12.0-15.0); Lymphocytes # (A) 1.01 X 10*3/uL (0.90-5.00); Lymphocytes % (A) 20.1 %; MCHC 33.3 g/dL (32.0-37.0); MCV 89.9 FL (80.0-97.0); Mean Platelet Volume 12.6 FL (9.5-12.2); Monocytes # (A) 0.59 X 10*3/uL (0.20-1.00); Monocytes % (A) 11.7 %; NRBC Per 100 WBC 0 X 10*3/uL (0.00-0.01); Neutrophils # (A) 3.32 X 10*3/uL (1.80-7.70); Platelet Count 214 X 10*3/uL (140-440); RBC 4.47 X 10*6/uL (4.10-5.20); RDW 13.2 % (11.5-14.5); WBC 5.03 X 10*3/uL (4.50-10.00)
[2024-09-28 08:42] LABS: ALT 13 U/L (8-44); AST 14 U/L (13-35); Albumin 4.5 g/dL (3.8-4.9); Albumin/Globulin Ratio 2.05 Ratio (1.60-3.17); Alkaline Phosphatase 48 U/L (41-126); Blood Urea Nitrogen 9.2 mg/dL (9.0-27.0); Calcium 9.4 mg/dL (8.7-10.3); Carbon Dioxide 21.1 mmol/L (21.6-31.8); Chloride 106 mmol/L (96-109); Globulin 2.2 g/dL (1.6-3.3); Glucose 96 mg/dL (70-110); Potassium 4.1 mmol/L (3.5-5.5); Sodium 137 mmol/L (135-145); Total Bilirubin 0.5 mg/dL (0.3-1.2); Total Protein 6.7 g/dL (6.2-8.2)
[2024-09-28] MEDS: FLUoxetine HCL 20 MG CAP PO SCH (09:11)
[2024-09-28] MEDS: LOSARTAN 50 MG TAB PO SCH (09:11)
[2024-09-28] MEDS: ASPIRIN 81 MG PO SCH (09:12)
[2024-09-28] MEDS: TOPIRAMATE 25 MG TAB PO SCH (09:12)
[2024-09-28] MEDS: SPIRONOLACTONE 25 MG TAB PO SCH (09:12)
--- NOTE | 2024-09-28 12:06 | P.CRDCN ---
History of Present Illness History of present illness: HISTORY OF PRESENTING ILLNESS This is a pleasant 34-year-old female past medical history significant for nonischemic cardiomyopathy status post ICD, mitral valve replacement in [place], SVT status post ablation, hypertension and chronic nicotine dependence. She follows in the office with Dr. Keating. We have been asked to see in consultation for ICD. Patient seen and examined sitting up in bed with her at the bedside. She admits 4 days ago she took psychedelic mushrooms for leisure. She apparently had an immediate reaction after taking them and jumped out of a window. She was evaluated at [facility] and released. Then yesterday morning she was sitting at the table and told her that her face felt tingly and then apparently started convulsing. This is new for her. She has no previous history of seizure. She denies chest pain, shortness of breath, dizziness or palpitations. EKG was not obtained. Chest x-ray is negative for any acute cardiopulmonary process. Bilateral carotid Doppler unremarkable for significant stenosis. Laboratory data reviewed, CBC unremarkable, sodium 137, potassium 4.1, creatinine 0.5, toxicology positive for opiates, benzodiazepines and marijuana. Most recent echocardiogram obtained in the office September 2023 revealed ejection fraction 45% with global decrease in contractility, mitral valve bioprosthetic valve with mildly thickened leaflets with trace regurgitation mean of 4 mmHg, moderate TR with RVSP of 30 and trace aortic regurgitation. REVIEW OF SYSTEMS At the time of my exam: CONSTITUTIONAL: Denies fever or chills. CARDIOVASCULAR: Denies chest pain, shortness of breath, orthopnea, PND or palpitations. RESPIRATORY: Denies cough. GASTROINTESTINAL: Denies abdominal pain, diarrhea, constipation, nausea or vomiting. MUSCULOSKELETAL: Denies myalgias. NEUROLOGIC: Denies numbness, tingling, headache or weakness. ENDOCRINE: Denies fatigue, weight change, polydipsia or polyurina. GENITOURINARY: Denies burning, hematuria or urgency with micturation. HEMATOLOGIC: Denies history of anemia or bleeding. PHYSICAL EXAMINATION Blood pressure 143/89 heart rate 73 afebrile and maintaining oxygen saturation on room air. CONSTITUTIONAL: No apparent distress. HEENT: Head is normocephalic. Pupils are equal, round. Sclerae anicteric. Mucous membranes of the mouth are moist. No JVD. No carotid bruit. CHEST EXAMINATION: Lungs are clear to auscultation. No chest wall tenderness is noted on palpation or with deep breathing. HEART EXAMINATION: Regular rate and rhythm. S1, S2 heard. No murmurs, gallops or rub. ABDOMEN: Soft, nontender. EXTREMITIES: 2+ peripheral pulses, no lower extremity edema and no calf tenderness. NEUROLOGIC EXAMINATION: Patient is awake, alert and oriented x3. ASSESSMENT Illicit drug use Possible seizure Nonischemic cardiomyopathy status post ICD mitral valve replacement 2017 with bioprosthetic valve SVT status post ablation 2018 Hypertension Chronic nicotine dependence PLAN Echocardiogram has been obtained and will be reviewed. Advised to abstain from illicit drug use. There has been no remote transmission via her ICD since July. She was seen in the office September 14, 2024 and was stable. Continue current medical management. Thank you kindly for this consultation. Nurse Practitioner note has been reviewed, I agree with a documented findings and plan of care. Patient was seen and examined. Past Medical History Past Medical History: Asthma, Deep Vein Thrombosis (DVT), Liver Disease Additional Past Medical History / Comment(s): Cardiomyopathy; Neurofibromatosis, asthma as a child, SOB w/exertion, ?DVT several years ago, "inflammed gallbladder" per pt., nausea, abd. pain, 16%EF per pt. History of Any Multi-Drug Resistant Organisms: None Reported Past Surgical History: AICD, Cholecystectomy Additional Past Surgical History / Comment(s): Heart valve replacement in [place], Detached Retina surgery, left lung pneumothorax- after heart valve replacement. liver biopsy 2011. Defibrillator, 2019 Past Anesthesia/Blood Transfusion Reactions: No Reported Reaction Type of Cardiac Device: AICD Device Placement Date:: 01-11-18 Past Psychological History: Anxiety Additional Psychological History / Comment(s): Pt resides with her mother and pt's 3 children ages 12,6 and 5 yrs[address] Pt [address] not drive, her mother drives her places. Smoking Status: Current every day smoker Past Alcohol Use History: Occasional Additional Past Alcohol Use History / Comment(s): Pt states she started smoking in 2009 and was a ppd smoker but has cut back to 1-2 cigarettes a day. She states she was a heavy drinker but now drinks one tallboy on the weekend. Past Drug Use History: Marijuana - Past Family History Mother Family Medical History: No Reported History Father Family Medical History: Skin Disorder Additional Family Medical History / Comment(s): neruofibromatosis 2 Medications and Allergies Home Medications Medication Instructions Recorded Confirmed Type Spironolactone [Aldactone] 25 mg PO DAILY #30 tab 04/08/20 09/27/24 Rx Aspirin EC [Ecotrin Low Dose] 81 mg PO DAILY 09/27/24 09/27/24 History FLUoxetine HCL [Sarafem] 60 mg PO DAILY 09/27/24 09/27/24 History Losartan Potassium [Cozaar] 100 mg PO DAILY 09/27/24 09/27/24 History Topiramate [Topamax] 25 mg PO DAILY 09/27/24 09/27/24 History carvediloL [Coreg] 6.25 mg PO BID 09/27/24 09/27/24 History Allergies Allergy/AdvReac Type Severity Reaction Status Date / Time Latex, Natural Rubber Allergy Rash/Hives Verified 09/27/24 14:32 peas Allergy Rash/Hives Verified 09/27/24 14:32 guaifenesin [From Robitussin] AdvReac Nausea & Verified 09/27/24 14:32 Vomiting Physical Exam Vitals: Vital Signs Temp Pulse Pulse Resp BP BP BP 09/28/24 07:25 98.2 F 73 16 143/89 09/28/24 02:00 16 09/28/24 00:21 97.7 F 72 18 126/77 09/27/24 21:43 98.4 F 71 16 133/85 09/27/24 19:33 78 16 137/92 09/27/24 15:58 76 18 145/88 09/27/24 12:36 98.3 F 77 22 156/95 Pulse Ox 09/28/24 07:25 99 09/28/24 02:00 09/28/24 00:21 98 09/27/24 21:43 99 09/27/24 19:33 97 09/27/24 15:58 100 09/27/24 12:36 96 Intake and Output 09/27/24 09/28/24 09/28/24 22:59 06:59 14:59 Other: # Voids 1 1 Weight 57.153 kg 56.3 kg Results 09/28/24 04:10 09/28/24 04:10 Cardiac Enzymes 09/28/24 Range/Units 04:10 AST 14 (13-35) U/L CBC 09/28/24 Range/Units 04:10 WBC 5.03 (4.50-10.00) X 10*3/uL RBC 4.47 (4.10-5.20) X 10*6/uL Hgb 13.4 (12.0-15.0) g/dL Hct 40.2 (37.2-46.3) % Plt Count 214 (140-440) X 10*3/uL Comprehensive Metabolic Panel 09/28/24 Range/Units 04:10 Sodium 137 (135-145) mmol/L Potassium 4.1 (3.5-5.5) mmol/L Chloride 106 (96-109) mmol/L Carbon Dioxide 21.1 L (21.6-31.8) mmol/L BUN 9.2 (9.0-27.0) mg/dL Creatinine 0.5 L (0.6-1.5) mg/dL Glucose 96 (70-110) mg/dL Calcium 9.4 (8.7-10.3) mg/dL AST 14 (13-35) U/L ALT 13 (8-44) U/L Alkaline Phosphatase 48 (41-126) U/L Total Protein 6.7 (6.2-8.2) g/dL Albumin 4.5 (3.8-4.9) g/dL Current Medications Generic Name Dose Route Start Last Admin Trade Name Yohannesq PRN Reason Stop Dose Admin Aspirin 81 mg 09/28/24 09:00 09/28/24 09:12 Aspirin 81 Mg PO 81 mg DAILY ALEX Administration Carvedilol 6.25 mg 09/27/24 17:30 09/28/24 09:12 Carvedilol 6.25 Mg Tab PO 6.25 mg BID-W/MEALS ALEX Administration Fluoxetine HCl 60 mg 09/28/24 09:00 09/28/24 09:11 Fluoxetine Hcl 20 Mg Cap PO 60 mg DAILY ALEX Administration Lorazepam 1 mg 09/27/24 13:05 09/28/24 01:46 Lorazepam 1 Mg/0.5 Ml Vial IV 1 mg Q4HR PRN Administration Anxiety/seizure Losartan Potassium 100 mg 09/28/24 09:00 09/28/24 09:11 Losartan 50 Mg Tab PO 100 mg DAILY ALEX Administration Melatonin 5 mg 09/27/24 22:44 Melatonin 5 Mg Tablet PO HS PRN Insomnia Naloxone HCl 0.2 mg 09/27/24 13:02 Naloxone 0.4 Mg/Ml 1 Ml Vial IV Q2M PRN Opioid Reversal Spironolactone 25 mg 09/28/24 09:00 09/28/24 09:12 Spironolactone 25 Mg Tab PO 25 mg DAILY ALEX Administration Topiramate 25 mg 09/28/24 09:00 09/28/24 09:12 Topiramate 25 Mg Tab PO 25 mg DAILY ALEX Administration Intake and Output 09/27/24 09/28/24 09/28/24 22:59 06:59 14:59 Other: # Voids 1 1 Weight 57.153 kg 56.3 kg 09/28/24 04:10 09/28/24 04:10
--- NOTE | 2024-09-28 12:45 | CA ---
Transthoracic Echo Report Name: Radha Roa Age: 34 Gender: F : 1990 Exam Date: 09/28/2024 07:39 Exam Location: [facility] Ht (in): 59 Wt (lb): 126 Ordering Physician: Ana Lilia Mendoza MD Attending/Referring Phys: Stem Maker Ronny Ghotra RDCS Procedure CPT: Indications: stroke Cardiac Hx: MV replacement, Defibrillator, DVT, Asthma, Cardiomyopathy Technical Quality: Good Contrast 1: Definity Total Dose (mL): 2 Contrast 2: Total Dose (mL): MEASUREMENTS (Male / Female) Normal Values 2D ECHO LV Diastolic Diameter PLAX 5.1 cm 4.2 - 5.9 / 3.9 - 5.3 cm LV Systolic Diameter PLAX 4.1 cm IVS Diastolic Thickness 1.0 cm 0.6 - 1.0 / 0.6 - 0.9 cm LVPW Diastolic Thickness 1.0 cm 0.6 - 1.0 / 0.6 - 0.9 cm LV Relative Wall Thickness 0.4 LVOT Diameter 2.0 cm Aortic Root Diameter 2.3 cm LA Systolic Diameter LX 4.6 cm 3.0 - 4.0 / 2.7 - 3.8 cm LA Volume 71.8 cm??? 18 - 58 / 22 - 52 cm??? LA Volume Index 46.1 cm???/m??? 16 - 28 cm???/m??? DOPPLER MV Peak Velocity 162.3 cm/s MV Peak Gradient 10.5 mmHg MV Mean Velocity 108.9 cm/s MV Mean Gradient 5.4 mmHg MV Velocity Time Integral 29.7 cm MV Area PHT 4.4 cm??? Mitral E Point Velocity 89.0 cm/s Mitral A Point Velocity 128.4 cm/s Mitral E to A Ratio 0.7 MV Deceleration Time 204.5 ms TR Peak Velocity 165.4 cm/s TR Peak Gradient 10.9 mmHg Right Atrial Pressure 5.0 mmHg Pulmonary Artery Systolic Pressu 15.9 mmHg Right Ventricular Systolic Press 15.9 mmHg FINDINGS Left Ventricle Left ventricular ejection fraction is estimated at 35-40%. Mildly increased septal wall thickness. Moderately reduced global left ventricular systolic function. Right Ventricle Normal right ventricular size. Reduced right ventricular global systolic function. Right ventricular systolic pressure within normal limits. Right Atrium Normal right atrial size. Left Atrium Moderately increased left atrial diameter. Moderately increased left atrial volume. Mitral Valve MV replacement, moderate mitral stenosis. Trace mitral regurgitation. Aortic Valve Trileaflet aortic valve. No aortic valve stenosis or regurgitation. Tricuspid Valve Structurally normal tricuspid valve. No tricuspid stenosis. Trace tricuspid regurgitation. Pulmonic Valve Structurally normal pulmonic valve. No pulmonic stenosis. Trace pulmonic regurgitation. Pericardium No pericardial effusion. Aorta Normal size aortic root and proximal ascending aorta. CONCLUSIONS Left ventricle is mildly enlarged with a global decrease in contractility. Ejection fraction is in the 35 to 40% range. Right ventricle is of normal size and global decrease in contractility. No pulmonary hypertension. Left atrium is significantly enlarged mitral valve bioprosthesis noted stable minimal mitral insufficiency and tricuspid insufficiency. No pericardial effusion no pulmonary hypertension Previewed by: Dr. Vernon Keating MD (Electronically Signed) Final Date: 28 Sep 2024 12:44
--- NOTE | 2024-09-28 13:18 | P.CN ---
Psychiatric Consult - . Consult date: 09/28/24 Consult:: 09/28/24 13:05 IDENTIFYING DATA: This patient is a 34-year-old female, and lives with her REASON FOR REFERRAL: Psychiatry was consulted for psychosis secondary to psilocybin? HISTORY OF PRESENT ILLNESS: The patient presented to the hospital with convulsions and chest pain. Patient reportedly used mushrooms 4 days prior to arrival and had been exhibiting nightmares, shaking and seizure-like activity. UDS was positive for opiates, benzodiazepines and cannabis. Patient seen and evaluated in her room with present at bedside to which patient agreed narrative writer is able to speak in front of her . Patient denies any history of seizures however does report a family history of neurofibromatosis. Patient's states that they were celebrating their 2-year anniversary on September 22 when him and his both ingested 4 "nice size" mushrooms mixed with lemonade. Patient's states that he was fine however patient herself began acting erratic, jumping out of a window and hitting her head and ended up running into the streets. states that the police had to be called and that him and the border patrol officer both had to hold patient down. He denied any head imaging and patient herself continues to express pain on her scalp that results in numbness on the left side of her face when palpated. Patient does have a history of psilocybin in use however never ingested a huge amount. Patient continues to exhibit high anxiety, mild paranoia per however her symptoms are improving day by day. Patient expresses feelings of electrical shock pulses in her body however states that patient does have a defibrillator and he feels as though this could be related to that. At this time patient denies any suicidal or homicidal ideations, intent or plan. Patient denies any auditory, visual hallucinations and denies any delusions. Patients admits to using cigarettes, smoking 1/2 pack/day. Psychoeducation provided on the use of hallucinogens and this was strongly discouraged to which patient acknowledged. PAST PSYCHIATRIC HISTORY: Patient has a history of anxiety. She is currently prescribed Prozac 60 mg daily by her psychiatrist at [facility]. She reports 1 remote inpatient hospitalization back in elementary school. Patient denies any history of suicide attempts in the past. PAST MEDICAL HISTORY: Asthma, DVT, cardiomyopathy. ALLERGIES: as per EMR. CHEMICAL DEPENDENCY HISTORY: as per HPI. FAMILY PSYCHIATRIC/SUBSTANCE USE HISTORY: Denies SOCIAL HISTORY: Patient is and lives with her and one of her 3 children. She completed school up to the 10th grade and is currently on disability. MENTAL STATUS EXAM: General Appearance: Patient appears to be stated age is alert, pleasant, and cooperative. Patient appears to have fair hygiene and grooming wearing hospital gown with fair eye contact. Behavior: Patient is calmly lying in bed without any agitated behavior. She was intermittently tearful Speech: Patient's speech is fluent and nonpressured. Mood/Affect: Patient reports their mood is "anxious", affect is congruent Suicidality/Homicidality: Patient denies having any suicidal or homicidal ideation intent or plan. Perceptions: Patient denies any visual hallucinations and denies any auditory hallucinations Though content/process: There is no evidence of any delusional thought content and thought process is linear and goal-directed. Mild paranoia evident Memory and concentration: AOX3, grossly intact for the purposes of this session. Can spell "WORLD" backwards Judgment and insight: Poor IMPRESSIONS: Substance-induced mood disorder History of anxiety disorder PLAN: -At this time patient DOES NOT meet criteria for inpatient psychiatric admission. -Would recommend the following medication changes/additions: Continue Prozac 60 mg daily for anxiety. Discussed potentially adding Vistaril as needed given patient's increase in anxiety however patient declined at this time. Encouraged patient to follow-up with her outpatient psychiatrist through [facility] for further medication adjustments -Psychiatry will sign off at this time -Please contact with any questions.
[2024-09-28] MEDS: MELATONIN 5 MG TABLET PO PRN (23:30)
--- NOTE | 2024-09-29 01:46 | EEG ---
DATE OF SERVICE: 09/28/2024 ELECTROENCEPHALOGRAM REPORT PREAMBLE: This is a 34-year-old female, who came with some seizure-like activity. The patient also has liver disease, pacemaker, and CHF. EEG FINDINGS: This is a 21-channel digital EEG recorded with video component, utilizing 10/20 international system with referential and bipolar montages. Background consists of a predominant low-voltage fast frequency beta activity seen in bihemispheric region. Occasionally well-formed 9-10 hertz alpha activity was also seen, which is posterior dominant and seems to be reactive to eye opening and closing. Photic driving response was not seen. Different stages of sleep were not seen. No focal or generalized epileptiform activity was seen. IMPRESSION: This is a borderline abnormal EEG due to presence of excessive amount of low- voltage fast frequency beta activity, suggestive of medication effect. No focal, lateralized, or epileptiform activity was seen. MMODL / IJN: [id number] / RISHI
--- NOTE | 2024-09-29 07:24 | PN ---
PROGRESS NOTE DATE OF SERVICE: 09/28/2024 SUBJECTIVE: This 34-year-old woman was admitted with seizures, also had some paranoid delusions. Psychiatric, Neurology consultation . No chest pain. No palpitation. OBJECTIVE: VITAL SIGNS: Pulse 69, blood pressure 110/80, respirations 16. CHEST: Clear to auscultation. CARDIOVASCULAR SYSTEM: S1 and S2. ABDOMEN: Soft. NERVOUS SYSTEM: No focal deficit. LABORATORY DATA: Reviewed. ASSESSMENT: 1. Rule out generalized tonic-clonic seizures. 2. Rule out paranoid psychosis, possibly triggered by mushrooms. 3. Asthma. 4. History of deep vein thrombosis. 5. History of liver disease. 6. History of cardiomyopathy. 7. History of neurofibromatosis. 8. History of AICD. 9. Multiple medical issues. RECOMMENDATIONS: Recommend to continue current management and treatment. Otherwise, repeat labs. Closely follow with Cardiology, Neurology. Guarded prognosis. Further plans to follow. MMODL / IJN: [id number] / MTDSean
[2024-09-29 07:26] VITALS: BP 127/80; PULSE 75; TEMP 98
--- NOTE | 2024-09-29 09:00 | P.CNNES ---
History of Present Illness Consult date: 09/28/24 Requesting physician: Álvaro Sr Reason for Consult: Seizure-like activity versus TIA, possible drug-induced behavior History of Present Illness: Patient is a 34-year-old female with history of cardiomyopathy, enlarged heart since , came to the hospital by ambulance yesterday at 12:31 PM for altered mental status. Patient's was also present and both of them provided with a history. On , 09/22/2024, at around 4 PM, both of them experimented recreational mushrooms, and she took it more than usual, 4 of them. About 10 minutes after, patient started having palpitations, like her heart was stopping and she became very agitated. She tried to crawl out of the window, and her held her with her feet, but ultimately he will let her go and she fell head down about 3 to 4 feet high on the ground. Her has to call the police and she has to be pinned down, as she was going down the road. Her has to drag her in. She was taken to [facility], where she w as observed in the ER, then released at around 2 AM. She could not walk for 3 days, and stayed in bed, as her legs were bruised from all the trauma above. At night she would wake up, cries and screams. Yesterday she started complaining of numbness of the face as if her body was on fire. She laid back and then started having a convulsion, violent shaking. There was no tongue bite or loss of control of urine. He took her to [facility] but they were not satisfied and they left the hospital and then went back to [facility] for where she was transferred to [facility] for seizure-like activity. Patient is doing better now. There is no history of seizures in the past. Patient was born with enlarged heart since . She had undergone some valve replacement with pig valve in childhood. She has a defibrillator and follows up with Dr. Keating. She also has history of bypass surgery. She is currently on aspirin 81 mg daily. Patient's mentions that they have taken the same mushrooms a few times in the past, but only 1-2 each time, but this time she overdosed it and took 4 of them. It has psilocybin in it. After taking it, he states that it feels like their face is melting, gets very bright, emotions comes out. Patient had unusual reaction as mentioned above. He does not drink alcohol except very occasionally. She smokes weed once in a while. As per EMS flowsheet, patient was in the care of family, describing convulsions with possible seizure. Patient was seen at mental health services 4 days prior after having hallucinations and violent behavior after ingesting mushrooms. Per nurse, patient has been experiencing tremors, shaking, nightmares and fears of unresponsiveness, leading to being brought to the hospital. Patient was alert and awake, oriented x 3, slow to respond stating that she is scared. Patient was ambulatory without assistance with steady gait and good range of motion. Patient's vitals at the scene was blood pressure 130/88, pulse rate 78 respirations 16, saturation 100%. Patient's blood test shows normal CBC, CMP, UA, urine drug screen positive for opiate, benzodiazepine and marijuana. Patient had a carotid Doppler which revealed no significant stenosis. 2D echo showed left ventricle is mildly enlarged with global decrease in contractility. EF is 35 to 40% range. There is global decrease in contractility. No pulmonary hypertension. Left atrium is significantly enlarged. Mitral valve bioprosthesis stable. Minimal mitral insufficiency. Moderately increased left atrial diameter. Patient currently takes Coreg, losartan 100 mg, Topamax 25 mg daily, aspirin 81 mg, fluoxetine 60 mg and Aldactone. Patient has history of epilepsy in her grandmother, who used to have staring spells. Patient states she has smoked 1 pack/day for 5 years however in the last 1 year she has been smoking only half pack per day off and on. Review of Systems All pertinent positive and negative review of systems mentioned in the HPI. Otherwise unremarkable. Past Medical History Past Medical History: Asthma, Deep Vein Thrombosis (DVT), Liver Disease Additional Past Medical History / Comment(s): Cardiomyopathy; Neurofibromatosis, asthma as a child, SOB w/exertion, ?DVT several years ago, "inflammed gallbladder" per pt., nausea, abd. pain, 16%EF per pt. History of Any Multi-Drug Resistant Organisms: None Reported Past Surgical History: AICD, Cholecystectomy Additional Past Surgical History / Comment(s): Heart valve replacement in [place], Detached Retina surgery, left lung pneumothorax- after heart valve replacement. liver biopsy 2011. Defibrillator, 2019 Past Anesthesia/Blood Transfusion Reactions: No Reported Reaction Type of Cardiac Device: AICD Device Placement Date:: 01-11-18 Past Psychological History: Anxiety Additional Psychological History / Comment(s): Pt resides with her mother and pt's 3 children ages 12,6 and 5 yrs[address] Pt [address] not drive, her mother drives her places. Smoking Status: Current every day smoker Past Alcohol Use History: Occasional Additional Past Alcohol Use History / Comment(s): Pt states she started smoking in 2009 and was a ppd smoker but has cut back to 1-2 cigarettes a day. She states she was a heavy drinker but now drinks one tallboy on the weekend. Past Drug Use History: Marijuana - Past Family History Mother Family Medical History: No Reported History Father Family Medical History: Skin Disorder Additional Family Medical History / Comment(s): neruofibromatosis 2 Medications and Allergies Home Medications Medication Instructions Recorded Confirmed Type Spironolactone [Aldactone] 25 mg PO DAILY #30 tab 04/08/20 09/27/24 Rx Aspirin EC [Ecotrin Low Dose] 81 mg PO DAILY 09/27/24 09/27/24 History FLUoxetine HCL [Sarafem] 60 mg PO DAILY 09/27/24 09/27/24 History Losartan Potassium [Cozaar] 100 mg PO DAILY 09/27/24 09/27/24 History Topiramate [Topamax] 25 mg PO DAILY 09/27/24 09/27/24 History carvediloL [Coreg] 6.25 mg PO BID 09/27/24 09/27/24 History Allergies Allergy/AdvReac Type Severity Reaction Status Date / Time Latex, Natural Rubber Allergy Rash/Hives Verified 09/27/24 14:32 peas Allergy Rash/Hives Verified 09/27/24 14:32 guaifenesin [From Robitussin] AdvReac Nausea & Verified 09/27/24 14:32 Vomiting Physical Examination - Vital Signs Vital Signs: Vital Signs Temp Pulse Pulse Resp BP BP BP 09/28/24 07:25 98.2 F 73 16 143/89 09/28/24 02:00 16 09/28/24 00:21 97.7 F 72 18 126/77 09/27/24 21:43 98.4 F 71 16 133/85 09/27/24 19:33 78 16 137/92 09/27/24 15:58 76 18 145/88 Pulse Ox 09/28/24 07:25 99 09/28/24 02:00 09/28/24 00:21 98 09/27/24 21:43 99 09/27/24 19:33 97 09/27/24 15:58 100 Intake and Output 09/27/24 09/28/24 09/28/24 22:59 06:59 14:59 Other: # Voids 1 1 Weight 57.153 kg 56.3 kg Patient is a young Afro-Qat[place] female, in no acute distress. Patient is alert awake oriented to time place and person. Speech and language functions are normal. Patient can name and repeat very well. No aphasia or dysarthria. Attention, concentration and fund of knowledge is adequate. On cranial nerve examination, pupils are equal, round and reacting to light, visual simpson are full on confrontation, with no neglect on double simultaneous stimulation. Extraocular muscles are intact with no nystagmus. Face is symmetric, tongue protrudes to the midline. Palatal elevation and sensation normal, hearing and shoulder shrug normal, facial sensation normal. On muscle strength testing, there is no pronator drift and the strength is normal in arms and legs distally and proximally, except hip flexion and deltoids both are 4+5-bilaterally. Deep tendon reflexes are symmetric 1+ in the biceps and brachioradialis, did not check in the legs, as it is bruised and swollen from recent trauma. Plantars are flat. Sensory to touch is equal with no neglect on double simultaneous stimulation. Cerebellar function showed no ataxia for [id number]-[id number] testing. No dysdiadochokinesia. No ataxia for dojb-ez-pfna testing on either side. Tone and bulk of muscles normal. Gait deferred.. On general examination, there is no carotid bruit or murmur, S1-S2 audible. Chest is clear on consultation. Abdomen is soft nontender. No organomegaly, bowel sounds present. Peripheral pulses are present. No peripheral edema. Results - Laboratory Findings CBC and BMP: 09/28/24 04:10 09/28/24 04:10 Abnormal Lab Findings: Abnormal Labs 09/27/24 09/28/24 09/28/24 17:44 04:10 04:10 MPV 12.6 H Carbon Dioxide 21.1 L Creatinine 0.5 L Urine Appearance Cloudy H Urine Ketones 1+ H Urine Mucus Many H Urine Opiates Screen Detected H U Benzodiazepines Scrn Detected H U Marijuana (THC) Screen Detected H Assessment and Plan Assessment: * Convulsions, likely due to withdrawal from substance abuse. Patient took more than usual dose of recreational mushrooms, resulting in severe side effects. At present her mentation appears normal. * Substance abuse disorder * Anxiety disorder * Nonischemic cardiomyopathy status post ICD mitral valve replacement 2017 with bioprosthetic valve * History of cardiac ablation for SVT * Hypertension * Tobacco use Plan: * Patient had an EEG performed, which was borderline abnormal EEG due to presence of excessive amount of low voltage fast frequency beta activity, suggestive of medication effect. No focal, lateralized or epileptiform activity was seen. * No indication for antiepileptic medication. * Patient strongly counseled about abstaining from all recreational drugs, particularly mushrooms. * Cardiology also on board to rule out arrhythmia. * Recommend tobacco cessation. * Continue aspirin 81 mg. * Neurologically clear for discharge. * Thank you for the consult. Time with Patient: Greater than 30
--- NOTE | 2024-09-29 09:39 | XR ---
EXAMINATION TYPE: XR cervical spine comp DATE OF EXAM: 09/29/2024 9:21 AM COMPARISON: 11/25/2019 CLINICAL INDICATION: Female, 34 years old with history of fall; PHH, pain TECHNIQUE: 5 views FINDINGS: Predental space widening or prevertebral soft tissue swelling. Alignment and disc interspaces are chirstie ntained. No significant bony or foraminal narrowing identified on either side. Normal odontoid view. Median sternotomy wires and pacer leads partially visualized. IMPRESSION: No prevertebral soft tissue swelling or malalignment. No significant bony neuroforaminal narrowing id entified on either side. [facility], , 09/29/2024 9:37 AM
[2024-09-29 10:16] LABS: HGB 13.2 g/dL (12.0-15.0); RBC 4.34 X 10*6/uL (4.10-5.20)
[2024-09-29 10:17] LABS: Basophils # (A) 0.02 X 10*3/uL (0.00-0.10); Basophils % (A) 0.4 %; Eosinophils # (A) 0.07 X 10*3/uL (0.04-0.35); Eosinophils % (A) 1.3 %; HCT 39.4 % (37.2-46.3); Lymphocytes # (A) 1.11 X 10*3/uL (0.90-5.00); Lymphocytes % (A) 20.6 %; MCH 30.4 pg (27.0-32.0); MCHC 33.5 g/dL (32.0-37.0); MCV 90.8 FL (80.0-97.0); Mean Platelet Volume 12.5 FL (9.5-12.2); Monocytes # (A) 0.63 X 10*3/uL (0.20-1.00); Monocytes % (A) 11.7 %; NRBC Per 100 WBC 0 X 10*3/uL (0.00-0.01); Neutrophils # (A) 3.56 X 10*3/uL (1.80-7.70); Neutrophils % (A) 65.8 %; Platelet Count 189 X 10*3/uL (140-440); RDW 13.2 % (11.5-14.5)
[2024-09-29 10:25] LABS: BUN/Creat Ratio 16.17 Ratio (12.00-20.00); Blood Urea Nitrogen 9.7 mg/dL (9.0-27.0); Glucose 91 mg/dL (70-110)
[2024-09-29 10:26] LABS: Calcium 9.1 mg/dL (8.7-10.3); Carbon Dioxide 19.7 mmol/L (21.6-31.8); Chloride 107 mmol/L (96-109); Potassium 4.2 mmol/L (3.5-5.5); Sodium 136 mmol/L (135-145)
--- NOTE | 2024-09-29 10:46 | P.PN ---
Subjective Progress Note Date: 09/29/24 HPI: This lady is resting comfortably has no chest pain or shortness of breath complains of pain over the scalp when she fell and hit her head against the window. If she is in sinus rhythm. She has nonischemic cardiomyopathy mitral valve replacement with an ICD. No chest pain or shortness of breath. I am recommending an x-rays of cervical spine if this is normal she can be discharged. She had a CT scan of the head that was unremarkable. PHYSICIAL EXAM: Vitals are stable S1-S2 heard normally short systolic murmur noted lungs are clear abdomen and lower EXTR exam is unremarkable.. IMPRESSION: 1. Agitation seizure-like activity following ingestion of psychedelic mushroom. 2. Nonischemic cardiomyopathy with mitral valve replacement and ICD. 3. History of drug abuse in the past. 4.. 5.. RECOMMENDATIONS: I am recommending that we obtain x-ray of cervical spine if this is normal she can be discharged whenever okay with the admitting doctor and I will see her in the office as per her scheduled appointment. Same medical regimen that she is currently taking.. Objective - Vital Signs Vital signs: Vital Signs Temp 98.0 F 09/29/24 06:55 Pulse 75 09/29/24 06:55 Resp 16 09/29/24 06:55 BP 127/80 09/29/24 06:55 Pulse Ox 100 09/29/24 06:55 FiO2 Intake & Output 09/28/24 09/29/24 09/29/24 18:59 06:59 18:59 Intake Total 240 Balance 240 Weight 48 kg Intake: Oral 240 Other: # Voids 1 2 - Labs CBC & Chem 7: 09/29/24 06:49 09/29/24 06:49 Labs: Abnormal Lab Results - Last 24 Hours (Table) 09/29/24 09/29/24 Range/Units 06:49 06:49 MPV 12.5 H (9.5-12.2) FL Carbon Dioxide 19.7 L (21.6-31.8) mmol/L
--- NOTE | 2024-09-29 12:53 | P.PN ---
Subjective Progress Note Date: 09/29/24 Patient was seen for a follow-up. Patient is laying comfortably in the bed. Mentation appears normal. Her states that patient feels much better. Certain spots on the head hurt otherwise doing well. I reviewed records from [facility]. Patient had CT head performed on 09/27/2024, which was compared to the CT head from 09/24/2024, which revealed no acute intracranial abnormality. Her CMP was normal. test negative. Blood alcohol level <13. Urine drug screen was positive for marijuana and opiates. CBC was normal. Troponin negative Objective - Vital Signs Vital signs: Vital Signs Temp 98.0 F 09/29/24 06:55 Pulse 75 09/29/24 06:55 Resp 16 09/29/24 06:55 BP 127/80 09/29/24 06:55 Pulse Ox 100 09/29/24 06:55 FiO2 Intake & Output 09/28/24 09/29/24 09/29/24 18:59 06:59 18:59 Intake Total 240 Balance 240 Weight 48 kg Intake: Oral 240 Other: # Voids 1 2 - Exam Examination unchanged. Mentation normal. - Labs CBC & Chem 7: 09/29/24 06:49 09/29/24 06:49 Labs: Abnormal Lab Results - Last 24 Hours (Table) 09/29/24 09/29/24 Range/Units 06:49 06:49 MPV 12.5 H (9.5-12.2) FL Carbon Dioxide 19.7 L (21.6-31.8) mmol/L Assessment and Plan Assessment: * Convulsions, likely due to withdrawal from substance abuse. Patient took more than usual dose of recreational mushrooms, resulting in severe side effects. At present her mentation appears normal. * Substance abuse disorder * Anxiety disorder * Nonischemic cardiomyopathy status post ICD mitral valve replacement 2017 with bioprosthetic valve * History of cardiac ablation for SVT * Hypertension * Tobacco use Plan: * EEG was borderline abnormal EEG due to presence of excessive amount of low voltage fast frequency beta activity, suggestive of medication effect. No focal, lateralized or epileptiform activity was seen. * No indication for antiepileptic medication. * Patient strongly counseled about abstaining from all recreational drugs, particularly mushrooms. * Cardiology also on board to rule out arrhythmia. * Recommend tobacco cessation. * Continue aspirin 81 mg. * Neurologically clear for discharge.
--- NOTE | 2024-09-30 03:45 | DS ---
DISCHARGE SUMMARY FINAL DIAGNOSES: 1. 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 2. Asthma. 3. Deep venous thrombosis. 4. History of liver disease. 5. Cardiomyopathy. 6. History of neurofibromatosis. 7. History of AICD. 8. Multiple medical issues. DISCHARGE DISPOSITION: The patient is being discharged in stable condition and guarded prognosis. HISTORY OF PRESENT ILLNESS: This 34-year-old woman was admitted with possible paranoid psychosis triggered by mushrooms, treated symptomatically, improved significantly. Seen by multiple consultants. Recommended discharge and close outpatient followup otherwise. DISCHARGE MEDICATIONS: Resume the home medications and follow up with Dr. Parker, primary physician; Cardiology; Neurology as recommended. MMODL / IJN: [id number] /
== END 2024-09-29 14:03 | disposition home or self-care (01) | DRG 53 ==
LOC: EC 12:31 → 6NMEDSUR 13:14
PROVIDERS: ADMIT Internal Medicine; ATTEND Internal Medicine
DX: R56.9 Unspecified convulsions (principal); T50.901A Poisoning by unspecified drugs, medicaments and biological substances, accidental (unintentional), initial encounter; F16.10 Hallucinogen abuse, uncomplicated; F19.139 Other psychoactive substance abuse with withdrawal, unspecified; F17.210 Nicotine dependence, cigarettes, uncomplicated; F19.14 Other psychoactive substance abuse with psychoactive substance-induced mood disorder; F22 Delusional disorders; F41.9 Anxiety disorder, unspecified; I42.8 Other cardiomyopathies; R45.6 Violent behavior; K76.9 Liver disease, unspecified; I47.10 Supraventricular tachycardia, unspecified; J45.909 Unspecified asthma, uncomplicated; Q85.00 Neurofibromatosis, unspecified; R45.1 Restlessness and agitation; I34.0 Nonrheumatic mitral (valve) insufficiency; N30.90 Cystitis, unspecified without hematuria; W13.4XXA Fall from, out of or through window, initial encounter; Z95.2 Presence of prosthetic heart valve; Y93.39 Activity, other involving climbing, rappelling and jumping off; Z79.82 Long term (current) use of aspirin; Z79.899 Other long term (current) drug therapy; Z86.718 Personal history of other venous thrombosis and embolism; Z87.09 Personal history of other diseases of the respiratory system; Z95.810 Presence of automatic (implantable) cardiac defibrillator; Z28.21 Immunization not carried out because of patient refusal; Z71.89 Other specified counseling; Z91.148 Patient's other noncompliance with medication regimen for other reason
CPT/HCPCS: 71045; 72050; 80048; 80053; 80306; 81001; 85025; 93005; 93306; 93880; 95816; 99285